=== PATIENT | male | born 1955 | race Caucasian/White ===

== ENCOUNTER 2021-02-05 10:15 | Emergency (ER) | payer OTHER, SELFPAY ==
[2021-02-05] VITALS (10 sets, daily range): BP systolic 140–159; BP diastolic 70–91; PULSE 90–98; RESP 11–26; TEMP 36.2; O2SAT 91–97
--- NOTE | ~2021-02-05 | CT_ITS ---
EXAMINATION: CT abdomen pelvis w con DATE: 02/05/2021 11:39 INDICATION: Right lower quadrant pain. History of diverticulitis. TECHNIQUE: Computed tomography (CT) of the abdomen and pelvis was performed with 100 cc Omnipaque 350 intravenous contrast. The dose-length product was 1307.27 mGy-cm. Automated exposure control and ite rative reconstruction technique were employed. COMPARISON: CT dated 03/17/2015. FINDINGS: There are emphysematous changes in the lung bases. There is a 5 mm. perifissural nodule, im age 16. No significant pleural or pericardial effusion. Heart size is normal. There is atherosclerosi s of the aorta without evidence for aneurysm. Fatty infiltration of the liver. The spleen, pancreas, adrenal glands and kidneys are unremarkable. T here is a debris filled duodenal diverticulum. Colonic diverticulosis without evidence for diverticul itis. Small fat-containing umbilical hernia. Normal appendix. Nonobstructive bowel gas pattern. No fr ee air or free fluid. Mildly enlarged prostate gland. Gallbladder is present. There is evidence for p rior sigmoid epiploic appendagitis. Mild lumbar spondylosis. Status post median sternotomy for CABG. IMPRESSION: 1. No acute abdominal abnormality. 2: No significant change to 5 mm. perifissural right lung nodule, likely benign. Follow-up low dose CT) 12 months recommended. Reviewed, dictated and finalized at location A. IMPRESSION: 1. No acute abdominal abnormality. 2: No significant change to 5 mm. perifissural right lung nodule, likely benig n. Follow-up low dose CT) 12 months recommended.
--- NOTE | 2021-02-05 10:59 | ED.GENADULT ---
HPI - General Adult General Chief complaint: Abdominal Pain Stated complaint: abd pain Time Seen by Provider: 02/05/21 10:25 Source: patient Mode of arrival: ambulatory Limitations: no limitations History of Present Illness HPI narrative: Patient with history of diabetes, hypertension, triple bypass, hypercholesterolemia, diverticulitis presents with chief complaint of right lower quadrant abdominal pain. Patient states the pain has been intermittent over the past 2 months however over the past 3 days it has been persistent and worsening. Patient reports feeling like he has some constipation however the past couple days he has had more bowel movements, but his abdominal pain has increased. He denies right leg, mucus or dark tarry stools. Patient states when he originally started having the intermittent abdominal pains he thought it was due to starting Ozempic as he has started it just before. He states that he has not been seen by his primary care regarding the issues. Patient states he has a history of diverticulitis and polyps. Patient's last colonoscopy has been within the last 5 years but he has not had one in the last year. Patient states that he did have a tooth pulled a week ago and was given Tylenol 3 but he has not taken those since the weekend. Patient also reports that he received his Covid vaccination on Thursday. He reports he did have a a fever of 102 ?F yesterday. Related Data Home Medications Medication Instructions Recorded Confirmed aspirin [Adult Low Dose Aspirin] PO 02/05/21 atorvastatin 80 mg PO HS 02/05/21 empagliflozin 25 mg PO DAILY 02/05/21 ezetimibe 10 mg PO DAILY 02/05/21 lisinopril 10 mg PO DAILY 02/05/21 metformin mg TID 02/05/21 metoprolol tartrate 50 mg PO Q12H 02/05/21 [id number]-vit K tablet PO 02/05/21 [Adults Multivitamin] omeprazole 20 mg PO DAILY 02/05/21 Allergies Allergy/AdvReac Type Severity Reaction Status Date / Time No Known Allergies Allergy Verified 02/05/21 10:46 Review of Systems Review of Systems: Narrative: CONSTITUTIONAL: Reports fever Denies chills or sweats. EYES: Denies visual changes, redness, or discharge. ENT: Denies rhinorrhea, congestion, sore throat, or otalgia. CARDIOVASCULAR: Denies chest pain, palpitations, or edema. RESPIRATORY: Denies cough or dyspnea. GASTROINTESTINAL:Reports abdominal pain and constipation, then increased stools Denies nausea, vomiting GENITOURINARY: Denies dysuria or hematuria. SKIN: Denies rash or itching. MUSCULOSKELETAL: Denies back pain, joint pain, or myalgia. NEUROLOGIC: Denies headache, numbness, dizziness, or weakness. PSYCHIATRIC: Denies anxiety or depression. [facility] Family History Family History (Updated 07/13/14 @ 07:13 by DOCTOR UNKNOWN) Father Family history of congestive heart failure Social History Social History Smoking end date: 11/16/01 Exam Narrative: Exam Narrative: GENERAL: Well-appearing, well-nourished. HEAD: Normocephalic, atraumatic. EYES: PERRLA and EOMI. ENT: Nares clear, no rhinorrhea or epistaxis. Mucous membranes moist. Bilateral TMs pearly garcía nonbulging NECK: Supple. No adenopathy or masses. No vertebral tenderness or loss of ROM. CHEST: Clear to auscultation. No respiratory distress. No wheezes rales or rhonchi HEART: Regular rate and rhythm. Normal peripheral pulses. ABDOMEN: Soft, nontender to palpation, nondistended, rotund abdomen, normal active bowel sounds. No bruises noted. EXTREMITIES: No acute changes in ROM. No edema. SKIN: Warm, dry, no rash. NEURO: No focal deficits. Alert and oriented x3. PSYCH: Normal mood and affect. Course Vital Signs Vital signs: Vital Signs Temperature 97.2 F L 02/05/21 10:19 Pulse Rate 98 02/05/21 10:19 Respiratory Rate 20 02/05/21 10:19 Blood Pressure 140/81 02/05/21 10:19 Pulse Oximetry 97 02/05/21 10:19 Temperature 97.2 F L 02/05/21 10:19 Pulse Rate 90 02/05/21 12:52 Respiratory
[2021-02-05] MEDS: METOCLOPRAMIDE HCL INJ 10 MG/2 ML VIAL IV PUSH (11:02)
[2021-02-05 11:05] LABS: Basophils Absolute Auto 0.1 K/mm3 (0.0-0.1); Basophils Percent Auto 0.5 % (0.2-1.2); Eosinophils Absolute Auto 0.1 K/mm3 (0-0.3); Eosinophils Percent Auto 0.8 % (0-4.4); Hematocrit 43.3 % (42.0-52.0); Hemoglobin 14.7 g/dL (14.0-18.0); Immature Granulocyte Absolute 0.05 K/mm3 (0.00-0.031); Immature Granulocyte Percent A 0.4 % (0-0.5); Lymphocytes Absolute Auto 2.37 K/mm3 (0.9-3.2); Lymphocytes Percent Auto 20.7 % (18.3-44.2); Mean Corpuscular HGB Conc 33.9 g/dl (32-36); Mean Corpuscular Hemoglobin 31.1 pg (26-34); Mean Corpuscular Volume 91.5 fl (80-100); Mean Platelet Volume 9.1 fl (7.4-10.4); Monocytes Absolute Auto 1.3 K/mm3 (0.1-0.6); Monocytes Percent Auto 11.3 % (2.6-8.5); Neutrophils Absolute Auto 7.6 K/mm3 (1.3-6.7); Neutrophils Percent Auto 66.3 % (45.5-73.1); Platelet Count Result 179 k/mm3 (150-375); Red Blood Count 4.73 M/mm3 (4.6-6.20); Red Cell Distribution Width 12.4 % (11.5-14.5); White Blood Count 11.5 K/mm3 (4.5-10.0)
[2021-02-05 11:15] LABS: Add Urine Microscopic? YES; Appearance Urine Clear (Clear); Bilirubin Urine Negative (Negative); Blood Urine Negative (Negative); Color Urine Yellow (Yellow); Glucose Urine UA 3+ mg/dL (Negative); Ketones Urine 1+ mg/dL (Negative); Leukocyte Esterase Ur Negative LEU/UL (Negative); Mucus Urine Rare /lpf; Nitrate Urine Negative (Negative); Protein Urine Negative (Negative); RBC Urine 0-2 /hpf (0-2); Urobilinogen Urine Negative mg/dL (<2.0); WBC Urine 0-3 /hpf
[2021-02-05 11:16] LABS: Specific Grav Ur 1.038 (1.001-1.035)
[2021-02-05 11:19] LABS: Alanine Aminotransferase 23 U/L (4-50); Albumin Level 3.8 g/dL (3.5-5.1); Alkaline Phosphatase 64 U/L (38-126); Anion Gap 8 mmol/L (8-16); Aspartate Amino Transferase 28 U/L (17-59); Bilirubin,Total 0.9 mg/dL (0.2-1.3); Blood Urea Nitrogen 17 mg/dL (9-20); Carbon Dioxide 23 mmol/L (22-30); Chloride 103 mmol/L (98-107); Estimated CRCL calculation 96 ml/min; Estimated Glomerular Filt Rate > 60; Glucose 212 mg/dL (75-110); Lipase 56 U/L (23-300); Potassium 3.7 mmol/L (3.4-5.0); Sodium 134 mmol/L (137-145)
== END 2021-02-05 12:53 | disposition home or self-care (01) ==
PROVIDERS: Physician Assistant; Emergency Provider Emergency Medicine
DX: R10.31 Right lower quadrant pain (principal); E11.9 Type 2 diabetes mellitus without complications; I10 Essential (primary) hypertension; E78.00 Pure hypercholesterolemia, unspecified; Z79.84 Long term (current) use of oral hypoglycemic drugs; Z79.82 Long term (current) use of aspirin; Z95.1 Presence of aortocoronary bypass graft; I25.10 Atherosclerotic heart disease of native coronary artery without angina pectoris
CPT/HCPCS: 36415; 74177; 80053; 81001; 83690; 85025; 96374; 99284; J2765; Q9967

== ENCOUNTER 2022-06-15 00:29 | Emergency (ER) | payer MEDICARE, OTHER, SELFPAY ==
[2022-06-15] VITALS (18 sets, daily range): BP systolic 146–178; BP diastolic 51–83; PULSE 60–77; RESP 15–24; TEMP 36.2; O2SAT 93–100
--- NOTE | ~2022-06-15 | CT_ITS ---
EXAMINATION: CT abdomen pelvis w con DATE: 06/15/2022 02:09 INDICATION: RUQ PAIN. TECHNIQUE: Computed tomography (CT) of the abdomen and pelvis was performed with 100 mL Omnipaque-300 intravenous contrast. Automated exposure control and iterative reconstruction technique were employe d. The dose-length product was 1193.29 mGy-cm. COMPARISON: 02/05/2021. FINDINGS: Lower thorax: Left lower lobe air cysts, stable. Unchanged right middle lobe intrapulmonary lymph nod e. Intact lower sternotomy wires. Coronary artery calcification. Liver: Normal. Biliary/Gallbladder: Gallbladder is normal. No bile duct dilation. Pancreas: No mass or duct dilation. Spleen: Normal. Adrenals:No mass. Kidneys: No mass, stone, or hydronephrosis. GI tract: Duodenal diverticulum. No small or large bowel dilation. Appendix not visualized. Diverticu losis without diverticulitis. Mesentery/Peritoneum: No ascites, mass, or free air. Retroperitoneum: No mass. Atherosclerotic abdominal aortic and/or arterial calcifications. Pelvis: Bladder wall thickening likely due to outlet compromise from prostatomegaly. Soft Tissues: Soft tissues and body wall unremarkable. Bones: No acute osseous finding. IMPRESSION: No acute abdominopelvic process. Reviewed, dictated and finalized at location K.
[2022-06-15] MEDS: SODIUM CHLORIDE 0.9% IV 1,000 ML 999 ML IV CONT (01:09)
[2022-06-15] MEDS: ONDANSETRON INJ 4 MG/2 ML VIAL IV PUSH (01:09)
[2022-06-15] MEDS: HYDROmorphone HCL INJ (*CRX) 1 MG/ML SYR 0.5 MG IV PUSH (01:09)
[2022-06-15] MEDS: SODIUM CHLORIDE 0.9% IV 100 ML 500 ML (01:10)
[2022-06-15 01:27] LABS: Basophils Absolute Auto 0.1 K/mm3 (0.0-0.1); Basophils Percent Auto 0.6 % (0.2-1.2); Eosinophils Absolute Auto 0.6 K/mm3 (0-0.3); Eosinophils Percent Auto 5.2 % (0-4.4); Hematocrit 41.9 % (42.0-52.0); Hemoglobin 13.3 g/dL (14.0-18.0); Immature Granulocyte Absolute 0.03 K/mm3 (0.00-0.031); Immature Granulocyte Percent A 0.2 % (0-0.5); Lymphocytes Percent Auto 31.7 % (18.3-44.2); Mean Corpuscular HGB Conc 31.7 g/dl (32-36); Mean Corpuscular Hemoglobin 30.3 pg (26-34); Mean Corpuscular Volume 95.4 fl (80-100); Mean Platelet Volume 10.1 fl (7.4-10.4); Monocytes Absolute Auto 1.2 K/mm3 (0.1-0.6); Monocytes Percent Auto 9.9 % (2.6-8.5); Neutrophils Absolute Auto 6.4 K/mm3 (1.3-6.7); Neutrophils Percent Auto 52.4 % (45.5-73.1); Platelet Count Result 271 k/mm3 (150-375); Red Blood Count 4.39 M/mm3 (4.6-6.20); Red Cell Distribution Width 13.3 % (11.5-14.5); White Blood Count 12.3 K/mm3 (4.5-10.0)
--- NOTE | 2022-06-15 01:32 | ED.ABDPAIN ---
HPI - Abdominal Pain General Chief Complaint: Abdominal Pain Stated Complaint: abd/flank pain Time Seen by Provider: 06/15/22 00:45 History of Present Illness HPI narrative: Patient is a 66-year-old male complaining of right mid abdominal pain, dull, 8 out of 10, nonradiating, worse after eating started tonight and has been constant. Patient states that he has had the same pain for the past few months now and usually worse after eating but tonight it has persisted and that is why he is here. Patient denies any chest pain, shortness of breath, nausea, vomiting, diarrhea, fever or chills. Related Data Home Medications Medication Instructions Recorded Confirmed aspirin 81 mg tablet PO 02/05/21 atorvastatin 80 mg tablet 80 mg PO HS 02/05/21 empagliflozin 25 mg tablet 25 mg PO DAILY 02/05/21 ezetimibe 10 mg tablet 10 mg PO DAILY 02/05/21 lisinopril 20 mg tablet 10 mg PO DAILY 02/05/21 metformin 1,000 mg tablet mg TID 02/05/21 metoprolol tartrate 100 mg tablet 50 mg PO Q12H 02/05/21 multivit with minerals-iron 18 tablet PO 02/05/21 mg-folic ac 400 mcg-vit K 25 mcg tablet (Adults Multivitamin) omeprazole 20 mg capsule,delayed 20 mg PO DAILY 02/05/21 release Allergies Allergy/AdvReac Type Severity Reaction Status Date / Time No Known Allergies Allergy Verified 06/15/22 00:50 Review of Systems Review of Systems: All systems reviewed & are unremarkable except as noted in HPI and below Constitutional: Constitutional: Denies body ache(s), Denies chills, Denies excessive sweating, Denies fatigue, Denies fever(s), Denies headache(s), Denies lethargy, Denies malaise, Denies weakness and Denies weight loss Eyes: Eyes: Denies blurry vision, Denies change in vision and Denies loss of vision ENT: Denies dizziness, Denies ear discharge, Denies headache(s), Denies lip swelling, Denies epistaxis, Denies nasal congestion, Denies neck pain, Denies throat swelling and Denies tongue swelling Cardiovascular: Cardiovascular: Denies chest pain, Denies chest pain at rest, Denies chest pain with activity, Denies diaphoresis, Denies rapid heart rate, Denies edema, Denies irregular heart rhythm, Denies lightheadedness, Denies palpitations, Denies dyspnea and Denies dyspnea on exertion Respiratory: Respiratory: Denies chest congestion, Denies cough, Denies hemoptysis, Denies dyspnea and Denies dyspnea on exertion Gastrointestinal: Gastrointestinal: Denies melena, Denies hematochezia, Denies diarrhea, Denies nausea, Denies vomiting and Denies hematemesis Musculoskeletal: Musculoskeletal: Denies abnormal gait, Denies deformity, Denies joint swelling, Denies limited range of motion, Denies neck pain and Denies numbness Neurologic: Denies Abnormal speech present, Denies abnormal gait, Denies confusion, Denies dizziness, Denies headache(s), Denies focal weakness, Denies loss of vision, Denies numbness, Denies Other visual disturbances, Denies Sensory deficit (Neuro) and Denies weakness Psychiatric: Psychiatric: Denies confusion, Denies depression, Denies auditory hallucinations, Denies homicidal ideation and Denies suicidal ideation Endocrine: Endocrine: Denies cold intolerance, Denies excessive sweating, Denies fatigue, Denies heat intolerance and Denies palpitations Hematologic/Lymphatic: Hematologic/Lymphatic: Denies easy bleeding and Denies easy bruising Allergic/Immunologic: Allergic/Immunologic: Denies lip swelling, Denies throat swelling and Denies tongue swelling [facility] Family History Family History (Updated 07/13/14 @ 07:13 by DOCTOR UNKNOWN) Father Family history of congestive heart failure Social History Social History Smoking end date: 11/16/01 Comments Past medical history: Hypertension, hyperlipidemia, diabetes Family history: Hypertension diabetes Social history: Non-smoker no EtOH no drug use, lives at home Exam Const: General: cooperative, healthy appearing, comfortable, no acute distress, well developed,
[2022-06-15 01:55] LABS: Alanine Aminotransferase 20 U/L (6-50); Albumin Level 3.3 g/dL (3.5-5.1); Alkaline Phosphatase 54 U/L (38-126); Anion Gap 7 mmol/L (8-16); Aspartate Amino Transferase 23 U/L (17-59); Bilirubin,Total 0.5 mg/dL (0.2-1.3); Blood Urea Nitrogen 19 mg/dL (9-20); Calcium 8.5 mg/dL (8.4-10.2); Carbon Dioxide 26 mmol/L (22-30); Chloride 104 mmol/L (98-107); Estimated CRCL calculation 97 ml/min; Estimated Glomerular Filt Rate > 60; Glucose 137 mg/dL (65-110); Lipase 74 U/L (23-300); Potassium 4.7 mmol/L (3.4-5.0); Sodium 137 mmol/L (137-145)
[2022-06-15 03:10] LABS: Appearance Urine Clear (Clear); Bilirubin Urine Negative (Negative); Blood Urine Negative (Negative); Color Urine Yellow (Yellow); Glucose Urine UA 3+ mg/dL (Negative); Ketones Urine Negative (Negative); Leukocyte Esterase Ur Negative LEU/UL (Negative); Nitrate Urine Negative (Negative); Protein Urine Negative (Negative); Specific Grav Ur 1.015 (1.001-1.035); Urobilinogen Urine 0.2 mg/dL (<2.0)
[2022-06-15 03:13] LABS: Mucus Urine Rare /lpf
[2022-06-15 03:14] LABS: Add Urine Microscopic? YES
[2022-06-15] MEDS: HYDROcodone/acetaminophen (*CRX) 5-325 MG TABLET 1 TAB PO (03:46)
== END 2022-06-15 03:58 | disposition home or self-care (01) ==
PROVIDERS: Emergency Provider Emergency Medicine
DX: R10.9 Unspecified abdominal pain (principal); E78.5 Hyperlipidemia, unspecified; E11.9 Type 2 diabetes mellitus without complications; Z79.84 Long term (current) use of oral hypoglycemic drugs; Z79.01 Long term (current) use of anticoagulants; Z87.891 Personal history of nicotine dependence
CPT/HCPCS: 36415; 74177; 80053; 81001; 83690; 85025; 96361; 96374; 96375; 99284; A9270; J1170; J2405; J7030; Q9967

== ENCOUNTER 2022-08-22 11:39 | Inpatient (IN) | payer MEDICARE, OTHER, SELFPAY ==
[2022-08-22] VITALS (16 sets, daily range): BP systolic 116–145; BP diastolic 48–77; PULSE 70–90; RESP 12–21; TEMP 36.3–36.8; O2SAT 98–100; BMI 33.7
--- NOTE | ~2022-08-22 | XR_ITS ---
EXAMINATION: XR chest 2V DATE: 08/22/2022 12:10 INDICATION: Chest pain TECHNIQUE: PA and lateral views of the chest are obtained. COMPARISON: 04/18/2019, 10/29/2011 FINDINGS: The lungs are free of acute opacities. No pleural effusion or pneumothorax. The cardiomedia stinal silhouette is normal. There is mild thoracic spondylosis. Median sternotomy wires and mediasti nal surgical clips are seen, likely from prior coronary artery bypass grafting. IMPRESSION: 1. No acute cardiopulmonary abnormality. Reviewed, dictated and finalized at location A.
--- NOTE | 2022-08-22 11:43 | ECG_ITS ---
Measurements Intervals [place] Rate: 73 P: 44 FL: 158 QRS: -13 QRSD: 99 T: -41 QT: 386 QTc: 427 Interpretive Statements SINUS RHYTHM INCOMPLETE RIGHT BUNDLE BRANCH BLOCK [90+ ms QRS DURATION, TERMINAL R IN V1/V2, 40+ ms S IN I/aVL/V4/V5/V6] T-WAVE ABNORMALITY CONSIDER INFERIOR ISCHEMIA ABNORMAL ECG COMPARED WITH 04/18/2019/INFERIOR T-WAVE INVERSIONS ARE SEEN Electronically Signed On 08-22-2022 13:52:56 CDT by Jose D Harris M.D.
[2022-08-22 12:14] LABS: Basophils Absolute Auto 0.1 K/mm3 (0.0-0.1); Basophils Percent Auto 0.7 % (0.2-1.2); Eosinophils Absolute Auto 0.4 K/mm3 (0-0.3); Eosinophils Percent Auto 4.5 % (0-4.4); Hemoglobin 13.2 g/dL (14.0-18.0); Immature Granulocyte Absolute 0.01 K/mm3 (0.00-0.031); Immature Granulocyte Percent A 0.1 % (0-0.5); Lymphocytes Absolute Auto 2.67 K/mm3 (0.9-3.2); Lymphocytes Percent Auto 32.5 % (18.3-44.2); Mean Corpuscular Hemoglobin 30.1 pg (26-34); Mean Corpuscular Volume 91.3 fl (80-100); Mean Platelet Volume 9.1 fl (7.4-10.4); Monocytes Absolute Auto 0.7 K/mm3 (0.1-0.6); Neutrophils Absolute Auto 4.5 K/mm3 (1.3-6.7); Neutrophils Percent Auto 54.2 % (45.5-73.1); Platelet Count Result 277 k/mm3 (150-375); Red Blood Count 4.38 M/mm3 (4.6-6.20); Red Cell Distribution Width 13.2 % (11.5-14.5); White Blood Count 8.2 K/mm3 (4.5-10.0)
[2022-08-22 12:28] LABS: Prothrombin Time 12.9 Seconds (11.1-14.7)
[2022-08-22 12:43] LABS: Alanine Aminotransferase 25 U/L (6-50); Albumin Level 3.8 g/dL (3.5-5.1); Alkaline Phosphatase 50 U/L (38-126); Anion Gap 9 mmol/L (8-16); Aspartate Amino Transferase 34 U/L (17-59); Bilirubin,Total 0.8 mg/dL (0.2-1.3); Blood Urea Nitrogen 15 mg/dL (9-20); Calcium 8.7 mg/dL (8.4-10.2); Carbon Dioxide 21 mmol/L (22-30); Chloride 108 mmol/L (98-107); Estimated CRCL calculation 112 ml/min; Estimated Glomerular Filt Rate > 60; Glucose 122 mg/dL (65-110); Lipase 121 U/L (23-300); Potassium 4.3 mmol/L (3.4-5.0); Sodium 138 mmol/L (137-145)
--- NOTE | 2022-08-22 13:13 | ED.CHESTPAIN ---
HPI - Chest Pain General Chief Complaint: Chest Pain Stated Complaint: chest pain Time Seen by Provider: 08/22/22 12:02 Source: patient and RN notes reviewed Mode of arrival: ambulatory Limitations: no limitations History of Present Illness HPI narrative: This is a 66 year old male with history of hypertension, DM, CAD s/p CABG , and hyperlipidemia who presents for evaluation of chest pain. Patient reports intermittent midsternal chest pain for months. He states this pain is located midsternal and it radiates to his left shoulder and left arm. He has associated nausea and dizziness. Today he had episode of nausea and emesis before he developed chest pain. He describes this pain as burning. He denies associated diaphoresis or sob. He states his pain seem worse with exertion intermittently and supine position at night. He states he has not had stress test in over 4 years . His pain was 8/10 at max intensity and his pain currently is 1 /10. Risk Factors Coronary artery disease risk factors: hyperlipidemia and hypertension Related Data Home Medications Medication Instructions Recorded Confirmed aspirin 81 mg tablet 81 mg PO DAILY 02/05/21 08/22/22 atorvastatin 80 mg tablet 80 mg PO HS 02/05/21 08/22/22 empagliflozin 25 mg tablet 25 mg PO DAILY 02/05/21 08/22/22 lisinopril 20 mg tablet 10 mg PO DAILY 02/05/21 08/22/22 metformin 1,000 mg tablet 1,000 mg TID 02/05/21 08/22/22 metoprolol tartrate 100 mg tablet 50 mg PO Q12H 02/05/21 08/22/22 multivit with minerals-iron 18 1 tablet PO DAILY 02/05/21 08/22/22 mg-folic ac 400 mcg-vit K 25 mcg tablet (Adults Multivitamin) omeprazole 20 mg capsule,delayed 20 mg PO DAILY 02/05/21 08/22/22 release acetaminophen 500 mg tablet 1,000 mg PO QID PRN Pain 08/22/22 08/22/22 polyethylene glycol 3350 17 17 g PO DAILY 08/22/22 08/22/22 gram/dose oral powder semaglutide 1 mg/dose (4 mg/3 mL) 1 mg subcut WEEKLY 08/22/22 08/22/22 subcutaneous pen injector sucralfate 100 mg/mL oral 5 ml PO TID 08/22/22 08/22/22 suspension Allergies Allergy/AdvReac Type Severity Reaction Status Date / Time No Known Allergies Allergy Verified 06/15/22 00:50 Review of Systems Review of Systems: All systems reviewed & are unremarkable except as noted in HPI and below Constitutional: Constitutional: Denies chills, Denies fatigue and Denies fever(s) Cardiovascular: Cardiovascular: Reports chest pain and Reports radiating jaw, neck or arm pain Respiratory: Respiratory: Denies chest congestion, Denies cough and Denies dyspnea Gastrointestinal: Gastrointestinal: Denies abdominal pain, Denies bloating, Reports nausea and Reports vomiting PMFSH Past Medical History Medical History (Updated 08/22/22 @ 20:34 by Lilian Dang MD) Coronary artery disease Diverticulitis Hyperlipidemia Hypertension Obstructive sleep apnea Skin cancer Type 2 diabetes mellitus Surgical History Surgical History (Updated 08/22/22 @ 18:47 by Yuridia Taylor PA-C) History of cardiac catheterization History of colonoscopy with polypectomy History of coronary artery bypass graft (12/2010) Family History Family History Father Family history of congestive heart failure Diabetes mellitus Mother Diabetes mellitus Sibling Hypothyroidism Social History Social History (Updated 08/22/22 @ 18:48 by Yuridia Taylor PA-C) Social History: Surrogate medical decision maker: Cristy Mace, spouse. Code status: Full code. Smoking packs per day: 1 Smoking cigarettes per day: 20.0 Smoking status: Former smoker Smoking end date: 11/16/01 Alcohol intake: never Substance use: never Spiritual care concerns: No Exam Const: General: no acute distress and alert Nutritional Appearance: well nourished Orientation/consciousness: patient oriented x3 Limitations: no limitations HENMT: Head: normal to inspection Eyes: EOM: E
--- NOTE | 2022-08-22 13:15 | ECG_ITS ---
Measurements Intervals [place] Rate: 88 P: 34 UT: 153 QRS: -25 QRSD: 85 T: -35 QT: 362 QTc: 439 Interpretive Statements SINUS RHYTHM LOW QRS VOLTAGE IN PRECORDIAL LEADS [QRS DEFLECTION < 1.0 mV IN CHEST LEADS] INFERIOR T-WAVE ABNORMALITY CONSIDER ISCHEMIA POOR R-WAVE PROGRESSION ABNORMAL ECG COMPARED TO ECG 08/22/2022 11:46:58 NO SIGNIFICANT CHANGES Electronically Signed On 08-22-2022 13:58:10 CDT by Jose D Harris M.D.
[2022-08-22] MEDS: NITROGLYCERIN SL 0.4 MG TABLET SUBLINGUAL (13:26)
[2022-08-22] MEDS: ASPIRIN 81 MG CHEWABLE TABLET 324 MG PO (13:27)
[2022-08-22] MEDS: ENOXAPARIN 100 MG/ML SYRINGE SUB-Q (14:07)
[2022-08-22 14:16] LABS: SARS-CoV-2 RNA PCR Negative
[2022-08-22 15:47] LABS: Troponin I 0.265 ng/mL (0.000-0.034)
--- NOTE | 2022-08-22 16:54 | PM.CNCAR ---
Assessment and Plan Assessment and plan (1) Acute coronary syndrome with high troponin: Code(s): I24.9 - Acute ischemic heart disease, unspecified Status: Acute Plan This is a 66-year-old man with coronary artery disease noted to have left main and proximal right coronary stenosis 11 years ago was referred for surgical revascularization at that time and has done well. His interval follow-up has been at the [facility]. He now has been having ischemic type chest pain off and on both with and without exertion for about a month. He has some new inferior T-wave inversions and modestly elevated troponin level. He should undergo a follow-up angiogram in this situation he understands this and is agreeable. Obviously sedated since Thursday evening this will probably happen on Thursday unless he destabilized is significantly prior to then. I will keep him on aspirin, I will load him with clopidogrel this evening continue his beta-nusrat KABAR-inhibitor and statin. Jose D Harris MD [facility] History of Present Illness History of Present Illness Consult date/time: 08/22/22 16:54 Consult reason: chest pain Reason For Visit: NSTEMI Narrative: This is a pleasant 66-year-old man I am seeing at the request of the hospitalist because of chest pain and elevation of troponin with evidence of ACS. He came to the hospital emergency room earlier today for symptoms of intermittent chest pain off and on for about a month. He states that he has been having episodes of chest pain that occur sometimes with exertion and sometimes when he lies in the recumbent position in his bed to try to go to sleep. The symptoms were at times amenable to for changing to this seated position and would become alleviated. At other times they would become alleviated if he return into the left lateral supine position. In any event the symptoms today were somewhat more severe and so he came to the emergency room where he was evaluated. His emergency room ECG shows sinus rhythm with some inferior wall T-wave inversions in leads 3 and AVF which were not seen in previous ECGs. His troponin level was mildly elevated at 0.2 he was given a nitroglycerin and aspirin in the emergency room and admitted to the IMU. When I came in to see him he was lying in bed in no distress of any kind watching television and offers no other complaints. The patient is known to have coronary artery disease and according to the records presented to this hospital back in 2010. He was having intermittent ischemic chest pain at that time was brought to the cardiac catheterization lab where he was found to have significant left main and proximal right coronary artery disease. He had a balloon pump placed and was transferred to [facility] where he underwent bypass grafting. He received an BEN graft to the LAD, saphenous vein graft to the obtuse marginal and saphenous vein graft to the RPDA. He did well following that and following that did not see any of the doctors in our practice. He transferred his care to the [facility] for insurance reasons and has been following at the [facility] since then. He says he has been doing well cardiac-shay and has not had any admissions for a cardiac problems at the [facility] has not undergone a catheterization since his operation. He also has non insulin-dependent diabetes and hypertension. Review of Systems Constitutional: Constitutional: Reports no additional constitutional complaints Eyes: Eyes: Reports no additional eye complaints ENT: Reports system reviewed and no additional complaints, except as documented Cardiovascular: Cardiovascular: Reports as per HPI Respiratory: Respiratory: Reports no additional respiratory complaints Gastrointestinal: Gastrointestinal: Reports abdominal pain Musculoskeletal: Musculoskeletal: Reports no additional musculoskeletal complaints Integumentary/Breasts: Skin/Breast: Reports system reviewed and no additional complaints, except as docu
[2022-08-22] MEDS: CLOPIDOGREL BISULFATE 300 MG TABLET 600 MG PO (17:32)
[2022-08-22 18:55] LABS: Troponin I 0.291 ng/mL (0.000-0.034)
--- NOTE | 2022-08-22 19:45 | PM.IMHP ---
H&P: HPI History of Present Illness Date/Time: 08/22/22 19:15 Chief Complaint: Chest pain. Narrative: This is a 66-year-old male with coronary artery disease status post coronary artery bypass grafting, hypertension, hyperlipidemia, and type 2 diabetes mellitus who presented to the emergency department for evaluation of chest pain that has been intermittent over the last few weeks. He describes a burning like discomfort in the mid sternum which at times radiates up into the left jaw, arm, and shoulder. It seems to occur more so when he is lying down in bed however he has noticed it with exertion as well. At times he feels a bit lightheaded when it occurs but not every time. Nitroglycerin given in the emergency department seemed to help the discomfort and it has not returned. He denies associated shortness of breath, nausea, and vomiting. Initial troponin was elevated 0.230 and his 3 and 6 hour troponins have remained pretty flat. EKG today shows some inferior wall T-wave inversions not noticed on previous tracings and he is being admitted in this setting for Cardiology consultation and further monitoring. With further questioning he reports that he has been having ?stomach problems? for quite sometimes and in fact he had an upper endoscopy done just last Thursday at the [facility] at which time they found ?evidence of ischemia? and he was started on sucralfate in addition to omeprazole which has beneficial. At the time my evaluation he has no active discomfort. Review of Systems Review of Systems: Twelve systems were reviewed. He has lost about 50 pounds over the last couple of years which he attributes to the ongoing ?stomach issues? that he has been having. To his knowledge she had no evidence of peptic ulcers, esophagitis, or gastritis on the EGD last week. He has occasional vomiting of undigested food but that has improved since starting the sucralfate. No melena or hematochezia. He denies palpitations, racing heart, and pleuritic pain. No shortness of breath. He denies lower extremity edema and calf pain. No history of venous thromboembolism. His diabetes is much better controlled after is a 50 pound weight loss with the last A1c of 6.7% per patient report. Except as documented, all other systems were reviewed and are negative. [facility] Past Medical History Medical History Coronary artery disease Diverticulitis Hyperlipidemia Hypertension Obstructive sleep apnea Skin cancer Type 2 diabetes mellitus Surgical History Surgical History History of cardiac catheterization History of colonoscopy with polypectomy History of coronary artery bypass graft (12/2010) Family History Family History Father Family history of congestive heart failure Diabetes mellitus Mother Diabetes mellitus Sibling Hypothyroidism Social History Social History Social History: Surrogate medical decision maker: Cristy Mace, spouse. Code status: Full code. Smoking packs per day: 1 Smoking cigarettes per day: 20.0 Smoking status: Former smoker Smoking end date: 11/16/01 Alcohol intake: never Substance use: never Spiritual care concerns: No Meds Home Medications and Allergies Home Medications Medication Instructions Recorded Confirmed Type aspirin 81 mg tablet 81 mg PO DAILY 02/05/21 08/22/22 History atorvastatin 80 mg tablet 80 mg PO HS 02/05/21 08/22/22 History empagliflozin 25 mg tablet 25 mg PO DAILY 02/05/21 08/22/22 History lisinopril 20 mg tablet 10 mg PO DAILY 02/05/21 08/22/22 History metformin 1,000 mg tablet 1,000 mg TID 02/05/21 08/22/22 History metoprolol tartrate 100 mg tablet 50 mg PO Q12H 02/05/21 08/22/22 History multivit with minerals-iron 18 1 tablet PO DAILY 02/05/21 08/22/22 Hist
[2022-08-22 20:21] LABS: Glucose Point of Care 111 mg/dl (65-105)
[2022-08-22] MEDS: SUCRALFATE SUSP 100 MG/ML 10 ML UDC 500 MG PO (20:36)
[2022-08-22] MEDS: METOPROLOL TARTRATE 50 MG TAB PO (20:37)
[2022-08-23] VITALS (17 sets, daily range): BP systolic 102–139; BP diastolic 56–76; PULSE 67–89; RESP 14–22; TEMP 36.1–36.6; O2SAT 99–100
[2022-08-23] MEDS: NITROGLYCERIN SL 0.4 MG TABLET SUBLINGUAL (01:01)
[2022-08-23 08:43] LABS: Glucose Point of Care 88 mg/dl (65-105)
[2022-08-23] MEDS: ACETAMINOPHEN 325 MG TABLET 650 MG PO (08:47)
[2022-08-23] MEDS: lisinopriL 10 MG TABLET PO (08:48)
[2022-08-23] MEDS: ATORVASTATIN 40 MG TABLET 80 MG PO (08:48)
[2022-08-23] MEDS: EMPAGLIFLOZIN 25 MG TABLET PO (08:48)
[2022-08-23] MEDS: ASPIRIN 81 MG CHEWABLE TABLET PO (08:48)
[2022-08-23] MEDS: MULTIVITAMINS /C LUTEIN (CENTRUM SILVER) TABLET *BKC 1 TAB PO (08:49)
[2022-08-23] MEDS: METOPROLOL TARTRATE 50 MG TAB PO ×2 (08:49→20:23)
[2022-08-23] MEDS: PANTOPRAZOLE 40 MG TABLET PO (08:49)
[2022-08-23] MEDS: SUCRALFATE SUSP 100 MG/ML 10 ML UDC 500 MG PO ×3 (08:49→16:55)
[2022-08-23] MEDS: polyethylene glycoL 3350 17 GM POWD.PACK PO (08:50)
--- NOTE | 2022-08-23 09:27 | PM.PNCARD ---
Progress Note: A&P Assessment and Plan (1) Acute coronary syndrome with high troponin: Code(s): I24.9 - Acute ischemic heart disease, unspecified Status: Acute Plan This is a 66-year-old man with multivessel coronary disease who has done well following surgical revascularization a long time ago. He is stable clinically this morning will plan for follow-up angiography of his picayune coronaries and bypass graft on Thursday with further recommendations to be forthcoming with those findings Jose D Harris MD [facility] Subjective Date/time seen: Date of service: 08/23/22 09:27 Interval history: Follow-up visit in this 66-year-old man with coronary artery disease surgical revascularization 12 years ago as detailed in my note. He presents now with acute coronary syndrome. Plans are for follow-up angiography on Thursday. Today the patient feels well he does not have any ischemic symptoms. Troponin levels were flat and did not rise from 0.2. Exam Const: General: comfortable and no acute distress HENMT: Mouth: Yes moist mucous membranes Eyes: Sclera: sclerae normal Pupils: Equal, round and reactive pupils present Neck: Neck: supple and no JVD Other: Carotid pulses are unremarkable and without bruits Resp: Effort & Inspection: normal respiratory effort Auscultation: clear to auscultation bilaterally Cardio: Rate: regular rate Rhythm: regular rhythm Other: PMI difficult to palpate no murmur no gallop GI: GI Palp: Yes Soft to palpation Auscultation: normal bowel sounds Skin: General skin exam: normal color Neuro: Other: Alert and oriented x3 Extrem: Other: No edema, very good distal perfusion Objective Data Vital Signs Vital Signs: Vital Signs - 24 hr 08/22/22 11:48 08/22/22 13:28 08/22/22 13:28 Temperature 36.6 C Pulse Rate 79 80 81 Respiratory Rate 21 H 16 Blood Pressure 145/62 H 132/77 Pulse Oximetry 99 99 Oxygen Delivery 08/22/22 13:32 08/22/22 11:46 08/22/22 11:49 Temperature Pulse Rate 90 81 85 Respiratory Rate 17 17 Blood Pressure 118/68 145/62 H Pulse Oximetry 99 Oxygen Delivery 08/22/22 12:00 08/22/22 12:02 08/22/22 12:11 Temperature Pulse Rate 77 83 81 Respiratory Rate 16 20 Blood Pressure 138/48 L 134/62 Pulse Oximetry 99 99 99 Oxygen Delivery 08/22/22 12:15 08/22/22 12:17 08/22/22 15:30 Temperature 36.3 C L Pulse Rate 79 79 73 Respiratory Rate 12 18 18 Blood Pressure 137/58 L 116/69 Pulse Oximetry 98 99 100 Oxygen Delivery 08/22/22 16:00 08/22/22 16:00 08/22/22 18:00 Temperature Pulse Rate 70 75 Respiratory Rate Blood Pressure Pulse Oximetry Oxygen Delivery Room Air 08/22/22 17:15 08/22/22 20:00 08/22/22 20:00 Temperature 36.6 C 36.8 C Pulse Rate 74 70 Respiratory Rate 16 20 Blood Pressure 124/70 122/76 Pulse Oximetry 99 100 Oxygen Delivery Room Air 08/22/22 20:00 08/23/22 00:00 08/22/22 22:00 Temperature 36.3 C L Pulse Rate 71 76 80 Respiratory Rate 20 Blood Pressure 127/76 Pulse Oximetry 99 Oxygen Delivery 08/23/22 00:00 08/23/22 02:00 08/23/22 00:00 Temperature Pulse Rate 75 67 Respiratory Rate Blood Pressure Pulse Oximetry Oxygen Delivery Room Air 08/23/22 04:00 08/23/22 04:00 08/23/22 04:00 Temperature 36.4 C Pulse Rate 78 70 Respiratory Rate 20 Blood Pressure 130/57 L Pulse Oximetry 100 Oxygen Delivery Room Air 08/23/22 06:00 08/23/22 07:45 08/23/22 08:49 Temperature 36.6 C Pulse Rate 75 76 89 Respiratory Rate 16 Blood Pressure 139/71 Pulse Oximetry 100 Oxygen Delivery 08/23/22 09:03 Temperature Pulse Rate Respiratory Rate Blood Pressure Pulse Oximetry 99 Oxygen Delivery Room Air Intake/Output Intake/Output: Intake & Output 08/20/22 08/21/22 08/22/22 08/23/22 23:59 23:59 23:59 23:59 Intake Total 1190 Balance 1190 Meds/Results Medications:
[2022-08-23] MEDS: CLOPIDOGREL BISULFATE 75 MG TABLET PO (09:47)
--- NOTE | 2022-08-23 10:16 | PHAR ---
HOME MED: OZEMPIC (SEMAGLUTIDE) 1MG/0.75 ML PEN, TOTAL OF 3 ML IN EACH PEN; INJECT 1 MG (0.75 ML) UNDER THE SKIN EVERY WEEK FOR BLOOD SUGAR CONTROL. 2 PENS SENT TO PHARMACY. BOX WITH A 2 ON IT IS OPEN. BOX WITH 3 IS SEALED. VERIFIED BY PHARMACY.
--- NOTE | 2022-08-23 12:17 | PM.IMPN ---
Progress Note: A&P Assessment and Plan (1) Acute coronary syndrome with high troponin: Code(s): I24.9 - Acute ischemic heart disease, unspecified Status: Acute Assessment and Plan: His story is a bit atypical for cardiac pain and initially it seemed as though his discomfort was probably secondary to a GI etiology given reports of an abnormal upper endoscopy done just last week at the [place]. his EKG however shows new inferior T-wave inversions and in the setting of a modestly elevated but flat troponin, Dr. Harris recommends cardiac catheterization. He has been loaded with clopidogrel and we will continue aspirin, statin, beta-nusrat, and AKBAR-inhibitor. Continue omeprazole and sucralfate. (2) Coronary artery disease: Code(s): I25.10 - Atherosclerotic heart disease of [place] coronary artery without angina pectoris Status: Acute Assessment and Plan: Plan is as detailed above. (3) Type 2 diabetes mellitus: Code(s): E11.9 - Type 2 diabetes mellitus without complications Status: Acute Assessment and Plan: Continue semaglutide. On . Hold metformin in anticipation of cardiac catheterization on Thursday. Initiate sliding scale insulin, Accu-Cheks, and hypoglycemic protocol. (4) Obstructive sleep apnea: Code(s): G47.33 - Obstructive sleep apnea (adult) (pediatric) Status: Acute Assessment and Plan: He has not used a CPAP for a couple of years since his weight loss. (5) Hyperlipidemia: Code(s): E78.5 - Hyperlipidemia, unspecified Status: Acute Assessment and Plan: Continue statin; LFTs within normal limits (6) Hypertension: Code(s): I10 - Essential (primary) hypertension Status: Acute Assessment and Plan: Blood pressures are stable and well controlled. Continue antihypertensives and monitor. Plan Coronary artery disease status post CABG 2010 Abdominal pain food related suspected mesenteric ischemia plan for CTA later this month from [place] Subjective Date/time seen: 08/23/22 12:17 Interval history: HPI:This is a 66-year-old male with coronary artery disease status post coronary artery bypass grafting, hypertension, hyperlipidemia, and type 2 diabetes mellitus who presented to the emergency department for evaluation of chest pain that has been intermittent over the last few weeks. He describes a burning like discomfort in the mid sternum which at times radiates up into the left jaw, arm, and shoulder. It seems to occur more so when he is lying down in bed however he has noticed it with exertion as well. At times he feels a bit lightheaded when it occurs but not every time. Nitroglycerin given in the emergency department seemed to help the discomfort and it has not returned. He denies associated shortness of breath, nausea, and vomiting. Initial troponin was elevated 0.230 and his 3 and 6 hour troponins have remained pretty flat. EKG today shows some inferior wall T-wave inversions not noticed on previous tracings and he is being admitted in this setting for Cardiology consultation and further monitoring. With further questioning he reports that he has been having ?stomach problems? for quite sometimes and in fact he had an upper endoscopy done just last Thursday at the [facility] at which time they found ?evidence of ischemia? and he was started on sucralfate in addition to omeprazole which has beneficial. At the time my evaluation he has no active discomfort. 08/23/2022 no overnight events. No fever chills. No shortness of breath. No further chest pain Review of Systems Review of Systems: All systems reviewed & are unremarkable except as noted in HPI and below Exam Narrative: General: Well-developed male sitting up in bed no distress. HEENT: PERRL, EOMI. Sclera anicteric. Oral mucosa moist. Oropharynx clear. Neck: Supple. No carotid bruits. Respiratory: Lungs are clear to auscultation bilateral
[2022-08-23 12:20] LABS: Glucose Point of Care 115 mg/dl (65-105)
[2022-08-23 17:23] LABS: Glucose Point of Care 150 mg/dl (65-105)
[2022-08-23 20:44] LABS: Glucose Point of Care 133 mg/dl (65-105)
[2022-08-24] VITALS (19 sets, daily range): BP systolic 105–143; BP diastolic 57–70; PULSE 64–87; RESP 12–24; TEMP 36.3–37; O2SAT 98–100
[2022-08-24] MEDS: NITROGLYCERIN SL 0.4 MG TABLET SUBLINGUAL (04:16)
[2022-08-24] MEDS: ACETAMINOPHEN 325 MG TABLET 650 MG PO (04:31)
[2022-08-24 08:24] LABS: Glucose Point of Care 128 mg/dl (65-105)
[2022-08-24] MEDS: polyethylene glycoL 3350 17 GM POWD.PACK PO (08:44)
[2022-08-24] MEDS: SUCRALFATE SUSP 100 MG/ML 10 ML UDC 500 MG PO ×2 (08:44→17:19)
[2022-08-24] MEDS: lisinopriL 10 MG TABLET PO (08:46)
[2022-08-24] MEDS: ASPIRIN 81 MG CHEWABLE TABLET PO (08:46)
[2022-08-24] MEDS: MULTIVITAMINS /C LUTEIN (CENTRUM SILVER) TABLET *BKC 1 TAB PO (08:46)
[2022-08-24] MEDS: PANTOPRAZOLE 40 MG TABLET PO (08:47)
[2022-08-24] MEDS: METOPROLOL TARTRATE 50 MG TAB PO ×2 (08:47→20:35)
[2022-08-24] MEDS: ATORVASTATIN 40 MG TABLET 80 MG PO (08:47)
[2022-08-24] MEDS: CLOPIDOGREL BISULFATE 75 MG TABLET PO (08:47)
[2022-08-24] MEDS: EMPAGLIFLOZIN 25 MG TABLET PO (08:47)
--- NOTE | 2022-08-24 08:53 | PM.PNCARD ---
Progress Note: A&P Assessment and Plan (1) Acute coronary syndrome with high troponin: Code(s): I24.9 - Acute ischemic heart disease, unspecified Status: Acute Plan 66-year-old man with known multivessel coronary disease status post surgical revascularization as detailed in my note. He now presents with acute coronary syndrome and plans are for follow-up angiography tomorrow morning and further recommendations of course will be determined based on those findings Jose D Harris MD [facility] Subjective Date/time seen: Date of service: 08/24/22 08:53 Interval history: Follow-up visit in this 66-year-old man with coronary artery disease surgical revascularization 12 years ago as detailed in my note. He presents now with acute coronary syndrome. Plans are for follow-up angiography on Thursday morning. 08/24/2022: Patient feels well this morning. He was given a nitroglycerin overnight for some chest pain with relief. No questions regarding plans for coronary angiography and graft angiography tomorrow morning. Exam Const: General: comfortable and no acute distress Other: Pleasant overweight white male no apparent distress HENMT: Mouth: Yes moist mucous membranes Eyes: Sclera: sclerae normal Pupils: Equal, round and reactive pupils present Neck: Neck: supple and no JVD Other: Carotid pulses are unremarkable and without bruits Resp: Effort & Inspection: normal respiratory effort Auscultation: clear to auscultation bilaterally Cardio: Rate: regular rate Rhythm: regular rhythm Other: PMI difficult to palpate no murmur no gallop GI: Auscultation: normal bowel sounds Skin: General skin exam: normal color Neuro: Cranial nerves: Yes Equal, round and reactive pupils present Other: Alert and oriented x3 Extrem: Other: No edema, very good distal perfusion Objective Data Vital Signs Vital Signs: Vital Signs - 24 hr 08/23/22 09:03 08/23/22 10:00 08/23/22 12:00 Temperature 36.6 C Pulse Rate 76 69 Respiratory Rate 14 Blood Pressure 126/66 Pulse Oximetry 99 99 Oxygen Delivery Room Air 08/23/22 12:00 08/23/22 12:00 08/23/22 14:00 Temperature Pulse Rate 71 71 Respiratory Rate Blood Pressure Pulse Oximetry Oxygen Delivery Room Air 08/23/22 16:00 08/23/22 16:00 08/23/22 16:00 Temperature 36.6 C Pulse Rate 72 70 Respiratory Rate 22 H Blood Pressure 108/58 L Pulse Oximetry 100 Oxygen Delivery Room Air 08/23/22 18:00 08/23/22 20:23 08/23/22 20:00 Temperature 36.1 C L Pulse Rate 78 73 73 Respiratory Rate 20 Blood Pressure 102/56 L Pulse Oximetry 100 Oxygen Delivery 08/23/22 23:16 08/23/22 20:00 08/23/22 22:00 Temperature 36.5 C Pulse Rate 71 70 74 Respiratory Rate 20 Blood Pressure 117/59 L Pulse Oximetry 99 Oxygen Delivery 08/23/22 20:00 08/24/22 00:00 08/24/22 02:00 Temperature Pulse Rate 64 73 Respiratory Rate Blood Pressure Pulse Oximetry Oxygen Delivery Room Air 08/24/22 03:56 08/24/22 04:36 08/24/22 00:00 Temperature 36.3 C L Pulse Rate 86 85 Respiratory Rate 16 18 Blood Pressure 141/70 H 105/59 L Pulse Oximetry 100 99 Oxygen Delivery Room Air 08/24/22 04:00 08/24/22 04:00 08/24/22 06:00 Temperature Pulse Rate 80 77 Respiratory Rate Blood Pressure Pulse Oximetry Oxygen Delivery Room Air 08/24/22 08:00 08/24/22 08:47 Temperature 36.7 C Pulse Rate 76 74 Respiratory Rate 12 Blood Pressure 136/60 Pulse Oximetry 99 Oxygen Delivery Intake/Output Intake/Output: Intake & Output 08/21/22 08/22/22 08/23/22 08/24/22 23:59 23:59 23:59 23:59 Intake Total 1190 1970 350 Output Total 1200 Balance 1190 770 350 Meds/Results Medications: Active Medications Generic Name Dose Route Start Last Admin Trade Name Freq PRN Reason Stop Dose Admin Acetaminophen 650 mg 08/23/22 08:15 08/24/22 04:31 Acetaminophen 325 M
[2022-08-24 12:25] LABS: Glucose Point of Care 133 mg/dl (65-105)
--- NOTE | 2022-08-24 13:51 | PM.IMPN ---
Progress Note: A&P Assessment and Plan (1) Acute coronary syndrome with high troponin: Code(s): I24.9 - Acute ischemic heart disease, unspecified Status: Acute Assessment and Plan: His story is a bit atypical for cardiac pain and initially it seemed as though his discomfort was probably secondary to a GI etiology given reports of an abnormal upper endoscopy done just last week at the [place]. his EKG however shows new inferior T-wave inversions and in the setting of a modestly elevated but flat troponin, Dr. Harris recommends cardiac catheterization. He has been loaded with clopidogrel and we will continue aspirin, statin, beta-nusrat, and AKBAR-inhibitor. Continue omeprazole and sucralfate. Catheterization in a.m. (2) Coronary artery disease: Code(s): I25.10 - Atherosclerotic heart disease of [place] coronary artery without angina pectoris Status: Acute Assessment and Plan: Plan is as detailed above. (3) Type 2 diabetes mellitus: Code(s): E11.9 - Type 2 diabetes mellitus without complications Status: Acute Assessment and Plan: Continue semaglutide. On . Hold metformin in anticipation of cardiac catheterization on Thursday. Initiate sliding scale insulin, Accu-Cheks, and hypoglycemic protocol. (4) Obstructive sleep apnea: Code(s): G47.33 - Obstructive sleep apnea (adult) (pediatric) Status: Acute Assessment and Plan: He has not used a CPAP for a couple of years since his weight loss. (5) Hyperlipidemia: Code(s): E78.5 - Hyperlipidemia, unspecified Status: Acute Assessment and Plan: Continue statin; LFTs within normal limits (6) Hypertension: Code(s): I10 - Essential (primary) hypertension Status: Acute Assessment and Plan: Blood pressures are stable and well controlled. Continue antihypertensives and monitor. Plan Coronary artery disease status post CABG 2010 Abdominal pain food related suspected mesenteric ischemia plan for CTA later this month from [place] Subjective Date/time seen: 08/24/22 13:51 Interval history: HPI:This is a 66-year-old male with coronary artery disease status post coronary artery bypass grafting, hypertension, hyperlipidemia, and type 2 diabetes mellitus who presented to the emergency department for evaluation of chest pain that has been intermittent over the last few weeks. He describes a burning like discomfort in the mid sternum which at times radiates up into the left jaw, arm, and shoulder. It seems to occur more so when he is lying down in bed however he has noticed it with exertion as well. At times he feels a bit lightheaded when it occurs but not every time. Nitroglycerin given in the emergency department seemed to help the discomfort and it has not returned. He denies associated shortness of breath, nausea, and vomiting. Initial troponin was elevated 0.230 and his 3 and 6 hour troponins have remained pretty flat. EKG today shows some inferior wall T-wave inversions not noticed on previous tracings and he is being admitted in this setting for Cardiology consultation and further monitoring. With further questioning he reports that he has been having ?stomach problems? for quite sometimes and in fact he had an upper endoscopy done just last Thursday at the [facility] at which time they found ?evidence of ischemia? and he was started on sucralfate in addition to omeprazole which has beneficial. At the time my evaluation he has no active discomfort. 08/23/2022 no overnight events.? No fever chills.? No shortness of breath.? No further chest pain 08/24/2022 overnight he had mild chest pain when he walked to the bathroom received a nitro which relieved the pain. Feeling okay today Review of Systems Review of Systems: All systems reviewed & are unremarkable except as noted in HPI and below Exam Narrative: General: Well-developed male sitting up in bed no distress. SULY
[2022-08-24 17:15] LABS: Glucose Point of Care 108 mg/dl (65-105)
[2022-08-24 19:47] LABS: Glucose Point of Care 133 mg/dl (65-105)
[2022-08-24 22:53] LABS: Glucose Point of Care 112 mg/dl (65-105)
[2022-08-25] VITALS (33 sets, daily range): BP systolic 98–130; BP diastolic 60–102; PULSE 66–88; RESP 12–19; TEMP 36.1–36.9; O2SAT 94–100; BMI 34.3
[2022-08-25 04:20] LABS: Glucose Point of Care 135 mg/dl (65-105)
[2022-08-25 04:36] LABS: Hematocrit 40.7 % (42.0-52.0); Hemoglobin 13.4 g/dL (14.0-18.0); Mean Corpuscular HGB Conc 32.9 g/dl (32-36); Mean Corpuscular Hemoglobin 30.2 pg (26-34); Mean Corpuscular Volume 91.7 fl (80-100); Mean Platelet Volume 8.9 fl (7.4-10.4); Platelet Count Result 248 k/mm3 (150-375); Red Blood Count 4.44 M/mm3 (4.6-6.20); Red Cell Distribution Width 13.2 % (11.5-14.5); White Blood Count 7.4 K/mm3 (4.5-10.0)
[2022-08-25 04:54] LABS: Anion Gap 11 mmol/L (8-16); Blood Urea Nitrogen 13 mg/dL (9-20); Calcium 8.6 mg/dL (8.4-10.2); Carbon Dioxide 26 mmol/L (22-30); Chloride 104 mmol/L (98-107); Estimated CRCL calculation 112 ml/min; Estimated Glomerular Filt Rate > 60; Glucose 125 mg/dL (65-110); Magnesium 2.1 mg/dL (1.6-2.3); Potassium 3.7 mmol/L (3.4-5.0); Sodium 141 mmol/L (137-145)
[2022-08-25] MEDS: PANTOPRAZOLE 40 MG TABLET PO (08:08)
[2022-08-25] MEDS: lisinopriL 10 MG TABLET PO (08:08)
[2022-08-25] MEDS: METOPROLOL TARTRATE 50 MG TAB PO ×2 (08:08→21:12)
[2022-08-25] MEDS: ASPIRIN 81 MG CHEWABLE TABLET PO (08:08)
[2022-08-25] MEDS: CLOPIDOGREL BISULFATE 75 MG TABLET PO (08:08)
--- NOTE | 2022-08-25 08:27 | PC.NURSE ---
Pt to labor and delivery nurse for cardiac catheterization via bed. at bedside
--- NOTE | 2022-08-25 08:46 | WPDMODSED ---
Moderate Sedation Note-Pt Data Patient Data Diagnosis: Acute coronary syndrome Present Complaint: intermittent chest pain Procedure to be performed/Plan: left heart catheterization with anvik coronary and bypass graft angiography Allergies Allergy/AdvReac Type Severity Reaction Status Date / Time No Known Allergies Allergy Verified 06/15/22 00:50 Home Medications Medication Instructions Recorded Confirmed Type aspirin 81 mg tablet 81 mg PO DAILY 02/05/21 08/22/22 History atorvastatin 80 mg tablet 80 mg PO HS 02/05/21 08/22/22 History empagliflozin 25 mg tablet 25 mg PO DAILY 02/05/21 08/22/22 History lisinopril 20 mg tablet 10 mg PO DAILY 02/05/21 08/22/22 History metformin 1,000 mg tablet 1,000 mg TID 02/05/21 08/22/22 History metoprolol tartrate 100 mg tablet 50 mg PO Q12H 02/05/21 08/22/22 History multivit with minerals-iron 18 1 tablet PO DAILY 02/05/21 08/22/22 History mg-folic ac 400 mcg-vit K 25 mcg tablet (Adults Multivitamin) omeprazole 20 mg capsule,delayed 20 mg PO DAILY 02/05/21 08/22/22 History release acetaminophen 500 mg tablet 1,000 mg PO QID PRN Pain 08/22/22 08/22/22 History polyethylene glycol 3350 17 17 g PO DAILY 08/22/22 08/22/22 History gram/dose oral powder semaglutide 1 mg/dose (4 mg/3 mL) 1 mg subcut WEEKLY 08/22/22 08/22/22 History subcutaneous pen injector sucralfate 100 mg/mL oral 5 ml PO TID 08/22/22 08/22/22 History suspension Current Medications: Active Medications Acetaminophen (Acetaminophen 325 Mg Tablet) 650 mg PO Q6H PRN PRN Reason: Mild Pain (1-3) or Fever Last Admin: 08/24/22 04:31 Dose: 650 mg Aspirin (Aspirin 81 Mg Chewable Tablet) 81 mg PO DAILY [facility] Last Admin: 08/25/22 08:08 Dose: 81 mg Atorvastatin Calcium (Atorvastatin 40 Mg Tablet) 80 mg PO DAILY [facility] Last Admin: 08/24/22 08:47 Dose: 80 mg Clopidogrel Bisulfate (Clopidogrel Bisulfate 75 Mg Tablet) [facility] [place] Admin: 08/25/22 08:08 Dose: 75 mg Empagliflozin (Empagliflozin 25 Mg Tablet) 25 mg PO DAILY [facility] Last Admin: 08/24/22 08:47 Dose: 25 mg Home Med (Home Medication (Semaglutide 1 Mg/Dose (4 Mg/3 Ml) Pen Injector)) 1 each SUB-Q WEEKLY [facility] Stop: 09/22/22 10:59 Last Admin: 08/23/22 12:35 Dose: 1 each Sodium Chloride (Normal Saline Iv) 500 mls @ 100 mls/hr IV CONT .Q5H [facility] Lisinopril (Lisinopril 10 Mg Tablet) 10 mg PO DAILY [facility] Last Admin: 08/25/22 08:08 Dose: 10 mg Metoprolol Tartrate (Metoprolol Tartrate 50 Mg Tab) 50 mg PO Q12HR [facility] Last Admin: 08/25/22 08:08 Dose: 50 mg Multivitamins/Minerals (Multivitamins /C Lutein (Centrum Silver) Tablet *Bkc) 1 tab PO DAILY [facility] Last Admin: 08/24/22 08:46 Dose: 1 tab Nitroglycerin (Nitroglycerin Sl 0.4 Mg Tablet) 0.4 mg SUBLINGUAL Q5MIN PRN PRN Reason: Chest Pain Last Admin: 08/24/22 04:16 Dose: 0.4 mg Ondansetron HCl (Ondansetron Inj 4 Mg/2 Ml Vial) 4 mg IV PUSH Q4H PRN PRN Reason: Nausea Pantoprazole Sodium (Pantoprazole 40 Mg Tablet) 40 mg PO QAM [facility] Last Admin: 08/25/22 08:08 Dose: 40 mg Polyethylene Glycol (Polyethylene Glycol 3350 17 Gm Powd.Pack) 17 gm PO DAILY [facility] Last Admin: 08/24/22 08:44 Dose: 17 gm Sucralfate (Sucralfate Susp 100 Mg/Ml 10 Ml Udc) 500 mg PO TID [facility] Last Admin: 08/24/22 17:19 Dose: 500 mg Sedation/Anesthesia: No previous sedation/anesthesia problems (including family history). [facility] Past Medical History Medical History Coronary artery disease Diverticulitis Hyperlipidemia Hypertension Obstructive sleep apnea Skin cancer Type 2 diabetes mellitus Surgical History Surgical History History of cardiac catheterization History of colonoscopy with polypectomy History of coronary artery bypass graft (12/2010) Family History Family History Father Family history of
--- NOTE | 2022-08-25 09:31 | WPDCARDPROC ---
Cardiac Cath Procedure Note Date of procedure:: 08/25/22 Performing physician:: Jose D Harris MD Indication:: Acute coronary syndrome Brief clinical history:: this is a 66-year-old man known to have multivessel coronary disease having undergone bypass grafting 11 years ago for treatment of left main and severe right coronary disease. He has done well and has been followed elsewhere. He presented to this hospital with the recent onset of ischemic chest pain and mild elevation of troponin. ECG shows new inferior T-wave inversions. Procedure Procedure performed:: Left ventriculogram coronary angiogram vein graft angiogram internal mammary graft angiogram Sedation/Medication given:: fentanyl 50 mg Versed 2 mg case start time 8:56 a.m. case end time 9:26 a.m. sedation provided by Lori Raygoza RN, trained observer Access site:: right femoral artery Estimated blood loss:: 25 cc Procedure note:: patient was brought to the cardiac catheterization lab in the postabsorptive state where the right femoral triangle was prepared and draped in the normal fashion. Anesthesia was provided with 1% lidocaine infiltrated locally. Using the modified Seldinger technique the right femoral artery was punctured and a 5 Mexican vascular sheath was placed. After this left ventriculography was performed using a 5 Mexican angled pigtail catheter. The central hemodynamics and pullback pressures across the aortic valve were also recorded. Following this a 5 Mexican FL 3.5 catheter was used to engage and inject the left coronary artery. After this a 5 [place] JR4 catheter was used with a engage and inject the [place] right coronary artery, the vein graft to the RCA, the vein graft to the circumflex as well as the left internal mammary graft. The cineangiograms were then reviewed in detail and the case was terminated. Patient was brought to the holding area for sheath removal and post cath recovery. There were no procedural complications he left the lab nurse with no evidence of a groin hematoma. Findings:: Hemodynamics: Central aortic pressure 122 over 56 left ventricle 122/0 end-diastolic pressure 12 there is gradient pullback across the aortic valve. Left ventricle: In the DEL REAL projection the LV is normal in size all segments contract appropriately the global ejection fraction is 50-55% by visual estimation. There is catheter-induced mitral valve regurgitation as the pigtail catheter was involved in the mitral valve chordae. The left main coronary artery is small in caliber there is 95-99% ostial stenosis and then diffuse 70% stenosis after that. The left anterior descending is a small caliber diffusely diseased artery. There is a small septal perforating branch and Oliver small to medium size diagonal branch proximally that are free of significant stenosis. After the diagonal branch the LAD is 100% occluded the circumflex is a very small diffusely diseased vessel. There are couple of tiny proximal marginal branches which receive antegrade filling the remainder of the circumflex is 100% closed right coronary artery is medium in caliber and diffusely diseased as well as being dominant to the posterior circulation. There is proximal right coronary disease of 80-90% which did dampen with the right coronary catheter. Upon withdrawal of the catheter to the ostium the dampening was no longer seen. The 2nd portion of the right coronary has a long 95-99% stenosis. The RPDA has a proximal 80% lesion. The RPL branches are medium in size and free of significant lesions. Saphenous vein graft to the right coronary artery is 100% occluded in its shaft. saphenous vein graft to the circumflex is a large caliber segment of saphenous vein which is anastomosed to a more distal OM branch. It fills that branch the remainder of the distal circumflex nicely. Left internal mammary graft to the LAD is a small to medium caliber internal mamma
[2022-08-25] MEDS: SODIUM CHLORIDE 0.9% IV 1,000 ML 125 ML IV CONT (11:30)
--- NOTE | 2022-08-25 11:39 | PC.NURSE ---
Pt returned from dental laboratory technician via bed. No issues noted, at bedside
[2022-08-25] MEDS: ATORVASTATIN 40 MG TABLET 80 MG PO (12:09)
[2022-08-25] MEDS: polyethylene glycoL 3350 17 GM POWD.PACK PO (12:09)
[2022-08-25] MEDS: MULTIVITAMINS /C LUTEIN (CENTRUM SILVER) TABLET *BKC 1 TAB PO (12:09)
[2022-08-25] MEDS: EMPAGLIFLOZIN 25 MG TABLET PO (12:10)
[2022-08-25] MEDS: SUCRALFATE SUSP 100 MG/ML 10 ML UDC 500 MG PO ×2 (12:10→17:24)
--- NOTE | 2022-08-25 14:05 | PCNSR ---
On 08/25/22, the student,Patricio Mayes, provided care and [facility]. I have reviewed the student's documentation and agree with the findings.
--- NOTE | 2022-08-25 17:05 | PM.IMPN ---
Progress Note: A&P Assessment and Plan (1) Acute coronary syndrome with high troponin: Code(s): I24.9 - Acute ischemic heart disease, unspecified Status: Acute Assessment and Plan: His story is a bit atypical for cardiac pain and initially it seemed as though his discomfort was probably secondary to a GI etiology given reports of an abnormal upper endoscopy done just last week at the [facility]. his EKG however shows new inferior T-wave inversions and in the setting of a modestly elevated but flat troponin, Dr. Harris recommends cardiac catheterization. He has been loaded with clopidogrel and we will continue aspirin, statin, beta-nusrat, and AKBAR-inhibitor. Continue omeprazole and sucralfate. Cardiac catheterization 08/25/2022: 1.? ? Three-vessel coronary artery disease with right coronary dominant circulation. 2.? ? High-grade ostial left main disease followed by moderate disease in the shaft of the left main 3. ? occlusion of the LAD after small septal and diagonal branch take the origin.? Lad is a small diffusely diseased vessel as well 4. ? occlusion of the circumflex after 2 very tiny OM branches arise 5. ? severe disease in the right coronary including proximal stenosis 80-90%, subtotal long area of stenosis in the 2nd portion of the artery and 80% stenosis in the 1st portion of the PDA. 6.? ? Occlusion of the saphenous vein graft to the RPDA 7. ? patent saphenous vein graft to the circumflex distal to the occlusion 8. ? NUÑEZ graft to the LAD which is patent there is a high-grade 90% distal anastomotic lesion. Await further recommendations Cardiology (2) Coronary artery disease: Code(s): I25.10 - Atherosclerotic heart disease of [place] coronary artery without angina pectoris Status: Acute Assessment and Plan: Plan is as detailed above. (3) Type 2 diabetes mellitus: Code(s): E11.9 - Type 2 diabetes mellitus without complications Status: Acute Assessment and Plan: Continue semaglutide. On . Hold metformin in anticipation of cardiac catheterization on Thursday. Initiate sliding scale insulin, Accu-Cheks, and hypoglycemic protocol. (4) Obstructive sleep apnea: Code(s): G47.33 - Obstructive sleep apnea (adult) (pediatric) Status: Acute Assessment and Plan: He has not used a CPAP for a couple of years since his weight loss. (5) Hyperlipidemia: Code(s): E78.5 - Hyperlipidemia, unspecified Status: Acute Assessment and Plan: Continue statin; LFTs within normal limits (6) Hypertension: Code(s): I10 - Essential (primary) hypertension Status: Acute Assessment and Plan: Blood pressures are stable and well controlled. Continue antihypertensives and monitor. Plan Coronary artery disease status post CABG 2010 Abdominal pain food related suspected mesenteric ischemia [facility] Subjective Date/time seen: 08/25/22 17:05 Interval history: HPI:This is a 66-year-old male with coronary artery disease status post coronary artery bypass grafting, hypertension, hyperlipidemia, and type 2 diabetes mellitus who presented to the emergency department for evaluation of chest pain that has been intermittent over the last few weeks. He describes a burning like discomfort in the mid sternum which at times radiates up into the left jaw, arm, and shoulder. It seems to occur more so when he is lying down in bed however he has noticed it with exertion as well. At times he feels a bit lightheaded when it occurs but not every time. Nitroglycerin given in the emergency department seemed to help the discomfort and it has not returned. He denies associated shortness of breath, nausea, and vomiting. Initial troponin was elevated 0.230 and his 3 and 6 hour troponins have remained pretty flat. EKG today shows some inferior wall T-wave inversions not noticed on previous tracings and he is being admitted
[2022-08-25 19:50] LABS: Glucose Point of Care 134 mg/dl (65-105)
[2022-08-25] MEDS: ACETAMINOPHEN 325 MG TABLET 650 MG PO (21:11)
[2022-08-26] VITALS (10 sets, daily range): BP systolic 100–111; BP diastolic 47–68; PULSE 69–86; RESP 12–17; TEMP 36.4–36.8; O2SAT 98–100
[2022-08-26 05:00] LABS: Basophils Percent Auto 0.6 % (0.2-1.2); Eosinophils Absolute Auto 0.3 K/mm3 (0-0.3); Eosinophils Percent Auto 3.9 % (0-4.4); Hematocrit 38.2 % (42.0-52.0); Hemoglobin 12.8 g/dL (14.0-18.0); Immature Granulocyte Absolute 0.01 K/mm3 (0.00-0.031); Immature Granulocyte Percent A 0.1 % (0-0.5); Lymphocytes Absolute Auto 2.84 K/mm3 (0.9-3.2); Lymphocytes Percent Auto 42.5 % (18.3-44.2); Mean Corpuscular HGB Conc 33.5 g/dl (32-36); Mean Corpuscular Hemoglobin 29.9 pg (26-34); Mean Corpuscular Volume 89.3 fl (80-100); Mean Platelet Volume 8.7 fl (7.4-10.4); Monocytes Absolute Auto 0.6 K/mm3 (0.1-0.6); Monocytes Percent Auto 9.6 % (2.6-8.5); Neutrophils Absolute Auto 2.9 K/mm3 (1.3-6.7); Neutrophils Percent Auto 43.3 % (45.5-73.1); Platelet Count Result 235 k/mm3 (150-375); Red Blood Count 4.28 M/mm3 (4.6-6.20); Red Cell Distribution Width 13.2 % (11.5-14.5); White Blood Count 6.7 K/mm3 (4.5-10.0)
[2022-08-26 05:20] LABS: Alanine Aminotransferase 24 U/L (6-50); Albumin Level 3.4 g/dL (3.5-5.1); Alkaline Phosphatase 52 U/L (38-126); Anion Gap 5 mmol/L (8-16); Aspartate Amino Transferase 26 U/L (17-59); Bilirubin,Total 0.7 mg/dL (0.2-1.3); Blood Urea Nitrogen 15 mg/dL (9-20); Calcium 8.6 mg/dL (8.4-10.2); Carbon Dioxide 25 mmol/L (22-30); Chloride 107 mmol/L (98-107); Estimated CRCL calculation 99 ml/min; Estimated Glomerular Filt Rate > 60; Glucose 109 mg/dL (65-110); Magnesium 2.1 mg/dL (1.6-2.3); Potassium 3.9 mmol/L (3.4-5.0); Sodium 137 mmol/L (137-145)
[2022-08-26] MEDS: ATORVASTATIN 40 MG TABLET 80 MG PO (08:13)
[2022-08-26] MEDS: ASPIRIN 81 MG CHEWABLE TABLET PO (08:13)
[2022-08-26] MEDS: polyethylene glycoL 3350 17 GM POWD.PACK PO (08:13)
[2022-08-26] MEDS: lisinopriL 10 MG TABLET PO (08:14)
[2022-08-26] MEDS: PANTOPRAZOLE 40 MG TABLET PO (08:14)
[2022-08-26] MEDS: EMPAGLIFLOZIN 25 MG TABLET PO (08:14)
[2022-08-26] MEDS: METOPROLOL TARTRATE 50 MG TAB PO (08:14)
[2022-08-26] MEDS: SUCRALFATE SUSP 100 MG/ML 10 ML UDC 500 MG PO (08:14)
[2022-08-26] MEDS: MULTIVITAMINS /C LUTEIN (CENTRUM SILVER) TABLET *BKC 1 TAB PO (08:14)
[2022-08-26] MEDS: CLOPIDOGREL BISULFATE 75 MG TABLET PO (08:14)
--- NOTE | 2022-08-26 11:05 | PM.PNCARD ---
Progress Note: A&P Assessment and Plan (1) Coronary artery disease: Code(s): I25.10 - Atherosclerotic heart disease of [place] coronary artery without angina pectoris Status: Acute Assessment and Plan: S/p coronary angiogram yesterday with results as below: 1. Three-vessel coronary artery disease with right coronary dominant circulation. 2. High-grade ostial left main disease followed by moderate disease in the shaft of the left main 3. occlusion of the LAD after small septal and diagonal branch take the origin. Lad is a small diffusely diseased vessel as well 4. occlusion of the circumflex after 2 very tiny OM branches arise 5. severe disease in the right coronary including proximal stenosis 80-90%, subtotal long area of stenosis in the 2nd portion of the artery and 80% stenosis in the 1st portion of the PDA. 6. Occlusion of the saphenous vein graft to the RPDA 7. patent saphenous vein graft to the circumflex distal to the occlusion 8. NUÑEZ graft to the LAD which is patent there is a high-grade 90% distal anastomotic lesion. He has been referred to Dr. García at [facility] for high risk PCI. Films have been reviewed by Dr. García and his office will contact patient to arrange this procedure. No chest pain at this time. He is stable from a cardiac standpoint and can be discharged home today. Continue DAPT with ASA, plavix. Subjective Date/time seen: 08/26/22 11:05 Interval history: Follow-up visit in this 66-year-old man with coronary artery disease surgical revascularization 12 years ago as detailed in my note. He presents now with acute coronary syndrome. Plans are for follow-up angiography on Thursday morning. 08/24/2022: Patient feels well this morning. He was given a nitroglycerin overnight for some chest pain with relief. No questions regarding plans for coronary angiography and graft angiography tomorrow morning. 08/26/2022: Feeling well this morning. Has been up walking the halls and did not have any chest pain or shortness of breath with this. No complaints this morning. Review of Systems Constitutional: Constitutional: Reports no additional constitutional complaints Eyes: Eyes: Reports no additional eye complaints ENT: Reports system reviewed and no additional complaints, except as documented Cardiovascular: Cardiovascular: Reports as per HPI Respiratory: Respiratory: Reports no additional respiratory complaints Gastrointestinal: Gastrointestinal: Reports abdominal pain Musculoskeletal: Musculoskeletal: Reports no additional musculoskeletal complaints Integumentary/Breasts: Skin/Breast: Reports system reviewed and no additional complaints, except as docu Neurologic: Reports system reviewed and no additional complaints, except as documented Endocrine: Endocrine: Reports no additional endocrine complaints Hematologic/Lymphatic: Hematologic/Lymphatic: Reports no additional hematologic/lymphatic complaints Allergic/Immunologic: Allergic/Immunologic: Reports no additional allergic/immunologic complaints Exam Const: General: comfortable and no acute distress Other: Pleasant overweight white male no apparent distress HENMT: Mouth: Yes moist mucous membranes Eyes: Sclera: sclerae normal Pupils: Equal, round and reactive pupils present Neck: Neck: supple and no JVD Other: Carotid pulses are unremarkable and without bruits Resp: Effort & Inspection: normal respiratory effort Auscultation: clear to auscultation bilaterally Cardio: Rate: regular rate Rhythm: regular rhythm Heart sounds: S1 normal heart sound present, S2 normal heart sound present, no gallops and no murmurs GI: Auscultation: normal bowel sounds Skin: General skin exam: normal color Other: R groin arterial insertion site free from bleeding, hematoma, pain, bruit. Neuro: Cranial nerves: Yes Equal, round and reactive pupils present Other: Alert and oriented x3 Extrem: Other: No edema, very good dis
--- NOTE | 2022-08-26 11:54 | PM.DS ---
DS: Admitting Diagnosis Discharge Date 08/26/2022 Admitting Diagnosis chest pain DS: Discharge Diagnosis Discharge Diagnosis (1) Acute coronary syndrome with high troponin: Code(s): I24.9 - Acute ischemic heart disease, unspecified Status: Acute (2) Coronary artery disease: Code(s): I25.10 - Atherosclerotic heart disease of [place] coronary artery without angina pectoris Status: Acute (3) Type 2 diabetes mellitus: Code(s): E11.9 - Type 2 diabetes mellitus without complications Status: Acute (4) Obstructive sleep apnea: Code(s): G47.33 - Obstructive sleep apnea (adult) (pediatric) Status: Acute (5) Hyperlipidemia: Code(s): E78.5 - Hyperlipidemia, unspecified Status: Acute (6) Hypertension: Code(s): I10 - Essential (primary) hypertension Status: Acute DS: Summary Hospital Course Hospital Course: # Acute coronary syndrome with high troponin: ? ? His story is a bit atypical for cardiac pain and initially it seemed as though his discomfort was probably secondary to a GI etiology given reports of an abnormal upper endoscopy done just last week at the [facility]. his EKG however shows new inferior T-wave inversions and in the setting of a modestly elevated but flat troponin, Dr. Harris recommends cardiac catheterization. He has been loaded with clopidogrel and he is continued on aspirin, statin, beta-nusrat, and AKBAR-inhibitor. Continue omeprazole and sucralfate. ? Cardiac catheterization 08/25/2022: 1.? ? Three-vessel coronary artery disease with right coronary dominant circulation. 2.? ? High-grade ostial left main disease followed by moderate disease in the shaft of the left main 3. ? occlusion of the LAD after small septal and diagonal branch take the origin.? Lad is a small diffusely diseased vessel as well 4. ? occlusion of the circumflex after 2 very tiny OM branches arise 5. ? severe disease in the right coronary including proximal stenosis 80-90%, subtotal long area of stenosis in the 2nd portion of the artery and 80% stenosis in the 1st portion of the PDA. 6.? ? Occlusion of the saphenous vein graft to the RPDA 7. ? patent saphenous vein graft to the circumflex distal to the occlusion 8. ? NUÑEZ graft to the LAD which is patent there is a high-grade 90% distal anastomotic lesion. He is recommended for high risk PCI which can only be done at higher facility [facility]. He was discussed with Dr. García at [facility] who has reviewed his films and will contact patient to arrange for this procedure to be done at his facility # coronary artery disease status post CABG 12 years ago # type 2 diabetes mellitus: Continue semaglutide.? On Jardiance.? Also on metformin at home # obstructive sleep apnea: He has not used a CPAP for a couple of years since his weight loss. # hyperlipidemia: Continue statin; LFTs within normal limits # hypertension: Blood pressures are stable and well controlled. Continue antihypertensives and monitor. # abdominal pain: Food related Suspected mesenteric ischemia with the EGD finding of diffuse ulceration [facility] on this Stay on sucralfate as ordered with PPI and small frequent meals Time Spent with Patient Time attestation: Total time spent providing and/or coordinating discharge services: 35 minutes Exam Narrative: General: Well-developed male sitting up in bed no distress. HEENT: PERRL, EOMI. Sclera anicteric. Oral mucosa moist. Oropharynx clear. Neck: Supple. No carotid bruits. Respiratory: Lungs are clear to auscultation bilaterally. Cardiovascular: Regular rate and rhythm with S1-S2. Gastrointestinal: Abdomen is soft, nontender, and nondistended with positive bowel sounds. Skin: Warm and dry. No rash or lesions on limited exam. Extremities: No cyanosis, clubbing, or edema. Radial and pedal pulses intact. Neuro
--- NOTE | 2022-08-26 12:24 | PC.NURSE ---
Card[facility] Re[facility] Services flyer was given to patient.
== END 2022-08-26 12:34 | disposition home or self-care (01) | DRG 287 ==
LOC: ANHED 12:45 → ANHIMU 15:00
PROVIDERS: Emergency Medicine; Internal Medicine; Specialist; Admitting Provider Chiropractor; Emergency Provider General Practice; Visit Provider Internal Medicine
PROC: 4A023N7 Measurement of Cardiac Sampling and Pressure, Left Heart, Percutaneous Approach (ICD-10-PCS; CPT 93459; principal; 2022-08-25 08:30)
DX: I24.9 Acute ischemic heart disease, unspecified (principal); I25.810 Atherosclerosis of coronary artery bypass graft(s) without angina pectoris; I25.10 Atherosclerotic heart disease of native coronary artery without angina pectoris; I10 Essential (primary) hypertension; E78.5 Hyperlipidemia, unspecified; E11.9 Type 2 diabetes mellitus without complications; G47.33 Obstructive sleep apnea (adult) (pediatric); Z20.822 Contact with and (suspected) exposure to COVID-19; Z95.1 Presence of aortocoronary bypass graft; Z86.010 Personal history of colon polyps; Z79.82 Long term (current) use of aspirin; Z87.891 Personal history of nicotine dependence; Z79.84 Long term (current) use of oral hypoglycemic drugs
CPT/HCPCS: 36415; 71046; 80048; 80053; 82948; 83690; 83735; 84484; 85025; 85027; 85610; 85730; 93005; 93459; 99285; A9270; C1887; C1894; C9803; J0461; J1644; J1650; J2250; J3010; J7030; J7040; U0003; U0005

== ENCOUNTER 2022-12-29 10:13 | Outpatient (CLI) | payer MEDICARE, OTHER, SELFPAY ==
[2022-12-29 11:07] LABS: Alanine Aminotransferase 17 U/L (6-50); Albumin Level 3.5 g/dL (3.5-5.1); Alkaline Phosphatase 58 U/L (38-126); Anion Gap 4 mmol/L (8-16); Aspartate Amino Transferase 21 U/L (17-59); Bilirubin,Total 0.5 mg/dL (0.2-1.3); Blood Urea Nitrogen 16 mg/dL (9-20); Calcium 8.3 mg/dL (8.4-10.2); Carbon Dioxide 26 mmol/L (22-30); Chloride 107 mmol/L (98-107); Cholesterol 145 mg/dL (0-200); Estimated Glomerular Filt Rate > 60; Glucose 100 mg/dL (65-110); HDL Direct 44 mg/dL; Potassium 4.5 mmol/L (3.4-5.0); Sodium 137 mmol/L (137-145); Triglycerides 96 mg/dL (<150)
[2022-12-29 11:19] LABS: LDL Cholesterol Direct 76 mg/dL
[2022-12-29 11:37] LABS: Prostate Specific Antigen 1.1 ng/mL (< OR = 4.0)
== END 2022-12-29 10:14 | disposition home or self-care (01) ==
PROVIDERS: PCP Internal Medicine; Visit Provider Nurse Practitioner
DX: Z12.5 Encounter for screening for malignant neoplasm of prostate (principal); E78.5 Hyperlipidemia, unspecified
CPT/HCPCS: 36415; 80053; 80061; 84153; G0103

== ENCOUNTER 2022-12-30 10:50 | Outpatient (CLI) | payer MEDICARE, OTHER, SELFPAY ==
--- NOTE | ~2022-12-30 | US_ITS ---
EXAMINATION: US carotid duplex BI DATE: 12/30/2022 11:38 INDICATION: Vascular signs and symptoms. TECHNIQUE: Grayscale, color Doppler, and pulsed Doppler images of the cervical carotid arteries were obtained. The degree of vessel stenosis is placed in one of the following categories: normal, <50%, 5 0-69%, >=70% but less than near-occlusion, near-occlusion, or total occlusion. Note that percent sten osis relative to normal distal artery lumen diameter is indirectly measured from velocity measurement s as described by Rey, et al. Radiology 2003; 229:340-346. Notes: Normal: Peak systolic velocity <125 centimeters/sec and no plaque <50%. Peak systolic velocity <125 ( EDV <40; ICA/CCA PSV ratio <2.0; used these factors only a tandem lesions or low cardiac output or co ntralateral disease) 50-69 %: PSV 125-230 (EDV 40-100; ratio 2-4) >= 70% but less than near occlusion: PSV greater than 230 (EDV > 100; ratio> 4.0) Near Occlusion: PSV that is variable; markedly narrowed lumen Occlusion: Absent flow on color/spectral Doppler and no lumen on garcía scale. COMPARISON: None. FINDINGS: RIGHT: The right common carotid artery (CCA) peak systolic velocity (PSV) is 129 cm/s. The right internal ca rotid artery (ICA) PSV is 185 cm/s. The right ICA end-diastolic velocity (EDV) is 50 cm/s. The right ICA/CCA PSV ratio is 1.4. The external carotid artery (ECA) PSV is 113 cm/s. There is antegrade flow in the right vertebral artery. LEFT: The left CCA PSV is 137 cm/s. The left ICA PSV is 192 cm/s. The left ICA EDV is 39 cm/s. The left ICA /CCA PSV ratio is 1.4. The ECA PSV is 152 cm/s. There is antegrade flow in the left vertebral artery . IMPRESSION: 1. 50-69% stenosis in the right internal carotid artery by sonographic criteria. 2. 50-69% stenosis in the left internal carotid artery by sonographic criteria. Reviewed, dictated and finalized at location [facility]. 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 50-69% stenosis in the right internal carotid artery by sonographic criteria . 2. 50-69% stenosis in the left internal carotid artery by sonographic criteria.
== END 2022-12-30 10:51 | disposition home or self-care (01) ==
PROVIDERS: PCP Internal Medicine; Visit Provider Nurse Practitioner
DX: R09.89 Other specified symptoms and signs involving the circulatory and respiratory systems (principal); I65.23 Occlusion and stenosis of bilateral carotid arteries
CPT/HCPCS: 93880

== ENCOUNTER 2023-02-19 08:45 | Outpatient (CLI) | payer MEDICARE, OTHER, SELFPAY ==
--- NOTE | ~2023-02-19 | CT_ITS ---
EXAMINATION: CTA neck DATE: 02/19/2023 09:18 INDICATION: Carotid stenosis. TECHNIQUE: Computed tomographic angiography (CTA) of the neck was performed with 100 mL Omnipaque-350 intravenous contrast. Automated exposure control and iterative reconstruction technique were employe d. The dose-length product was 573.72 mGy-cm. Maximum intensity projection 3D-reconstructions were cr eated by the technologist on a separate workstation. COMPARISON: Ultrasound 12/30/2022 FINDINGS: There are no pathologically enlarged lymph nodes. There is extensive dental disease. Left v ertebral artery is dominant. There is no significant stenosis of the vertebral arteries. There is abdiel que in the proximal internal carotid arteries. There is 18% stenosis of the proximal right internal c arotid artery relative to normal distal artery lumen diameter (NASCET criteria). There is 43% stenosi s of the proximal left internal carotid artery relative to normal distal artery lumen diameter. There is severe cervical spondylosis. IMPRESSION: 1. 18% stenosis of the proximal right internal carotid artery relative to normal distal artery lumen diameter (NASCET criteria). 2. 43% stenosis of the proximal left internal carotid artery relative to normal distal artery lumen d [facility]. Reviewed, dictated and finalized at location [facility]. IMPRESSION: 1. 18% stenosis of the proximal right internal carotid artery relative to marissa l distal artery lumen diameter (NASCET criteria). 2. 43% stenosis of the proximal left internal carotid artery relative to normal distal artery lumen diameter.
[2023-02-19 09:14] LABS: Estimated Glomerular Filt Rate > 60
== END 2023-02-19 08:46 | disposition home or self-care (01) ==
PROVIDERS: PCP Internal Medicine; Visit Provider Nurse Practitioner
DX: I65.23 Occlusion and stenosis of bilateral carotid arteries (principal)
CPT/HCPCS: 70498; Q9967

== ENCOUNTER 2023-07-07 20:19 | Emergency (ER) | payer MEDICARE, OTHER, SELFPAY ==
--- NOTE | ~2023-07-07 | XR_ITS ---
EXAMINATION: XR chest 2V DATE: 07/07/2023 20:59 INDICATION: Chest pain radiating to the left arm and jaw TECHNIQUE: PA and lateral views of the chest were obtained. COMPARISON: Chest radiograph dated dense 06/06 FINDINGS: Increased interstitial opacities in the bilateral lower lung zones. No pleural effusion or pneumothor ax. Heart size is normal with prominent left paracardial fat pad. Median sternotomy wires and mediast inal surgical clips are seen, likely from prior coronary artery bypass grafting. Mild to moderate tho racic spondylosis. IMPRESSION: 1. Mild interstitial pattern in the lower lung zones and favor mild pulmonary edema over pneumonia. Reviewed, dictated and finalized at location [facility]. IMPRESSION: 1. Mild interstitial pattern in the lower lung zones and favor mild pulmonary e ginny over pneumonia.
--- NOTE | 2023-07-07 20:20 | ECG_ITS ---
Measurements Intervals [place] Rate: 69 P: 56 [place]: 148 QRS: 18 QRSD: 97 T: 17 QT: 415 QTc: 445 Interpretive Statements SINUS RHYTHM INCOMPLETE RIGHT BUNDLE BRANCH BLOCK [90+ ms QRS DURATION, TERMINAL R IN V1/V2, 40+ ms S IN I/aVL/V4/V5/V6] NONSPECIFIC ST AND T WAVE ABNORMALITY COMPARED TO ECG 08/22/2022 13:34:36 NO SIGNIFICANT CHANGES Electronically Signed On 07-08-2023 11:36:12 CDT by Sandy Hernández M.D.
[2023-07-07 20:27] VITALS: BP 155/69; PULSE 80; RESP 19; TEMP 36.4; O2SAT 94
[2023-07-07 20:44] LABS: Basophils Absolute Auto 0.1 K/mm3 (0.0-0.1); Basophils Percent Auto 0.9 % (0.2-1.2); Eosinophils Absolute Auto 0.4 K/mm3 (0-0.3); Eosinophils Percent Auto 4.1 % (0-4.4); Hematocrit 31.3 % (42.0-52.0); Immature Granulocyte Absolute 0.02 K/mm3 (0.00-0.031); Immature Granulocyte Percent A 0.2 % (0-0.5); Lymphocytes Absolute Auto 3.19 K/mm3 (0.9-3.2); Lymphocytes Percent Auto 36.6 % (18.3-44.2); Mean Corpuscular HGB Conc 28.8 g/dl (32-36); Mean Corpuscular Hemoglobin 21.7 pg (26-34); Mean Corpuscular Volume 75.6 fl (80-100); Mean Platelet Volume 8.5 fl (7.4-10.4); Monocytes Absolute Auto 0.7 K/mm3 (0.1-0.6); Monocytes Percent Auto 8.4 % (2.6-8.5); Neutrophils Absolute Auto 4.3 K/mm3 (1.3-6.7); Neutrophils Percent Auto 49.8 % (45.5-73.1); Platelet Count Result 321 k/mm3 (150-375); Red Blood Count 4.14 M/mm3 (4.6-6.20); Red Cell Distribution Width 18.8 % (11.5-14.5); White Blood Count 8.7 K/mm3 (4.5-10.0)
[2023-07-07 20:54] LABS: Prothrombin Time 13.8 Seconds (11.1-14.7)
[2023-07-07 20:56] LABS: Partial Thromboplastin Time 33.4 SECONDS (22.3-36.8)
[2023-07-07 20:59] LABS: Alanine Aminotransferase 31 U/L (6-50); Albumin Level 3.9 g/dL (3.5-5.1); Alkaline Phosphatase 63 U/L (38-126); Anion Gap 10 mmol/L (8-16); Aspartate Amino Transferase 60 U/L (17-59); Bilirubin,Total 0.4 mg/dL (0.2-1.3); Blood Urea Nitrogen 17 mg/dL (9-20); Calcium 8.1 mg/dL (8.4-10.2); Carbon Dioxide 20 mmol/L (22-30); Chloride 106 mmol/L (98-107); Estimated CRCL calculation 100 ml/min; Estimated Glomerular Filt Rate > 60; Glucose 239 mg/dL (65-110); Lipase 139 U/L (23-300); Sodium 136 mmol/L (137-145)
[2023-07-07 21:10] LABS: Troponin I < 0.012 ng/mL (0.000-0.034)
[2023-07-07 21:21] LABS: Platelet Estimate Adequate (Adequate)
[2023-07-07 21:22] LABS: Hypochromasia 1+ (NORMAL); Microcytosis 2+ (NORMAL); Ovalocytes 1+ (NORMAL); Schistocytes None Seen (NORMAL)
[2023-07-07 23:52] VITALS: PULSE 54; RESP 27; O2SAT 97
[2023-07-08] VITALS (10 sets, daily range): BP systolic 123–158; BP diastolic 80–88; PULSE 55–100; RESP 14–27; O2SAT 90–98
[2023-07-08 00:31] LABS: Troponin I < 0.012 ng/mL (0.000-0.034)
--- NOTE | 2023-07-08 02:40 | ED.CHESTPAIN ---
HPI - Chest Pain General Chief Complaint: Chest Pain Stated Complaint: chest pain Time Seen by Provider: 07/08/23 00:59 History of Present Illness HPI narrative: This is a 67-year-old male, past history of coronary artery disease, status post three-vessel CABG, presents emergency department complaining of substernal chest pain, described as pressure-like and burning beginning approximately 730 yesterday evening. The patient states he was at rest, when he began feeling the pain. This is similar to previous episodes of chest pain. He was unable to find his nitroglycerin, prompting his presentation here. He has no other complaints today and states his pain has resolved. The patient states he had a cath done in April of this year that was reported as normal Related Data Home Medications Medication Instructions Recorded Confirmed aspirin 81 mg tablet 81 mg PO DAILY 02/05/21 12/24/22 lisinopril 20 mg tablet 10 mg PO DAILY 02/05/21 12/24/22 metformin 1,000 mg tablet 1,000 mg TID 02/05/21 12/24/22 multivit with minerals-iron 18 1 tablet PO DAILY 02/05/21 12/24/22 mg-folic ac 400 mcg-vit K 25 mcg tablet (Adults Multivitamin) omeprazole 20 mg capsule,delayed 20 mg PO DAILY 02/05/21 12/24/22 release acetaminophen 500 mg tablet 1,000 mg PO QID PRN Pain 08/22/22 12/24/22 polyethylene glycol 3350 17 17 g PO DAILY 08/22/22 12/24/22 gram/dose oral powder semaglutide 1 mg/dose (4 mg/3 mL) 1 mg subcut WEEKLY 08/22/22 12/24/22 subcutaneous pen injector sucralfate 100 mg/mL oral 5 ml PO TID 08/22/22 12/24/22 suspension cholecalciferol (vitamin D3) 50 50 mcg PO DAILY 12/24/22 12/24/22 mcg (2,000 unit) capsule cinnamon bark 500 mg capsule 500 mg PO DAILY 12/24/22 12/24/22 coenzyme Q10 75 mg capsule (Ultra 75 mg PO DAILY 12/24/22 12/24/22 CoQ10) cranberry 500 mg capsule 500 mg PO DAILY 12/24/22 12/24/22 krill oil 500 mg capsule See Rx Instructions PO DAILY 12/24/22 12/24/22 mecobalamin (vitamin B12) 1,000 1,000 mcg sublingual DAILY 12/24/22 12/24/22 mcg disintegrating tablet,sublingual vitamin B complex 1 tablet PO DAILY 12/24/22 12/24/22 atorvastatin 80 mg tablet 80 mg PO HS 06/15/23 empagliflozin 25 mg tablet 25 mg PO DAILY 06/15/23 metoprolol tartrate 100 mg tablet 50 mg PO Q12H 06/15/23 Allergies Allergy/AdvReac Type Severity Reaction Status Date / Time No Known Allergies Allergy Verified 06/16/23 07:52 Review of Systems Review of Systems: CONSTITUTIONAL: Denies fever, chills, or sweats. CARDIOVASCULAR: Chest pain denies palpitations, or edema. RESPIRATORY: Denies cough or dyspnea. GASTROINTESTINAL: Denies abdominal pain, nausea, vomiting, or diarrhea. GENITOURINARY: Denies dysuria or hematuria. SKIN: Denies rash or itching. MUSCULOSKELETAL: Denies back pain, joint pain, or myalgia. NEUROLOGIC: Denies headache, numbness, dizziness, or weakness. PSYCHIATRIC: Denies anxiety or depression. [facility] Past Medical History Medical History Coronary artery disease Diverticulitis Hyperlipidemia Hypertension Obstructive sleep apnea Skin cancer Type 2 diabetes mellitus Surgical History Surgical History History of cardiac catheterization History of colonoscopy with polypectomy History of coronary artery bypass graft (12/2010) Family History Family History Father Family history of congestive heart failure Diabetes mellitus Mother Diabetes mellitus Sibling Hypothyroidism Social History Social History Social History: Surrogate medical decision maker: Cristy Mace, spouse. Code status: Full code. Smoking packs per day: 1 Smoking cigarettes per day: 20.0 Smoking status: Former smoker Smoking end date: 11/16/01 Alcohol intake: never Substance use: never Lack of T
== END 2023-07-08 03:00 | disposition home or self-care (01) ==
PROVIDERS: Emergency Medicine; Emergency Provider Preventive Medicine Aerospace Medicine; PCP Nurse Practitioner
DX: I25.118 Atherosclerotic heart disease of native coronary artery with other forms of angina pectoris (principal); I10 Essential (primary) hypertension; E78.5 Hyperlipidemia, unspecified; G47.33 Obstructive sleep apnea (adult) (pediatric); Z95.1 Presence of aortocoronary bypass graft; Z85.828 Personal history of other malignant neoplasm of skin; Z87.891 Personal history of nicotine dependence; Z79.85 Long-term (current) use of injectable non-insulin antidiabetic drugs; Z79.82 Long term (current) use of aspirin; Z79.84 Long term (current) use of oral hypoglycemic drugs; I45.10 Unspecified right bundle-branch block; R94.31 Abnormal electrocardiogram [ECG] [EKG]; R91.8 Other nonspecific abnormal finding of lung field
CPT/HCPCS: 36415; 71046; 80053; 83690; 84484; 85025; 85610; 85730; 93005; 99284

== ENCOUNTER 2023-08-06 14:45 | Outpatient (CLI) | payer MEDICARE, OTHER, SELFPAY ==
[2023-08-06 15:32] LABS: Hemoglobin 8.2 g/dL (14.0-18.0); Mean Corpuscular HGB Conc 28.3 g/dl (32-36); Mean Corpuscular Hemoglobin 20.9 pg (26-34); Mean Corpuscular Volume 73.8 fl (80-100); Mean Platelet Volume 9.1 fl (7.4-10.4); Platelet Count Result 328 k/mm3 (150-375); Red Blood Count 3.93 M/mm3 (4.6-6.20); Red Cell Distribution Width 19.9 % (11.5-14.5); White Blood Count 7.4 K/mm3 (4.5-10.0)
[2023-08-06 17:10] LABS: Iron 17 ug/dL (49-181)
[2023-08-06 17:19] LABS: Percent Iron Saturation 4 % (20-50)
[2023-08-06 18:01] LABS: Ferritin 5.84 ng/mL (11.1-264)
== END 2023-08-06 14:46 | disposition home or self-care (01) ==
PROVIDERS: PCP Nurse Practitioner; Visit Provider Nurse Practitioner
DX: D50.9 Iron deficiency anemia, unspecified (principal)
CPT/HCPCS: 36415; 82728; 83540; 83550; 85027

== ENCOUNTER 2023-08-12 22:14 | Inpatient (IN) | payer MEDICARE, SELFPAY ==
[2023-08-12] VITALS (8 sets, daily range): BP systolic 127–157; BP diastolic 54–70; PULSE 66–77; RESP 15–21; TEMP 36.4–37.1; O2SAT 95–99
--- NOTE | ~2023-08-12 | XR_ITS ---
EXAMINATION: XR chest 2V DATE: 08/12/2023 22:57 INDICATION: Chest pain TECHNIQUE: PA and lateral views of the chest are obtained. COMPARISON: 07/07/2023 FINDINGS: There is a mild diffuse interstitial pattern. No pleural effusion or pneumothorax. Median s ternotomy wires and mediastinal surgical clips are seen, likely from prior coronary artery bypass gra fting. There is mild thoracic spondylosis. IMPRESSION: 1. Mild diffuse interstitial pattern which could reflect mild pulmonary edema. Reviewed, dictated and finalized at location F.
--- NOTE | 2023-08-12 22:25 | ECG_ITS ---
Measurements Intervals [place] Rate: 76 P: 35 [place]: 155 QRS: -29 QRSD: 83 T: -5 QT: 361 QTc: 407 Interpretive Statements SINUS RHYTHM INCOMPLETE RIGHT BUNDLE BRANCH BLOCK LOW QRS VOLTAGE IN PRECORDIAL LEADS CONSIDER ANTERIOR INFARCT, AGE INDETERMINATE CONSIDER INFERIOR INFARCT, AGE INDETERMINATE ABNORMAL ECG COMPARED TO ECG 07/07/2023 20:26:37 NO SIGNIFICANT CHANGES Electronically Signed On 08-13-2023 6:20:52 CDT by Michele Pardo D.O.
[2023-08-12 22:42] LABS: Basophils Absolute Auto 0.1 K/mm3 (0.0-0.1); Basophils Percent Auto 0.7 % (0.2-1.2); Eosinophils Absolute Auto 0.3 K/mm3 (0-0.3); Eosinophils Percent Auto 3.3 % (0-4.4); Hematocrit 30.1 % (42.0-52.0); Hemoglobin 8.6 g/dL (14.0-18.0); Immature Granulocyte Absolute 0.02 K/mm3 (0.00-0.031); Immature Granulocyte Percent A 0.2 % (0-0.5); Lymphocytes Percent Auto 25.1 % (18.3-44.2); Mean Corpuscular HGB Conc 28.6 g/dl (32-36); Mean Corpuscular Hemoglobin 20.7 pg (26-34); Mean Corpuscular Volume 72.4 fl (80-100); Mean Platelet Volume 9.1 fl (7.4-10.4); Monocytes Absolute Auto 0.8 K/mm3 (0.1-0.6); Monocytes Percent Auto 8.7 % (2.6-8.5); Neutrophils Absolute Auto 5.7 K/mm3 (1.3-6.7); Platelet Count Result 321 k/mm3 (150-375); Red Blood Count 4.16 M/mm3 (4.6-6.20); White Blood Count 9.2 K/mm3 (4.5-10.0)
[2023-08-12 22:48] LABS: Hypochromasia 1+ (NORMAL); Microcytosis 1+ (NORMAL); Ovalocytes 1+ (NORMAL); Platelet Estimate Adequate (Adequate); Schistocytes None Seen (NORMAL)
[2023-08-12 22:53] LABS: Alanine Aminotransferase 21 U/L (6-50); Albumin Level 3.9 g/dL (3.5-5.1); Alkaline Phosphatase 61 U/L (38-126); Anion Gap 7 mmol/L (8-16); Aspartate Amino Transferase 52 U/L (17-59); Bilirubin,Total 0.6 mg/dL (0.2-1.3); Blood Urea Nitrogen 13 mg/dL (9-20); Calcium 8.5 mg/dL (8.4-10.2); Carbon Dioxide 23 mmol/L (22-30); Chloride 103 mmol/L (98-107); Estimated CRCL calculation 114 ml/min; Estimated Glomerular Filt Rate > 60; Glucose 218 mg/dL (65-110); Lipase 103 U/L (23-300); Potassium 3.6 mmol/L (3.4-5.0); Sodium 133 mmol/L (137-145)
[2023-08-12 22:54] LABS: Partial Thromboplastin Time 33.6 SECONDS (22.3-36.8)
--- NOTE | 2023-08-12 22:55 | ED.GENADULT ---
HPI - General Adult General Chief complaint: Chest Pain Stated complaint: cp Time Seen by Provider: 08/12/23 22:26 History of Present Illness HPI narrative: Patient is a 67-year-old gentleman who presents emergency department with chief complaint of chest pain. Patient reports this evening he was eating and had an episode of discomfort in his chest the patient reports that radiated to his left shoulder patient states that it was improved with sublingual nitro patient reports his pain in the chest is resolved and still has a slight discomfort in the left shoulder area patient does have a history of cardiac disease has had a bypass and has had multiple stents before in the past. Related Data Home Medications Medication Instructions Recorded Confirmed aspirin 81 mg tablet 81 mg PO DAILY 02/05/21 08/06/23 lisinopril 20 mg tablet 10 mg PO DAILY 02/05/21 08/06/23 metformin 1,000 mg tablet 1,000 mg TID 02/05/21 08/06/23 multivit with minerals-iron 18 1 tablet PO DAILY 02/05/21 08/06/23 mg-folic ac 400 mcg-vit K 25 mcg tablet (Adults Multivitamin) omeprazole 20 mg capsule,delayed 20 mg PO DAILY 02/05/21 08/06/23 release acetaminophen 500 mg tablet 1,000 mg PO QID PRN Pain 08/22/22 08/06/23 polyethylene glycol 3350 17 17 g PO DAILY 08/22/22 08/06/23 gram/dose oral powder sucralfate 100 mg/mL oral 5 ml PO TID 08/22/22 08/06/23 suspension cholecalciferol (vitamin D3) 50 50 mcg PO DAILY 12/24/22 08/06/23 mcg (2,000 unit) capsule cinnamon bark 500 mg capsule 500 mg PO DAILY 12/24/22 08/06/23 coenzyme Q10 75 mg capsule (Ultra 75 mg PO DAILY 12/24/22 08/06/23 CoQ10) cranberry 500 mg capsule 500 mg PO DAILY 12/24/22 08/06/23 krill oil 500 mg capsule See Rx Instructions PO DAILY 12/24/22 08/06/23 mecobalamin (vitamin B12) 1,000 1,000 mcg sublingual DAILY 12/24/22 08/06/23 mcg disintegrating tablet,sublingual vitamin B complex 1 tablet PO DAILY 12/24/22 08/06/23 atorvastatin 80 mg tablet 80 mg PO HS 06/15/23 08/06/23 empagliflozin 25 mg tablet 25 mg PO DAILY 06/15/23 08/06/23 metoprolol tartrate 100 mg tablet 50 mg PO Q12H 06/15/23 08/06/23 isosorbide dinitrate 30 mg tablet 30 mg PO ONCE 08/06/23 08/06/23 Allergies Allergy/AdvReac Type Severity Reaction Status Date / Time No Known Allergies Allergy Verified 08/06/23 14:01 Review of Systems Review of Systems: A 10 system review of systems was completed on the patient and is negative except for what is stated in the HPI. Nursing and ancillary documentation was reviewed. FORMERLY [facility] Past Medical History Medical History Coronary artery disease Diverticulitis Diverticulosis GERD (gastroesophageal reflux disease) Hyperlipidemia Hypertension NOE (iron deficiency anemia) Obstructive sleep apnea Skin cancer Type 2 diabetes mellitus Surgical History Surgical History History of cardiac catheterization History of colonoscopy with polypectomy History of coronary artery bypass graft (12/2010) Family History Family History Father Family history of congestive heart failure Diabetes mellitus Mother Diabetes mellitus Sibling Hypothyroidism Social History Social History Social History: Surrogate medical decision maker: Cristy Mace, spouse. Code status: Full code. Smoking packs per day: 1 Smoking cigarettes per day: 20.0 Smoking status: Former smoker Smoking end date: 11/16/01 Alcohol intake: never Substance use: never Lack of Transportation: No Lack of Food: Never True Current Housing: I Have Housing Concerned About Future Housing: No Difficulty Paying Gas/Electric Bills: No Difficulty Paying for Meds: No Currently Unemployed: No Education: High School Diploma/GED Difficulty w/
[2023-08-12 23:23] LABS: NT Pro B Type Natriuretic Pept 2260 pg/mL (19.9-100)
[2023-08-12] MEDS: MORPHINE SULFATE (*CRX) 4 MG/ML INJ IV PUSH (23:37)
[2023-08-12] MEDS: HEPARIN SODIUM 5,000 UNITS/ML VIAL 4000 UNITS IV PUSH (23:40)
[2023-08-12] MEDS: HEPARIN SOD/D5W 100 UNITS/ML 25,000 UNITS/250 ML BAG 9 UNITS IV CONT (23:47)
[2023-08-13] VITALS (23 sets, daily range): BP systolic 121–146; BP diastolic 54–65; PULSE 55–89; RESP 12–22; TEMP 36.4–37; O2SAT 96–99; BMI 39.2
--- NOTE | 2023-08-13 | ECHO_ITS ---
Patient Info Name: Sergey Franks Age: 67 years : 1955 Gender: Male Ht: 66 in Wt: 236 lbs BSA: 2.28 m2 HR: 59 bpm BP: 126 / 54 mmHg Heart Rhythm: Sinus Rhythm Technical Quality: Fair Exam Date: 08/13/2023 8:59 AM Exam Location: [facility] Patient Status: Inpatient Admit Date: 08/13/2023 Staff Ordering Physician: Renate Navarro DO Attractions Associate: Isadora Keen RDCS Attending Provider: Rneate Navarro DO Referring Physician: Ramon GOSS; Exam Type: CA echo dop color flow w con Study Info Indications - Lower extremity swelling, orthopnea Complete two-dimensional, color flow and Doppler transthoracic echocardiogram is performed with contrast to opacify the left ventricle and to improve the deliniation of the left ventricle endocardial borders. Contrast/Agitated Saline Contrast/Ag. Saline: Definity Amount: 3.00 ml Administered By: Isadora Keen RDCS Existing IV Access: Yes IV Access Condition: patent with no signs of infiltration Summary 1. Left ventricular chamber dimension is normal. 2. There is mildly increased left ventricular wall thickness. 3. Left ventricular systolic function is normal, estimated at 65-70%. 4. The apex is akinetic. 5. The left ventricular diastolic function is grade III diastolic dysfunction. 6. Right ventricular systolic function is normal. 7. There is mild mitral valve regurgitation. 8. There is mild tricuspid valve regurgitation. Left Ventricle The apex is akinetic. Left ventricular chamber dimension is normal. Left ventricular systolic function is normal, estimated at 65-70%. There is mildly increased left ventricular wall thickness. Left ventricular septal wall motion is abnormal with septal motion related to a post-operative state. The left ventricular diastolic function is grade III diastolic dysfunction. Right Ventricle Right ventricular chamber dimension is normal. Right ventricular systolic function is normal. Left Atria Left atrial chamber dimension is normal. Right Atria Right atrial chamber dimension is normal. Atrial Septum Intact interatrial septum visualized by color flow imaging. Aortic Valve The aortic valve is trileaflet. There is no aortic valve stenosis. There is no aortic valve regurgitation. There is mild aortic valve calcification. Pulmonic Valve The pulmonic valve is not well visualized. Mitral Valve There is mild mitral valve regurgitation. Tricuspid Valve There is mild tricuspid valve regurgitation. Pericardium/Pleural There is no pericardial effusion. Inferior Vena Cava Normal inferior vena cava with no collapse upon inspiration consistent with elevated right atrial pressure, 8 mmHg. Aorta The aortic root size at the sinus of Valsalva is normal. Left Ventricular Outflow Tract Name Value Normal LVOT 2D LVOT Diameter 2.02 cm LVOT Doppler LVOT Peak Gradient 3 mmHg LVOT Mean Gradient 1 mmHg LVOT VTI 19.54 cm LVOT VTI/AV VTI Ratio 0.55 LVOT Stroke Volume 62.50 ml LVOT CO
[2023-08-13] MEDS: NITROGLYCERIN OINTMENT 1 INCH DOSE TRANSDERM ×4 (00:22→17:54)
--- NOTE | 2023-08-13 02:23 | PM.IMHP ---
H&P: HPI History of Present Illness Date/Time: 08/13/23 02:23 Chief Complaint: Chest pain Narrative: 67-year-old male with a past medical history of multivessel coronary disease, GERD, essential hypertension, hyperlipidemia and obstructive sleep apnea who presented to the ER with chest pain. The patient reports that for the last 2 or 3 months he has been having increasing lower extremity swelling. He has also been having intermittent chest pain. He went to his doctor at the OR and they start him on Imdur last month. He reports that when he saw him last week that the doctor stated they were going to increase his Imdur. He has been having at increasing episodes of chest pain that escalated to the point that since he has picked up is new bottle of nitro 5 days ago he has taken the entire bottle. He took 6 nitro today due to recurrent chest pain. The chest pain is central chest pressure in nature and worse than when he had his heart attack in 2010. The pain radiates to the left shoulder blade and down the left arm. It is accompanied by sensation of lightheadedness shortness of breath and mild nausea the pain has been occurring when he lays down. Is accompanied by paroxysmal nocturnal dyspnea. He usually has to sit up on the into the bed for several minutes after he takes the nitro for the pain to resolve. The pain is occurring at rest at other times during the day as well. 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 He the dyspnea on exertion with activity has increased over the last month or so. Does report a history of obstructive sleep apnea and his CPAP broke just before COVID. It was then re called after that knee had difficulty getting a new machine. He has been without his CPAP machine for almost 3 years. He has not had a sleep study in at least 5 years if not longer. He has not been having any palpitations. His reports that the lower extremity swelling that she noticed several months ago has been getting worse. Patient's notes that the patient also gets up about 3-4 times a night to urinate. He denies weak urine stream but does report sensation of incomplete bladder emptying at times. He denies a known history of BPH. He does admit to having anemia over the last year so. He a had an EGD at the OR recently that told him his stomach was less irritated than it was before. It sounds like the patient was placed on Carafate and PPI therapy and that has helped. He denies any stomach pain. He has not had any hematochezia or melena. His doctor is trying to arrange for him to have an outpatient colonoscopy. He reports that his been a couple of years since his last colonoscopy. He does eat iron rich foods. He has recently started on ferrous sulfate any initially thought that the for sulfate may have been causing his chest pain. Source of information: Patient report, family report, ER report, external medical records. Patient's case was discussed with his at bedside with the patient's permission. Review of Systems Review of Systems: 12 systems were reviewed with pertinent positives and negatives per HPI. Except as documented in the HPI, all other systems were reviewed and are negative. FORMERLY [facility] Past Medical History Medical History (Updated 08/13/23 @ 04:43 by Renate Navarro DO) Carotid stenosis Bilateral 50-69% noted on Doppler 12/2022 with CTA demonstrate 18% stenosis of the right internal carotid and 43% stenosis of the left Coronary artery disease Diverticulitis Diverticulosis Gastritis GERD (gastroesophageal reflux disease) Hyperlipidemia Hypertension NOE (iron deficiency anemia) Obstructive sleep apnea Skin cancer Type 2 diabetes mellitus Surgical History Surgical History History of cardiac catheterization History of colonoscopy with polypectomy History of coronary artery bypass graft
--- NOTE | 2023-08-13 02:31 | ADMGEN ---
This patient, Sergey Franks, was admitted to IMU Room 209-01. Patient/family oriented to hospital policies and general routines including ID bracelet, bed and alarms, visiting hours, pain management, procedures, bathroom and other care routines, personal items, smoking policy, room service/diet, and visiting hours. Information on how to activate the Rapid Response Team has been discussed. Patient/Family are encouraged to report perceived risks to care and to ask questions if they do not understand what they are told or what they should do.
[2023-08-13 05:16] LABS: Basophils Absolute Auto 0.1 K/mm3 (0.0-0.1); Basophils Percent Auto 0.7 % (0.2-1.2); Eosinophils Absolute Auto 0.4 K/mm3 (0-0.3); Eosinophils Percent Auto 4.4 % (0-4.4); Hematocrit 30.1 % (42.0-52.0); Hemoglobin 8.7 g/dL (14.0-18.0); Immature Granulocyte Absolute 0.03 K/mm3 (0.00-0.031); Immature Granulocyte Percent A 0.3 % (0-0.5); Lymphocytes Absolute Auto 3.39 K/mm3 (0.9-3.2); Lymphocytes Percent Auto 38.1 % (18.3-44.2); Mean Corpuscular HGB Conc 28.9 g/dl (32-36); Mean Corpuscular Volume 72.5 fl (80-100); Mean Platelet Volume 8.6 fl (7.4-10.4); Monocytes Absolute Auto 0.8 K/mm3 (0.1-0.6); Monocytes Percent Auto 9.2 % (2.6-8.5); Neutrophils Absolute Auto 4.2 K/mm3 (1.3-6.7); Neutrophils Percent Auto 47.3 % (45.5-73.1); Platelet Count Result 326 k/mm3 (150-375); Red Blood Count 4.15 M/mm3 (4.6-6.20); Red Cell Distribution Width 19.9 % (11.5-14.5); White Blood Count 8.9 K/mm3 (4.5-10.0)
[2023-08-13 05:28] LABS: Partial Thromboplastin Time 67.3 SECONDS (22.3-36.8)
[2023-08-13] MEDS: HEPARIN SODIUM 5,000 UNITS/ML VIAL 3000 UNITS IV PUSH ×2 (05:48→19:30)
[2023-08-13] MEDS: SUCRALFATE SUSP 100 MG/ML 10 ML UDC 500 MG PO ×2 (05:57→16:35)
[2023-08-13 06:39] LABS: Macrocytosis 2+ (NORMAL); Ovalocytes 1+ (NORMAL); Platelet Estimate Adequate (Adequate)
[2023-08-13 06:40] LABS: Anisocytosis 2+ (NORMAL); Poikilocytosis 1+ (NORMAL); Schistocytes None Seen (NORMAL)
[2023-08-13 08:11] LABS: Glucose Point of Care 130 mg/dl (65-105)
[2023-08-13] MEDS: PERFLUTREN LIPID MICROSPHERES 1.5 ML VIAL DILUTED TO 10 ML TOTAL VOLUME IV PUSH (09:30)
[2023-08-13] MEDS: lisinopriL 10 MG TABLET PO (09:32)
[2023-08-13] MEDS: METOPROLOL TARTRATE 50 MG TAB PO ×2 (09:32→20:10)
[2023-08-13] MEDS: CLOPIDOGREL BISULFATE 75 MG TABLET PO (09:32)
[2023-08-13] MEDS: PANTOPRAZOLE 40 MG TABLET PO (09:32)
[2023-08-13] MEDS: ASPIRIN 81 MG ENTERIC TABLET PO (09:32)
--- NOTE | 2023-08-13 09:48 | PM.IMPN ---
Progress Note: A&P Assessment and Plan (1) Acute non-ST elevation myocardial infarction (NSTEMI): Code(s): I21.4 - Non-ST elevation (NSTEMI) myocardial infarction Status: Acute (2) GERD (gastroesophageal reflux disease): Qualifiers: Esophagitis presence: esophagitis presence not specified Qualified Code(s): K21.9 - Gastro-esophageal reflux disease without esophagitis Code(s): K21.9 - Gastro-esophageal reflux disease without esophagitis Status: Acute (3) Obstructive sleep apnea: Code(s): G47.33 - Obstructive sleep apnea (adult) (pediatric) Status: Acute (4) Type 2 diabetes mellitus: Qualifiers: Diabetes mellitus complication status: without complication Diabetes mellitus halfway insulin use: without halfway use Qualified Code(s): E11.9 - Type 2 diabetes mellitus without complications Code(s): E11.9 - Type 2 diabetes mellitus without complications Status: Acute (5) Hypertension: Qualifiers: Hypertension type: primary hypertension Qualified Code(s): I10 - Essential (primary) hypertension Code(s): I10 - Essential (primary) hypertension Status: Acute (6) NOE (iron deficiency anemia): Qualifiers: Iron deficiency anemia type: chronic blood loss Qualified Code(s): D50.0 - Iron deficiency anemia secondary to blood loss (chronic) Code(s): D50.9 - Iron deficiency anemia, unspecified Status: Acute Plan Patient presents with non STEMI. Troponins are continuing to trend upward. Patient is on heparin drip. He received aspirin therapy prior to arrival. Will continue patient's home Imdur, Plavix metoprolol, lisinopril and lipid agents. Cardiology has been consulted. Patient will be NPO at midnight possible intervention. Currently patient is not having any further chest pain. Patient's blood pressures were upper limits of desired range in the ER. But improved after nitropaste. Will continue home metoprolol and AKBAR-inhibitor. Patient is reporting some new lower extremity swelling he is also reporting paroxysmal nocturnal dyspnea. He may also have component over thigh apnea because he mentions moving 2-3 pillows on the bed. This is likely exacerbated by his obstructive sleep apnea and the fact that he does not have a CPAP. Will obtain echocardiogram to further evaluate cardiac structure and function. Will order auto titrating CPAP/BiPAP. I encouraged the patient is to pursue obtaining a new CPAP from primary providers. Patient is on oral hypoglycemic agents at home. Glucoses are moderately elevated. Will place patient on moderate sliding scale insulin with Accu-Cheks and hypoglycemia protocol will will continue home oral hypoglycemic agents. Patient has a known history of iron deficiency anemia. He was recently started on iron supplements due to what sounds like chronic losses probably from gastritis. He already has follow-up scheduled for this and is in the process of obtaining a repeat out patient colonoscopy. Subjective Date/time seen: 08/13/23 09:48 Interval history: I saw and examined the patient in the morning. Patient denies chest pain, or short of breath. No new issue even overnight. Patient blood pressure stable Exam Narrative: GENERAL: Pleasant, in no acute distress. Well-nourished. - EYES: EOMI. Anicteric. - HENT: Moist mucous membranes. - LUNGS: Clear to auscultation bilaterally, no wheezing, rhonchi, or rales. - CARDIOVASCULAR: Regular rate and rhythm. No murmur. No JVD. - ABDOMEN: Soft, non-tender and non-distended. No palpable masses. - EXTREMITIES: No edema. Peripheral pulses 2+. Non-tender. - NEUROLOGIC: No focal neurological deficits. CN II-XII grossly intact. - PSYCHIATRIC: Awake, Alert and oriented x 3. Appropriate mood and affect. - SKIN: No rashes or lesions. Warm. - LYMPH: No cervical lymphadenopathy. Objective Data Vital Signs Vital Signs: Vital Sign
--- NOTE | 2023-08-13 10:13 | IVDEFINITY ---
Prior to administration of IV Definity the patient was educated on the risks and benefits of the imaging enhancing agent including potential adverse side effects. The patient verbalized understanding. Allergies were verified. No exclusion criteria were identified and at least one of the following inclusion criteria were met: 1) physician request, 2) patient technically difficult to image (per the [place] [employer] guidelines of two or more segments not discernable within the apical view), or 3) questionable left ventricular function. ?
[2023-08-13 11:25] LABS: Glucose Point of Care 130 mg/dl (65-105)
[2023-08-13 12:33] LABS: Anion Gap 6 mmol/L (8-16); Blood Urea Nitrogen 13 mg/dL (9-20); Calcium 8.6 mg/dL (8.4-10.2); Carbon Dioxide 26 mmol/L (22-30); Chloride 104 mmol/L (98-107); Estimated CRCL calculation 115 ml/min; Estimated Glomerular Filt Rate > 60; Glucose 114 mg/dL (65-110); Potassium 4.4 mmol/L (3.4-5.0); Sodium 136 mmol/L (137-145)
[2023-08-13 12:49] LABS: Partial Thromboplastin Time 94.8 SECONDS (22.3-36.8)
--- NOTE | 2023-08-13 15:17 | PM.CNCAR ---
Assessment and Plan Assessment and plan (1) Acute non-ST elevation myocardial infarction (NSTEMI): Code(s): I21.4 - Non-ST elevation (NSTEMI) myocardial infarction Status: Acute (2) Coronary artery disease: Qualifiers: Coronary Disease-Associated Artery/Lesion type: mo[place]gan artery [place] vs. transplanted heart: mohegan heart Associated angina: with stable angina Qualified Code(s): I25.118 - Atherosclerotic heart disease of mohegan coronary artery with other forms of angina pectoris Code(s): I25.10 - Atherosclerotic heart disease of mohegan coronary artery without angina pectoris Status: Acute (3) Hypertension: Qualifiers: Hypertension type: primary hypertension Qualified Code(s): I10 - Essential (primary) hypertension Code(s): I10 - Essential (primary) hypertension Status: Acute (4) Hyperlipidemia: Qualifiers: Hyperlipidemia type: other hyperlipidemia Qualified Code(s): E78.49 - Other hyperlipidemia Code(s): E78.5 - Hyperlipidemia, unspecified Status: Acute Plan Given NSTEMI, recommend cardiac catheterization. Discussed the procedure with the patient, including indication for procedure, procedure details, risks vs benefits. etc. Patient agreeable to cath. Will plan for cardiac catheterization 08/14. Patient to be NPO at midnight. In the meantime, continue Heparin drip, ASA, Plavix, high-intensity statin, beta nusrat. Imdur. I did discuss with the patient that we cannot perform complex coronary intervention here at [facility], therefore, if he did need high risk or complex PCI, it would have to be done at another institution. Please obtain records from his [facility]. Please obtain his last cath report from the [facility] as well. History of Present Illness History of Present Illness Consult date/time: 08/13/23 15:17 Requesting physician: Narendra Goldberg MD Consult reason: chest pain Reason For Visit: NSTEMI Narrative: We are consulted for NSTEMI. This is a 67 year old male with coronary artery disease s/p CABG and PCI who presented with chest pain. Patient was last seen by us in August 2022 where coronary angiography showed: Three-vessel coronary artery disease with right coronary dominant circulation. High-grade ostial left main disease followed by moderate disease in the shaft of the left main. Occlusion of the LAD after small septal and diagonal branch take the origin.? LAD is a small diffusely diseased vessel as well. Occlusion of the circumflex after 2 very tiny OM branches arise. Severe disease in the right coronary including proximal stenosis 80-90%, subtotal long area of stenosis in the 2nd portion of the artery and 80% stenosis in the 1st portion of the PDA. Occlusion of the saphenous vein graft to the RPDA. Patent saphenous vein graft to the circumflex distal to the occlusion. NUÑEZ graft to the LAD which is patent there is a high-grade 90% distal anastomotic lesion. After this cardiac catheterization, patient was referred to Dr. García for high risk PCI. Patient states he did undergo intervention at that time by Dr. García. He follows with [facility], and just saw his Otolaryngology Teacher last week. Patient states he had undergone repeat PCI on April at the [facility]. Patient states he has been having intermittent chest pain for some time now, for which he was working with his [facility] for further management. Patient states that he had severe chest pain last night / early this morning, for which he came to [place] [facility]. ER workup showed EKG with sinus rhythm, IRBBB, no ischemic changes. His Hgb was 8.6. He has developed anemia over the past year, for which he recently had an EGD done at the [facility]. His troponins are 4.540, 5.400, 5.570. He has been chest pain free since they placed a NTG patch on him. Heparin drip started. Review of Systems Review of Systems: All systems reviewed & are unremarkable except as noted in HPI and below (HP
[2023-08-13 15:46] LABS: Glucose Point of Care 145 mg/dl (65-105)
[2023-08-13] MEDS: FERROUS SULFATE 325 MG TABLET DR PO (16:36)
[2023-08-13] MEDS: ISOSORBIDE MONONITRATE 30 MG TAB.ER.24H PO (16:36)
--- NOTE | 2023-08-13 16:49 | PC.NURSE ---
On 08/13/23, the student, Claudia [facility]UNO [facility], provided care and completed [facility] documentation on this patient. I have reviewed the student's documentation and agree with the findings.
[2023-08-13 19:21] LABS: Partial Thromboplastin Time 69.1 SECONDS (22.3-36.8)
[2023-08-13] MEDS: ATORVASTATIN 40 MG TABLET 80 MG PO (20:11)
[2023-08-13 20:26] LABS: Glucose Point of Care 147 mg/dl (65-105)
[2023-08-13] MEDS: HEPARIN SOD/D5W 100 UNITS/ML 25,000 UNITS/250 ML BAG 13 UNITS IV CONT (23:10)
[2023-08-14] VITALS (33 sets, daily range): BP systolic 109–155; BP diastolic 42–87; PULSE 56–75; RESP 12–23; TEMP 36.2–36.6; O2SAT 94–100
[2023-08-14] MEDS: NITROGLYCERIN OINTMENT 1 INCH DOSE TRANSDERM ×5 (00:35→23:45)
[2023-08-14 01:44] LABS: Partial Thromboplastin Time 143.1 SECONDS (22.3-36.8)
[2023-08-14] MEDS: SUCRALFATE SUSP 100 MG/ML 10 ML UDC 500 MG PO ×2 (05:58→16:13)
[2023-08-14 07:26] LABS: Glucose Point of Care 156 mg/dl (65-105)
--- NOTE | 2023-08-14 07:38 | WPDMODSED ---
Moderate Sedation Note-Pt Data Patient Data Diagnosis: ACS Present Complaint: Chest pain Procedure to be performed/Plan: [facility] Allergies Allergy/AdvReac Type Severity Reaction Status Date / Time No Known Allergies Allergy Verified 08/06/23 14:01 Home Medications Medication Instructions Recorded Confirmed Type aspirin 81 mg tablet 81 mg PO DAILY 02/05/21 08/13/23 History lisinopril 20 mg tablet 10 mg PO DAILY 02/05/21 08/13/23 History multivit with minerals-iron 18 1 tablet PO DAILY 02/05/21 08/13/23 History mg-folic ac 400 mcg-vit K 25 mcg tablet (Adults Multivitamin) omeprazole 20 mg capsule,delayed 20 mg PO DAILY 02/05/21 08/13/23 History release acetaminophen 500 mg tablet 1,000 mg PO QID PRN Pain 08/22/22 08/13/23 History polyethylene glycol 3350 17 17 g PO DAILY 08/22/22 08/13/23 History gram/dose oral powder sucralfate 100 mg/mL oral 5 ml PO TID 08/22/22 08/13/23 History suspension clopidogrel 75 mg tablet 75 mg PO QAM 30 days #30 tabs 08/26/22 08/13/23 Rx cholecalciferol (vitamin D3) 50 50 mcg PO DAILY 12/24/22 08/13/23 History mcg (2,000 unit) capsule coenzyme Q10 75 mg capsule (Ultra 75 mg PO DAILY 12/24/22 08/13/23 History CoQ10) cranberry 500 mg capsule 500 mg PO DAILY 12/24/22 08/13/23 History mecobalamin (vitamin B12) 1,000 1,000 mcg sublingual DAILY 12/24/22 08/13/23 History mcg disintegrating tablet,sublingual vitamin B complex 1 tablet PO DAILY 12/24/22 08/13/23 History atorvastatin 80 mg tablet 80 mg PO HS 06/15/23 08/13/23 History empagliflozin 25 mg tablet 25 mg PO DAILY 06/15/23 08/13/23 History metoprolol tartrate 100 mg tablet 50 mg PO Q12H 06/15/23 08/13/23 History nitroglycerin 0.4 mg sublingual 0.4 mg sublingual Q5MIN PRN Chest 07/08/23 08/13/23 Rx tablet (Nitrostat) Pain #30 tabs ferrous sulfate 325 mg (65 mg 325 mg PO BID #60 tabs 08/06/23 08/13/23 Rx iron) tablet cinnamon bark 500 mg capsule 1,000 mg PO DAILY 08/13/23 08/13/23 History (Cinnamon) isosorbide mononitrate 30 mg 30 mg PO DAILY 08/13/23 08/13/23 History tablet,extended release 24 hr krill oil 500 mg capsule 500 mg PO DAILY 08/13/23 08/13/23 History metformin 1,000 mg tablet See Rx Instructions .Route .COMPLEX 08/13/23 08/13/23 History Current Medications: Active Medications Acetaminophen (Acetaminophen 500 Mg Tablet) 1,000 mg PO QID PRN PRN Reason: Pain 1-3 Aspirin (Aspirin 81 Mg Enteric Tablet) 81 mg PO DAILY [facility] Stop: 09/12/23 08:59 Last Admin: 08/13/23 09:32 Dose: 81 mg Atorvastatin Calcium (Atorvastatin 40 Mg Tablet) 80 mg PO HS [facility] Last Admin: 08/13/23 20:11 Dose: 80 mg Clopidogrel Bisulfate (Clopidogrel Bisulfate 75 Mg Tablet) [facility] Admin: 08/13/23 09:32 Dose: 75 mg Cyanocobalamin (Cyanocobalamin 1,000 Mcg Tablet) 1,000 mcg BY MOUTH DAILY [facility] Stop: 09/12/23 08:59 Last Admin: 08/13/23 09:10 Dose: Not Given Dextrose (Dextrose 50% 25 Gm/50 Ml Syringe) 12.5 gm IV PUSH PRN PRN; Protocol PRN Reason: Hypoglycemia Empagliflozin (Empagliflozin 25 Mg Tablet) 25 mg PO DAILY [facility] Last Admin: 08/13/23 09:11 Dose: Not Given Ferrous Sulfate (Ferrous Sulfate [address]) 325 mg PO BID [facility] Stop: 09/12/23 08:59 Last Admin: 08/13/23 16:36 Dose: 325 mg Glucagon (Glucagon For Inj 1 Mg Vial) 1 mg IM PRN PRN; Protocol PRN Reason: Hypoglycemia Glucose (Glucose Oral Gel 15 Gm Of Glucse In 37.5 Gm Tube) 15 gm PO PRN PRN; Protocol PRN Reason: Hypoglycemia Heparin Sodium (Porcine) (Heparin Sodium 5,000 Units/Ml Vial) 3,000 units IV PUSH PRN PRN PRN Reason: aPTT 55 - 70 seconds Last Admin: 08/13/23 19:30 Dose: 3,000 units Heparin Sodium (Porcine) (Heparin Sodium 5,000 Units/Ml Vial) 4,000 units IV PUSH PRN PRN PRN Reason: aPTT less than 55 seconds Heparin Sodium/Dextrose (Heparin Sodium/D5w 100 Units/Ml) 25,000 units in 250 mls @ 11 mls/hr IV CONT .[id number] [facility]; Protocol Last Titration: 08/14/23 03:17 Dose: 1,100 units/hr, 11 mls
[2023-08-14] MEDS: ISOSORBIDE MONONITRATE 30 MG TAB.ER.24H PO (07:44)
[2023-08-14] MEDS: ASPIRIN 81 MG ENTERIC TABLET PO (07:46)
[2023-08-14] MEDS: CLOPIDOGREL BISULFATE 75 MG TABLET PO (07:46)
[2023-08-14] MEDS: METOPROLOL TARTRATE 50 MG TAB PO ×2 (07:46→20:47)
[2023-08-14] MEDS: lisinopriL 10 MG TABLET PO (07:46)
[2023-08-14 09:09] LABS: Activated Clotting Time 137 SEC (74-137)
--- NOTE | 2023-08-14 09:10 | WPDCARDPROC ---
Cardiac Cath Procedure Note Date of procedure:: 08/14/23 Performing physician:: Jose D Harris MD Indication:: acute coronary syndrome/ non ST elevation OR Brief clinical history:: this is a 67-year-old man well known to have multivessel coronary disease with previous bypass grafting and previous complex PCI. [facility] He presented to this hospital with recurrent ischemic chest pain with a moderate rise in his troponin. For this reason he is being returned to the cardiac catheterization lab here for follow-up angiographic assessment. Procedure Procedure performed:: Left ventriculogram coronary angiogram saphenous vein graft angiogram internal mammary graft angiogram Sedation/Medication given:: fentanyl 50 mg Versed 2 mg case start time 8:33 a.m. case end time 8:58 a.m. sedation provided by Megan Ritter RN, trained observer Access site:: right femoral Estimated blood loss:: 25 cc Procedure note:: patient was brought to the cardiac catheterization lab in the postabsorptive state where the right femoral triangle was prepared in the usual fashion. Using the modified Seldinger technique the femoral artery was punctured and a 5 Trin[place] vascular sheath was placed. After this left heart catheterization was performed. I used a 5 [place] angled pigtail catheter to perform a left ventriculogram in the DEL REAL projection and to document left-sided hemodynamics. Following this I used a 5 [place] FL4 catheter to engage and inject inject the left coronary artery. Following this I used the 5 [place] JR4 catheter to engage and inject the [place] right coronary artery as well as the saphenous vein graft to the circumflex. The patient's saphenous vein graft to the right coronary is known to be totally occluded and was not reinjected at this time. Following that I used a 5 [place] BEN catheter to inject the left internal mammary artery graft to the LAD. The cineangiograms were then reviewed and the case was terminated. The sheath will be removed with direct manual compression. Patient was on heparin on the floor ACT was checked at the conclusion of the case and was 135 which is suitable for sheath removal. Procedure was uncomplicated and well tolerated there was no sign of groin hematoma upon him leaving the cardiac catheterization lab. Findings:: Hemodynamics: Central aortic pressure is 118 over 56 left ventricle 12/03/1979 end-diastolic 16 there is no gradient across the aortic valve upon pullback. Left ventricle: The LV is of normal size contractility overall well perfused. The anteroapical segment is slightly hypodynamic. The global ejection fraction is 60%. The left main coronary artery is medium in caliber and diffusely diseased there is about 70% stenosis in the mid shaft of the left main coronary artery. This is a chronic lesion that has been previously seen. left anterior descending is a medium-sized diffusely diseased artery. Proximally there are no high-grade lesions it gives rise to a medium-sized 1st diagonal branch and a septal perforating complex. Following this the LAD is 100% occluded. This is a chronic known total occlusion the circumflex system gives rise to a very small diminutive OM1 branch following this the circumflex is totally occluded. This is a known chronic total occlusion of right coronary artery is moderate caliber dominant to the posterior circulation. There is a long area of stent material from the proximal to the distal right coronary artery. This area remains nicely patent. There is no significant loss of lumen. There is about 80% stenosis in the proximal 3rd of the RPDA. This is a chronic known lesion that has been described previously saphenous vein graft to the circumflex is a large caliber segment of saphenous vein it is widely patent it anastomosis to the distal circumflex is nice and patent and fills the more distal marginal branches very mary
--- NOTE | 2023-08-14 09:51 | PM.IMPN ---
Progress Note: A&P Assessment and Plan (1) Acute non-ST elevation myocardial infarction (NSTEMI): Code(s): I21.4 - Non-ST elevation (NSTEMI) myocardial infarction Status: Acute (2) GERD (gastroesophageal reflux disease): Qualifiers: Esophagitis presence: esophagitis presence not specified Qualified Code(s): K21.9 - Gastro-esophageal reflux disease without esophagitis Code(s): K21.9 - Gastro-esophageal reflux disease without esophagitis Status: Acute (3) Obstructive sleep apnea: Code(s): G47.33 - Obstructive sleep apnea (adult) (pediatric) Status: Acute (4) Type 2 diabetes mellitus: Qualifiers: Diabetes mellitus complication status: without complication Diabetes mellitus fci insulin use: without fci use Qualified Code(s): E11.9 - Type 2 diabetes mellitus without complications Code(s): E11.9 - Type 2 diabetes mellitus without complications Status: Acute (5) Hypertension: Qualifiers: Hypertension type: primary hypertension Qualified Code(s): I10 - Essential (primary) hypertension Code(s): I10 - Essential (primary) hypertension Status: Acute (6) NOE (iron deficiency anemia): Qualifiers: Iron deficiency anemia type: chronic blood loss Qualified Code(s): D50.0 - Iron deficiency anemia secondary to blood loss (chronic) Code(s): D50.9 - Iron deficiency anemia, unspecified Status: Acute Plan Chest pain Patient has history of CAD status post CABG Patient presents with non STEMI. Troponins are continuing to trend upward. Started heparin drip. He received aspirin therapy prior to arrival. continue patient's home Imdur, Plavix metoprolol, lisinopril and lipid agents. Cardiology has been consulted. Patient underwent cardiac catheterization today, cardiac catheterization revealed multivessel disease Monotype Machinist has reach out to the [facility] for [facility] Currently patient is not having any chest pain. Essential hypertension continue home metoprolol and AKBAR-inhibitor. TIKA auto titrating CPAP/BiPAP. Glucoses are moderately elevated. place patient on moderate sliding scale insulin with Accu-Cheks and hypoglycemia protocol Chronic anemia Hemoglobin close to baseline Patient has a known history of iron deficiency anemia. He was recently started on iron supplements due to what sounds like chronic losses probably from gastritis. He already has follow-up scheduled for this and is in the process of obtaining a repeat out patient colonoscopy. Subjective Date/time seen: 08/14/23 09:51 Interval history: I saw and examined the patient however patient came back from cardiac catheterization. Patient denies chest pain, or short of breath. Denies focal weakness, vision change, abdomen pain. Patient afebrile blood pressure stable Exam Narrative: GENERAL: Pleasant, in no acute distress. Well-nourished. - EYES: EOMI. Anicteric. - HENT: Moist mucous membranes. - LUNGS: Clear to auscultation bilaterally, no wheezing, rhonchi, or rales. - CARDIOVASCULAR: Regular rate and rhythm. No murmur. No JVD. - ABDOMEN: Soft, non-tender and non-distended. No palpable masses. - EXTREMITIES: No edema. Peripheral pulses 2+. Non-tender. Needle inserting site in right groin, no hematoma or tenderness - NEUROLOGIC: No focal neurological deficits. CN II-XII grossly intact. - PSYCHIATRIC: Awake, Alert and oriented x 3. Appropriate mood and affect. - SKIN: No rashes or lesions. Warm. - LYMPH: No cervical lymphadenopathy. Objective Data Vital Signs Vital Signs: Vital Signs - 24 hr 08/13/23 11:15 08/13/23 10:00 08/13/23 12:00 Temperature 98.4 F Pulse Rate 57 L 58 L Respiratory Rate 19 Blood Pressure 144/56 H Pulse Oximetry 99 99 Oxygen Delivery Room Air 08/13/23 12:00 08/13/23 14:00 08/13/23 15:51 Temperature 98.1 F Pulse Rate 56 L 59 L 63 Respiratory Rate 19
[2023-08-14 11:51] LABS: Glucose Point of Care 117 mg/dl (65-105)
[2023-08-14] MEDS: CYANOCOBALAMIN 1,000 MCG TABLET 1000 MCG BY MOUTH (11:57)
[2023-08-14] MEDS: PANTOPRAZOLE 40 MG TABLET PO (11:57)
[2023-08-14] MEDS: EMPAGLIFLOZIN 25 MG TABLET PO (11:57)
[2023-08-14] MEDS: FERROUS SULFATE 325 MG TABLET DR PO ×2 (11:57→17:30)
[2023-08-14] MEDS: VITAMIN B COMPLEX CAPSULE 1 CAP PO (11:57)
[2023-08-14] MEDS: CHOLECALCIFEROL 1,000 UNITS TABLET 2000 UNITS PO (11:57)
[2023-08-14] MEDS: MULTIVITAMINS /C LUTEIN (CENTRUM SILVER) TABLET *BKC 1 TAB PO (11:57)
[2023-08-14] MEDS: SODIUM CHLORIDE 0.9% IV 1,000 ML 125 ML IV CONT (11:58)
[2023-08-14 12:35] LABS: Anion Gap 4 mmol/L (8-16); Blood Urea Nitrogen 15 mg/dL (9-20); Calcium 8.4 mg/dL (8.4-10.2); Carbon Dioxide 27 mmol/L (22-30); Chloride 102 mmol/L (98-107); Estimated CRCL calculation 99 ml/min; Estimated Glomerular Filt Rate > 60; Glucose 145 mg/dL (65-110); Sodium 133 mmol/L (137-145)
[2023-08-14] MEDS: HYDROcodone/acetaminophen (*CRX) 5-325 MG TABLET 1 TAB PO (16:12)
[2023-08-14 16:35] LABS: Glucose Point of Care 119 mg/dl (65-105)
[2023-08-14 16:37] LABS: Basophils Absolute Auto 0.1 K/mm3 (0.0-0.1); Eosinophils Absolute Auto 0.3 K/mm3 (0-0.3); Eosinophils Percent Auto 4.5 % (0-4.4); Hematocrit 31.8 % (42.0-52.0); Immature Granulocyte Absolute 0.02 K/mm3 (0.00-0.031); Immature Granulocyte Percent A 0.3 % (0-0.5); Lymphocytes Absolute Auto 2.02 K/mm3 (0.9-3.2); Lymphocytes Percent Auto 32.4 % (18.3-44.2); Mean Corpuscular HGB Conc 28.3 g/dl (32-36); Mean Corpuscular Volume 74.3 fl (80-100); Mean Platelet Volume 9.3 fl (7.4-10.4); Monocytes Absolute Auto 0.7 K/mm3 (0.1-0.6); Monocytes Percent Auto 11.6 % (2.6-8.5); Neutrophils Absolute Auto 3.1 K/mm3 (1.3-6.7); Neutrophils Percent Auto 50.2 % (45.5-73.1); Platelet Count Result 340 k/mm3 (150-375); Red Blood Count 4.28 M/mm3 (4.6-6.20); Red Cell Distribution Width 20.7 % (11.5-14.5); White Blood Count 6.2 K/mm3 (4.5-10.0)
[2023-08-14 17:10] LABS: Anisocytosis 1+ (NORMAL); Platelet Estimate Adequate (Adequate)
[2023-08-14 17:11] LABS: Hypochromasia 1+ (NORMAL); Macrocytosis 1+ (NORMAL); Ovalocytes 1+ (NORMAL); Schistocytes None Seen (NORMAL)
[2023-08-14 20:10] LABS: Glucose Point of Care 133 mg/dl (65-105)
[2023-08-14] MEDS: ATORVASTATIN 40 MG TABLET 80 MG PO (20:47)
[2023-08-14 22:23] LABS: Partial Thromboplastin Time 57.1 SECONDS (22.3-36.8)
[2023-08-14] MEDS: HEPARIN SODIUM 5,000 UNITS/ML VIAL 3000 UNITS IV PUSH (22:32)
[2023-08-15] VITALS (23 sets, daily range): BP systolic 98–147; BP diastolic 46–60; PULSE 57–75; RESP 12–21; TEMP 36.6–36.9; O2SAT 94–99
[2023-08-15 05:01] LABS: Anion Gap 6 mmol/L (8-16); Blood Urea Nitrogen 17 mg/dL (9-20); Calcium 9.1 mg/dL (8.4-10.2); Carbon Dioxide 27 mmol/L (22-30); Chloride 104 mmol/L (98-107); Estimated CRCL calculation 98 ml/min; Estimated Glomerular Filt Rate > 60; Glucose 117 mg/dL (65-110); Potassium 4.6 mmol/L (3.4-5.0); Sodium 137 mmol/L (137-145)
[2023-08-15 05:03] LABS: Partial Thromboplastin Time 106.8 SECONDS (22.3-36.8)
[2023-08-15] MEDS: NITROGLYCERIN OINTMENT 1 INCH DOSE TRANSDERM ×4 (05:20→23:26)
[2023-08-15] MEDS: SUCRALFATE SUSP 100 MG/ML 10 ML UDC 500 MG PO ×3 (05:21→16:18)
[2023-08-15 07:39] LABS: Glucose Point of Care 124 mg/dl (65-105)
[2023-08-15] MEDS: HEPARIN SOD/D5W 100 UNITS/ML 25,000 UNITS/250 ML BAG 11 UNITS IV CONT (08:04)
[2023-08-15] MEDS: ISOSORBIDE MONONITRATE 30 MG TAB.ER.24H PO (08:09)
[2023-08-15] MEDS: polyethylene glycoL 3350 17 GM POWD.PACK PO (08:09)
[2023-08-15] MEDS: FERROUS SULFATE 325 MG TABLET DR PO ×2 (08:09→17:54)
[2023-08-15] MEDS: CLOPIDOGREL BISULFATE 75 MG TABLET PO (08:09)
[2023-08-15] MEDS: ASPIRIN 81 MG ENTERIC TABLET PO (08:09)
[2023-08-15] MEDS: CHOLECALCIFEROL 1,000 UNITS TABLET 2000 UNITS PO (08:09)
[2023-08-15] MEDS: METOPROLOL TARTRATE 50 MG TAB PO ×2 (08:10→19:51)
[2023-08-15] MEDS: lisinopriL 10 MG TABLET PO (08:10)
[2023-08-15] MEDS: EMPAGLIFLOZIN 25 MG TABLET PO (08:10)
[2023-08-15] MEDS: CYANOCOBALAMIN 1,000 MCG TABLET 1000 MCG BY MOUTH (08:10)
[2023-08-15] MEDS: VITAMIN B COMPLEX CAPSULE 1 CAP PO (08:10)
[2023-08-15] MEDS: PANTOPRAZOLE 40 MG TABLET PO (08:10)
[2023-08-15] MEDS: MULTIVITAMINS /C LUTEIN (CENTRUM SILVER) TABLET *BKC 1 TAB PO (08:10)
[2023-08-15 11:23] LABS: Basophils Absolute Auto 0.1 K/mm3 (0.0-0.1); Basophils Percent Auto 0.8 % (0.2-1.2); Eosinophils Absolute Auto 0.2 K/mm3 (0-0.3); Eosinophils Percent Auto 2.9 % (0-4.4); Hemoglobin 9.9 g/dL (14.0-18.0); Immature Granulocyte Absolute 0.03 K/mm3 (0.00-0.031); Immature Granulocyte Percent A 0.4 % (0-0.5); Lymphocytes Absolute Auto 2.59 K/mm3 (0.9-3.2); Lymphocytes Percent Auto 34.5 % (18.3-44.2); Mean Corpuscular HGB Conc 28.3 g/dl (32-36); Mean Corpuscular Hemoglobin 20.7 pg (26-34); Mean Corpuscular Volume 73.2 fl (80-100); Mean Platelet Volume 8.7 fl (7.4-10.4); Monocytes Absolute Auto 0.8 K/mm3 (0.1-0.6); Monocytes Percent Auto 11.1 % (2.6-8.5); Neutrophils Absolute Auto 3.8 K/mm3 (1.3-6.7); Neutrophils Percent Auto 50.3 % (45.5-73.1); Platelet Count Result 361 k/mm3 (150-375); Red Blood Count 4.78 M/mm3 (4.6-6.20); Red Cell Distribution Width 20.9 % (11.5-14.5); White Blood Count 7.5 K/mm3 (4.5-10.0)
[2023-08-15 11:35] LABS: Partial Thromboplastin Time 70.8 SECONDS (22.3-36.8)
[2023-08-15 11:38] LABS: Glucose Point of Care 143 mg/dl (65-105)
[2023-08-15] MEDS: HEPARIN SODIUM 5,000 UNITS/ML VIAL 3000 UNITS IV PUSH (11:52)
--- NOTE | 2023-08-15 13:18 | PM.IMPN ---
Progress Note: A&P Assessment and Plan (1) Acute non-ST elevation myocardial infarction (NSTEMI): Code(s): I21.4 - Non-ST elevation (NSTEMI) myocardial infarction Status: Acute (2) GERD (gastroesophageal reflux disease): Qualifiers: Esophagitis presence: esophagitis presence not specified Qualified Code(s): K21.9 - Gastro-esophageal reflux disease without esophagitis Code(s): K21.9 - Gastro-esophageal reflux disease without esophagitis Status: Acute (3) Obstructive sleep apnea: Code(s): G47.33 - Obstructive sleep apnea (adult) (pediatric) Status: Acute (4) Type 2 diabetes mellitus: Qualifiers: Diabetes mellitus predatory animal exterminator insulin use: without predatory animal exterminator use Diabetes mellitus complication status: without complication Qualified Code(s): E11.9 - Type 2 diabetes mellitus without complications Code(s): E11.9 - Type 2 diabetes mellitus without complications Status: Acute (5) Hypertension: Qualifiers: Hypertension type: primary hypertension Qualified Code(s): I10 - Essential (primary) hypertension Code(s): I10 - Essential (primary) hypertension Status: Acute (6) NOE (iron deficiency anemia): Qualifiers: Iron deficiency anemia type: chronic blood loss Qualified Code(s): D50.0 - Iron deficiency anemia secondary to blood loss (chronic) Code(s): D50.9 - Iron deficiency anemia, unspecified Status: Acute Plan Chest pain Patient has history of CAD status post CABG Patient presents with non STEMI. Troponins are continuing to trend upward. Started heparin drip. He received aspirin therapy prior to arrival. continue patient's home Imdur, Plavix metoprolol, lisinopril and lipid agents. Cardiology has been consulted. Patient underwent cardiac catheterization08/14, cardiac catheterization revealed multivessel disease Computer Support Analyst has reach out to the [facility] and [place] for transfer Currently patient is not having any chest pain. pt is accepted by [facility] c/w current meds Essential hypertension continue home metoprolol and AKBAR-inhibitor. TIKA auto titrating CPAP/BiPAP. Glucoses are moderately elevated. place patient on moderate sliding scale insulin with Accu-Cheks and hypoglycemia protocol Chronic anemia Hemoglobin close to baseline Patient has a known history of iron deficiency anemia. He was recently started on iron supplements due to what sounds like chronic losses probably from gastritis. He already has follow-up scheduled for this and is in the process of obtaining a repeat out patient colonoscopy. Subjective Date/time seen: 08/15/23 13:18 Interval history: I saw and examined the patient. Patient denies chest pain, or short of breath. Denies focal weakness, vision change, abdomen pain. Patient afebrile blood pressure stable Exam Narrative: GENERAL: Pleasant, in no acute distress. Well-nourished. - EYES: EOMI. Anicteric. - HENT: Moist mucous membranes. - LUNGS: Clear to auscultation bilaterally, no wheezing, rhonchi, or rales. - CARDIOVASCULAR: Regular rate and rhythm. No murmur. No JVD. - ABDOMEN: Soft, non-tender and non-distended. No palpable masses. - EXTREMITIES: No edema. Peripheral pulses 2+. Non-tender. Needle inserting site in right groin, no hematoma or tenderness - NEUROLOGIC: No focal neurological deficits. CN II-XII grossly intact. - PSYCHIATRIC: Awake, Alert and oriented x 3. Appropriate mood and affect. - SKIN: No rashes or lesions. Warm. - LYMPH: No cervical lymphadenopathy. Objective Data Vital Signs Vital Signs: Vital Signs - 24 hr 08/14/23 14:00 08/14/23 15:00 08/14/23 14:00 Temperature 97.2 F L 97.1 F L Pulse Rate 61 60 64 Respiratory Rate 22 H 18 Blood Pressure 120/44 L 129/48 L Pulse Oximetry 97 97 Oxygen Delivery Fraction of Inspired Oxygen 08/14/23 16:00 08/14/23 16:00 08/14/23 18:00 Temperature 97.7 F Pulse
[2023-08-15 16:21] LABS: Glucose Point of Care 133 mg/dl (65-105)
[2023-08-15 18:24] LABS: Basophils Absolute Auto 0.1 K/mm3 (0.0-0.1); Basophils Percent Auto 0.7 % (0.2-1.2); Eosinophils Absolute Auto 0.3 K/mm3 (0-0.3); Eosinophils Percent Auto 3.5 % (0-4.4); Hematocrit 34.5 % (42.0-52.0); Hemoglobin 9.9 g/dL (14.0-18.0); Immature Granulocyte Absolute 0.02 K/mm3 (0.00-0.031); Immature Granulocyte Percent A 0.3 % (0-0.5); Lymphocytes Percent Auto 42.1 % (18.3-44.2); Mean Corpuscular HGB Conc 28.7 g/dl (32-36); Mean Corpuscular Hemoglobin 20.9 pg (26-34); Mean Corpuscular Volume 72.9 fl (80-100); Monocytes Absolute Auto 0.9 K/mm3 (0.1-0.6); Monocytes Percent Auto 12.2 % (2.6-8.5); Neutrophils Percent Auto 41.2 % (45.5-73.1); Platelet Count Result 370 k/mm3 (150-375); Red Blood Count 4.73 M/mm3 (4.6-6.20); Red Cell Distribution Width 20.9 % (11.5-14.5); White Blood Count 7.4 K/mm3 (4.5-10.0)
[2023-08-15 18:35] LABS: Partial Thromboplastin Time 104.5 SECONDS (22.3-36.8)
[2023-08-15 18:53] LABS: Platelet Estimate Adequate (Adequate)
[2023-08-15 18:54] LABS: Schistocytes Rare (NORMAL)
[2023-08-15 18:55] LABS: Anisocytosis 3+ (NORMAL); Hypochromasia 1+ (NORMAL)
[2023-08-15 19:43] LABS: Glucose Point of Care 169 mg/dl (65-105)
[2023-08-15] MEDS: ATORVASTATIN 40 MG TABLET 80 MG PO (19:51)
--- NOTE | 2023-08-15 22:19 | PC.NURSE ---
08/15/23 Spoke with JEFF White from the [facility] transfer center. States that no bed is available at this time.
[2023-08-16] VITALS (14 sets, daily range): BP systolic 117–143; BP diastolic 55–60; PULSE 58–72; RESP 16–19; TEMP 36.3–36.8; O2SAT 96–100
[2023-08-16 00:42] LABS: Partial Thromboplastin Time 100.9 SECONDS (22.3-36.8)
[2023-08-16] MEDS: NITROGLYCERIN OINTMENT 1 INCH DOSE TRANSDERM ×3 (05:17→17:21)
[2023-08-16] MEDS: HEPARIN SOD/D5W 100 UNITS/ML 25,000 UNITS/250 ML BAG 13 UNITS IV CONT (05:17)
[2023-08-16] MEDS: SUCRALFATE SUSP 100 MG/ML 10 ML UDC 500 MG PO ×3 (05:19→17:21)
[2023-08-16 07:50] LABS: Glucose Point of Care 132 mg/dl (65-105)
[2023-08-16] MEDS: METOPROLOL TARTRATE 50 MG TAB PO ×2 (08:51→20:27)
[2023-08-16] MEDS: VITAMIN B COMPLEX CAPSULE 1 CAP PO (08:51)
[2023-08-16] MEDS: PANTOPRAZOLE 40 MG TABLET PO (08:51)
[2023-08-16] MEDS: MULTIVITAMINS /C LUTEIN (CENTRUM SILVER) TABLET *BKC 1 TAB PO (08:51)
[2023-08-16] MEDS: polyethylene glycoL 3350 17 GM POWD.PACK PO (08:51)
[2023-08-16] MEDS: CLOPIDOGREL BISULFATE 75 MG TABLET PO (08:52)
[2023-08-16] MEDS: CYANOCOBALAMIN 1,000 MCG TABLET 1000 MCG BY MOUTH (08:52)
[2023-08-16] MEDS: ASPIRIN 81 MG ENTERIC TABLET PO (08:52)
[2023-08-16] MEDS: FERROUS SULFATE 325 MG TABLET DR PO ×2 (08:52→17:21)
[2023-08-16] MEDS: CHOLECALCIFEROL 1,000 UNITS TABLET 2000 UNITS PO (08:52)
[2023-08-16] MEDS: lisinopriL 10 MG TABLET PO (08:52)
[2023-08-16] MEDS: EMPAGLIFLOZIN 25 MG TABLET PO (08:52)
[2023-08-16] MEDS: ISOSORBIDE MONONITRATE 30 MG TAB.ER.24H PO (08:52)
[2023-08-16 10:00] LABS: Basophils Absolute Auto 0.1 K/mm3 (0.0-0.1); Basophils Percent Auto 0.8 % (0.2-1.2); Eosinophils Absolute Auto 0.3 K/mm3 (0-0.3); Eosinophils Percent Auto 3.9 % (0-4.4); Hematocrit 35.1 % (42.0-52.0); Hemoglobin 9.9 g/dL (14.0-18.0); Immature Granulocyte Absolute 0.01 K/mm3 (0.00-0.031); Immature Granulocyte Percent A 0.1 % (0-0.5); Lymphocytes Absolute Auto 2.45 K/mm3 (0.9-3.2); Lymphocytes Percent Auto 30.8 % (18.3-44.2); Mean Corpuscular HGB Conc 28.2 g/dl (32-36); Mean Corpuscular Hemoglobin 20.8 pg (26-34); Mean Corpuscular Volume 73.6 fl (80-100); Mean Platelet Volume 9.2 fl (7.4-10.4); Monocytes Absolute Auto 0.8 K/mm3 (0.1-0.6); Monocytes Percent Auto 10.2 % (2.6-8.5); Neutrophils Absolute Auto 4.3 K/mm3 (1.3-6.7); Neutrophils Percent Auto 54.2 % (45.5-73.1); Platelet Count Result 380 k/mm3 (150-375); Red Blood Count 4.77 M/mm3 (4.6-6.20); Red Cell Distribution Width 20.9 % (11.5-14.5)
[2023-08-16 10:40] LABS: Anisocytosis 2+ (NORMAL); Hypochromasia 1+ (NORMAL); Schistocytes None Seen (NORMAL)
[2023-08-16 11:21] LABS: Glucose Point of Care 158 mg/dl (65-105)
[2023-08-16 16:11] LABS: Basophils Absolute Auto 0.1 K/mm3 (0.0-0.1); Basophils Percent Auto 0.7 % (0.2-1.2); Eosinophils Absolute Auto 0.3 K/mm3 (0-0.3); Eosinophils Percent Auto 4.1 % (0-4.4); Hematocrit 34.2 % (42.0-52.0); Hemoglobin 9.7 g/dL (14.0-18.0); Immature Granulocyte Absolute 0.02 K/mm3 (0.00-0.031); Immature Granulocyte Percent A 0.3 % (0-0.5); Lymphocytes Absolute Auto 2.72 K/mm3 (0.9-3.2); Mean Corpuscular HGB Conc 28.4 g/dl (32-36); Mean Platelet Volume 8.7 fl (7.4-10.4); Monocytes Absolute Auto 0.8 K/mm3 (0.1-0.6); Monocytes Percent Auto 11.3 % (2.6-8.5); Neutrophils Absolute Auto 3.4 K/mm3 (1.3-6.7); Neutrophils Percent Auto 46.6 % (45.5-73.1); Platelet Count Result 368 k/mm3 (150-375); Red Blood Count 4.62 M/mm3 (4.6-6.20); Red Cell Distribution Width 21.2 % (11.5-14.5); White Blood Count 7.4 K/mm3 (4.5-10.0)
[2023-08-16 16:34] LABS: Glucose Point of Care 153 mg/dl (65-105)
[2023-08-16 16:39] LABS: Anisocytosis 2+ (NORMAL); Hypochromasia 1+ (NORMAL); Ovalocytes 1+ (NORMAL); Platelet Estimate Adequate (Adequate); Schistocytes None Seen (NORMAL)
--- NOTE | 2023-08-16 16:53 | PM.IMPN ---
Progress Note: A&P Assessment and Plan (1) Acute non-ST elevation myocardial infarction (NSTEMI): Code(s): I21.4 - Non-ST elevation (NSTEMI) myocardial infarction Status: Acute (2) GERD (gastroesophageal reflux disease): Qualifiers: Esophagitis presence: esophagitis presence not specified Qualified Code(s): K21.9 - Gastro-esophageal reflux disease without esophagitis Code(s): K21.9 - Gastro-esophageal reflux disease without esophagitis Status: Acute (3) Obstructive sleep apnea: Code(s): G47.33 - Obstructive sleep apnea (adult) (pediatric) Status: Acute (4) Type 2 diabetes mellitus: Qualifiers: Diabetes mellitus local 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 insulin use: without local 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 use Diabetes mellitus complication status: without complication Qualified Code(s): E11.9 - Type 2 diabetes mellitus without complications Code(s): E11.9 - Type 2 diabetes mellitus without complications Status: Acute (5) Hypertension: Qualifiers: Hypertension type: primary hypertension Qualified Code(s): I10 - Essential (primary) hypertension Code(s): I10 - Essential (primary) hypertension Status: Acute (6) NOE (iron deficiency anemia): Qualifiers: Iron deficiency anemia type: chronic blood loss Qualified Code(s): D50.0 - Iron deficiency anemia secondary to blood loss (chronic) Code(s): D50.9 - Iron deficiency anemia, unspecified Status: Acute Plan Chest pain Patient has history of CAD status post CABG Patient presents with non STEMI. Troponins are continuing to trend upward. Started heparin drip. He received aspirin therapy prior to arrival. continue patient's home Imdur, Plavix metoprolol, lisinopril and lipid agents. Cardiology has been consulted. Patient underwent cardiac catheterization08/14, cardiac catheterization revealed multivessel disease Visc[employer] Cellar Charge Hand has reach out to the [facility] and [place] for transfer Currently patient is not having any chest pain. Also denies shortness breath, abdomen pain, nausea vomiting pt is accepted by [facility] c/w current meds Essential hypertension continue home metoprolol and AKBAR-inhibitor. TIKA auto titrating CPAP/BiPAP. Glucoses are moderately elevated. place patient on moderate sliding scale insulin with Accu-Cheks and hypoglycemia protocol Chronic anemia Hemoglobin close to baseline Patient has a known history of iron deficiency anemia. He was recently started on iron supplements due to what sounds like chronic losses probably from gastritis. He already has follow-up scheduled for this and is in the process of obtaining a repeat out patient colonoscopy. Hemoglobin stable Subjective Date/time seen: 08/16/23 16:53 Interval history: I saw and examined the patient. Patient denies chest pain, or short of breath, palpitation, abdomen pain, nausea vomiting dysuria Exam Narrative: GENERAL: Pleasant, in no acute distress. Well-nourished. - EYES: EOMI. Anicteric. - HENT: Moist mucous membranes. - LUNGS: Clear to auscultation bilaterally, no wheezing, rhonchi, or rales. - CARDIOVASCULAR: Regular rate and rhythm. No murmur. No JVD. - ABDOMEN: Soft, non-tender and non-distended. No palpable masses. - EXTREMITIES: No edema. Peripheral pulses 2+. Non-tender. Needle inserting site in right groin, no hematoma or tenderness - NEUROLOGIC: No focal neurological deficits. CN II-XII grossly intact. - PSYCHIATRIC: Awake, Alert and oriented x 3. Appropriate mood and affect. - SKIN: No rashes or lesions. Warm. - LYMPH: No cervical lymphadenopathy. Objective Data Vital Signs Vital Signs: Vital Signs - 24 hr 08/15/23 18:00 08/15/23 19:43 08/15/23 19:51 Temperature 97.8 F Pulse Rate 66 63 65 Respiratory Rate 18 Blood Pressure 147/52 H Pulse Oximetry 94 Oxygen Delivery Fraction of Inspired Oxygen 08/15/23 19:55 08/15/23 20:00 08/15/23 21:16 Temperature
[2023-08-16] MEDS: ATORVASTATIN 40 MG TABLET 80 MG PO (20:27)
[2023-08-16 20:51] LABS: Glucose Point of Care 159 mg/dl (65-105)
--- NOTE | 2023-08-28 07:21 | PM.TDS ---
Transfer Discharge Sum: Prov Provider Date of admission: 08/13/23 00:16 Primary care physician: Nate Meier APRN Admitting clinician: Renate Navarro DO Consults: 08/13/23 00:17 Consult to Physician Routine Comment: Consulting Provider: Ovidio Villalobos Reason for consultation: NSTEMI Has provider been notified: Yes DS: Admitting Diagnosis Discharge Date 08/16/23 Admitting Diagnosis (1) Acute non-ST elevation myocardial infarction (NSTEMI): ?Code(s): I21.4 - Non-ST elevation (NSTEMI) myocardial infarction ?Status:?Acute (2) GERD (gastroesophageal reflux disease): ?Qualifiers: ?Esophagitis presence:?esophagitis presence not specified? Qualified Code(s):?K21.9 - Gastro-esophageal reflux disease without esophagitis ?Code(s): K21.9 - Gastro-esophageal reflux disease without esophagitis ?Status:?Acute (3) Obstructive sleep apnea: ?Code(s): G47.33 - Obstructive sleep apnea (adult) (pediatric) ?Status:?Acute (4) Type 2 diabetes mellitus: ?Qualifiers: ?Diabetes mellitus jail insulin use:?without intermediate card tender use??Diabetes mellitus complication status:?without complication? Qualified Code(s):?E11.9 - Type 2 diabetes mellitus without complications ?Code(s): E11.9 - Type 2 diabetes mellitus without complications ?Status:?Acute (5) Hypertension: ?Qualifiers: ?Hypertension type:?primary hypertension? Qualified Code(s):?I10 - Essential (primary) hypertension ?Code(s): I10 - Essential (primary) hypertension ?Status:?Acute (6) NOE (iron deficiency anemia): ?Qualifiers: ?Iron deficiency anemia type:?chronic blood loss? Qualified Code(s):?D50.0 - Iron deficiency anemia secondary to blood loss (chronic) ?Code(s): D50.9 - Iron deficiency anemia, unspecified ?Status:?Acute DS: Discharge Diagnosis Discharge Diagnosis (1) Acute non-ST elevation myocardial infarction (NSTEMI): Code(s): I21.4 - Non-ST elevation (NSTEMI) myocardial infarction Status: Acute (2) GERD (gastroesophageal reflux disease): Qualifiers: Esophagitis presence: esophagitis presence not specified Qualified Code(s): K21.9 - Gastro-esophageal reflux disease without esophagitis Code(s): K21.9 - Gastro-esophageal reflux disease without esophagitis Status: Acute (3) Obstructive sleep apnea: Code(s): G47.33 - Obstructive sleep apnea (adult) (pediatric) Status: Acute (4) Type 2 diabetes mellitus: Qualifiers: Diabetes mellitus jail insulin use: without jail use Diabetes mellitus complication status: without complication Qualified Code(s): E11.9 - Type 2 diabetes mellitus without complications Code(s): E11.9 - Type 2 diabetes mellitus without complications Status: Acute (5) Hypertension: Qualifiers: Hypertension type: primary hypertension Qualified Code(s): I10 - Essential (primary) hypertension Code(s): I10 - Essential (primary) hypertension Status: Acute (6) NOE (iron deficiency anemia): Qualifiers: Iron deficiency anemia type: chronic blood loss Qualified Code(s): D50.0 - Iron deficiency anemia secondary to blood loss (chronic) Code(s): D50.9 - Iron deficiency anemia, unspecified Status: Acute Transfer Discharge Sum: Med Medications Active and Home Medications: Home Medications aspirin 81 mg tablet 81 mg PO DAILY 02/05/21 [History Confirmed 08/13/23] lisinopril 20 mg tablet 10 mg PO DAILY 02/05/21 [History Confirmed 08/13/23] multivit with minerals-iron 18 mg-folic ac 400 mcg-vit K 25 mcg tablet (Adults Multivitamin) 1 tablet PO DAILY 02/05/21 [History Confirmed 08/13/23] omeprazole 20 mg capsule,delayed release 20 mg PO DAILY 02/05/21 [History Confirmed 08/13/23] acetaminophen 500 mg tablet 1,000 mg PO QID PRN Pain 08/22/22 [History Confirmed 08/13/23] polyethylene glycol 3350 17 gram/dose or
== END 2023-08-16 21:44 | disposition short-term general hospital (02) | DRG 282 ==
LOC: ANHED 08-13 00:19 → ANHIMU 08-13 01:23
PROVIDERS: Family Medicine; Internal Medicine Cardiovascular Disease; Specialist; Student in an Organized Health Care Education/Training Program; Admitting Provider Internal Medicine; Emergency Provider Emergency Medicine; PCP Nurse Practitioner; Visit Provider Hospitalist
PROC: 4A023N7 Measurement of Cardiac Sampling and Pressure, Left Heart, Percutaneous Approach (ICD-10-PCS; CPT 93459; principal; 2023-08-14 12:00)
DX: I21.4 Non-ST elevation (NSTEMI) myocardial infarction (principal); I24.9 Acute ischemic heart disease, unspecified; D50.9 Iron deficiency anemia, unspecified; E78.5 Hyperlipidemia, unspecified; E11.9 Type 2 diabetes mellitus without complications; G47.33 Obstructive sleep apnea (adult) (pediatric); I25.2 Old myocardial infarction; I25.10 Atherosclerotic heart disease of native coronary artery without angina pectoris; I10 Essential (primary) hypertension; K21.9 Gastro-esophageal reflux disease without esophagitis; K57.90 Diverticulosis of intestine, part unspecified, without perforation or abscess without bleeding; M79.89 Other specified soft tissue disorders; Z85.828 Personal history of other malignant neoplasm of skin; Z91.198 Patient's noncompliance with other medical treatment and regimen for other reason; Z95.5 Presence of coronary angioplasty implant and graft; Z95.1 Presence of aortocoronary bypass graft; Z79.82 Long term (current) use of aspirin; Z79.02 Long term (current) use of antithrombotics/antiplatelets; Z79.84 Long term (current) use of oral hypoglycemic drugs; Z87.891 Personal history of nicotine dependence
CPT/HCPCS: 36415; 71046; 80048; 80053; 82948; 83690; 83880; 84484; 85025; 85610; 85730; 93005; 93459; 96374; 96375; 99285; A9270; C1769; C1887; C1894; C8929; J0461; J1644; J2250; J2270; J3010; J7030; J7040; Q9957

== ENCOUNTER 2023-12-14 14:55 | Inpatient (IN) | payer MEDICARE, SELFPAY ==
[2023-12-14] VITALS (12 sets, daily range): BP systolic 136–166; BP diastolic 48–63; PULSE 76–93; RESP 14–20; TEMP 36.8–37.9; O2SAT 94–98
--- NOTE | ~2023-12-14 | XR_ITS ---
Portable chest x-ray Comparison: 12/14/2023 Clinical History: Pneumonia Findings: Lungs are clear, without focal consolidation or pleural effusion. Cardiomediastinal silho uette is stable. Bones and soft tissues are unremarkable. Impression: Clear lungs. Reviewed, dictated and finalized at location . DROMAT WORKER Impression: Clear lungs.
--- NOTE | ~2023-12-14 | CT_ITS ---
EXAMINATION: CT diagnostic chest wo con DATE: 12/14/2023 23:42 INDICATION: fever, productive cough TECHNIQUE: Computed tomography (CT) of the chest was performed with 100 mL Omnipaque-350 intravenous contrast. Automated exposure control and iterative reconstruction technique were employed. The dose-l ength product was 642.35 mGy-cm. COMPARISON: X-ray chest, same date. FINDINGS: CHEST: Thoracic aorta: No dilation. Moderate arch calcification. Lung parenchyma and airways: Left lower lobe tree-in-bud opacities. Scattered tree-in-bud opacities s een to much lesser extent in the right lower lobe. 4.1 cm left lower lobe air cyst. Scattered sub-6 m m pulmonary nodules. Thoracic inlet, axillae and chest wall: Status post CABG. No thyroid or soft tissue mass. No axillary lymphadenopathy. Mediastinum: Mediastinal and bilateral hilar lymphadenopathy. Heart and pericardium: Normal heart size. No pericardial effusion. Coronary artery calcifications: Moderate. Pleura: No effusion or mass. Upper abdomen: No significant finding. Thoracic bones: No acute osseous finding in the chest. IMPRESSION: Tree-in-bud opacities, predominantly in the left lower lobe, as can be seen with atypical infection ( MAC, TB, fungal), ABPA, airways disease and aspiration. Mediastinal and bilateral hilar lymphadenopathy. Multiple sub-6 mm pulmonary nodules, which require no additional evaluation unless the patient has a history of cancer, in which case consider an optional follow-up low-dose noncontrast CT of the chest in 12 months. Reviewed, dictated and finalized at location K. ZEL PACKER IMPRESSION: Tree-in-bud opacities, predominantly in the left lower lobe, as can be seen wit h atypical infection (MAC, TB, fungal), ABPA, airways disease and aspiration. Mediastinal and bilateral hilar lymphadenopathy. Multiple sub-6 mm pulmonary nodules, which require no additional evaluation unl ess the patient has a history of cancer, in which case consider an optional fol low-up low-dose noncontrast CT of the chest in 12 months.
--- NOTE | ~2023-12-14 | XR_ITS ---
EXAMINATION: XR chest 2V DATE: 12/14/2023 16:47 INDICATION: Cough. Shortness of breath. Chest pain. TECHNIQUE: Frontal and lateral views of the chest were obtained. COMPARISON: Chest 2 views 08/12/2023, CT abdomen and pelvis 06/15/2022 FINDINGS: There is mild atelectasis in left lower lung zone. No pleural effusion or pneumothorax. The heart size is normal. Median sternotomy wires and mediastinal surgical clips are seen, likely from p rior coronary artery bypass grafting. IMPRESSION: 1. Mild atelectasis in left lower lung zone. Reviewed, dictated and finalized at location A. ING BALL MOLDER
--- NOTE | 2023-12-14 15:20 | ECG_ITS ---
Measurements Intervals [place] Rate: 78 P: 43 CA: 156 QRS: -17 QRSD: 86 T: 23 QT: 369 QTc: 423 Interpretive Statements SINUS RHYTHM INCOMPLETE RIGHT BUNDLE BRANCH BLOCK CONSIDER ANTERIOR INFARCT, AGE INDETERMINATE CONSIDER INFERIOR INFARCT, AGE INDETERMINATE BORDERLINE ST-T WAVE ABNORMALITY- HIGH LATERAL LEADS BASELINE ARTIFACT- I, III, AVR, AVL, AVF, V4-V5 ABNORMAL ECG COMPARED TO ECG 08/12/2023 22:19:47 NO SIGNIFICANT CHANGES Electronically Signed On 12-14-2023 17:01:39 OFFICE ASSISTANT by Michele Pardo D.O.
--- NOTE | 2023-12-14 16:03 | ED.GENADULT ---
HPI - General Adult General Chief complaint: Upper Respiratory Infection <Peyton Roberts, MANAGEMENT TRAINEE PROGRAM [employer]ORES - Last Filed: 12/14/23 16:07> Stated complaint: coughing <Peyton Roberts, MANAGEMENT TRAINEE PROGRAM STORES - Last Filed: 12/14/23 16:07> Time Seen by Provider: 12/14/23 22:31 <Peyton Roberts, MANAGEMENT TRAINEE PROGRAM STORES - Last Filed: 12/14/23 16:07> History of Present Illness HPI narrative: Focused HPI: 1603 Sergey Franks is a 68 y/o male who presents with complaints of productive green sputum for almost two weeks, he states that the the cough is starting to make his chest hurt unsure about fevers but he takes Tylenol regularly for a broken tooth. He is also on Plavix due to being S/P 5 cardiac stents. He states that he is concerned that he might have pneumonia- reports SOB with the cough. GENERAL: Well-appearing, well-nourished, and in no acute distress. HEAD: Normocephalic, atraumatic. CHEST: Clear to auscultation. ?No respiratory distress. HEART: Regular rate and rhythm.? NEURO: ?Alert and oriented x3. Patient screened in triage and initial orders placed.? ?Additional care and disposition to be based upon?diagnostic testing and treatment. <Peyton Roberts, MANAGEMENT TRAINEE PROGRAM [employer]ORES - Last Filed: 12/14/23 16:07> Related Data Home medications: Home Medications Medication Instructions Recorded Confirmed aspirin 81 mg tablet 81 mg PO DAILY 02/05/21 08/13/23 lisinopril 20 mg tablet 10 mg PO DAILY 02/05/21 08/13/23 multivit with minerals-iron 18 1 tablet PO DAILY 02/05/21 08/13/23 mg-folic ac 400 mcg-vit K 25 mcg tablet (Adults Multivitamin) omeprazole 20 mg capsule,delayed 20 mg PO DAILY 02/05/21 08/13/23 release acetaminophen 500 mg tablet 1,000 mg PO QID PRN Pain 08/22/22 08/13/23 polyethylene glycol 3350 17 17 g PO DAILY 08/22/22 08/13/23 gram/dose oral powder cholecalciferol (vitamin D3) 50 50 mcg PO DAILY 12/24/22 08/13/23 mcg (2,000 unit) capsule coenzyme Q10 75 mg capsule (Ultra 75 mg PO DAILY 12/24/22 08/13/23 CoQ10) cranberry 500 mg capsule 500 mg PO DAILY 12/24/22 08/13/23 mecobalamin (vitamin B12) 1,000 1,000 mcg sublingual DAILY 12/24/22 08/13/23 mcg disintegrating tablet,sublingual vitamin B complex 1 tablet PO DAILY 12/24/22 08/13/23 atorvastatin 80 mg tablet 80 mg PO HS 06/15/23 08/13/23 empagliflozin 25 mg tablet 25 mg PO DAILY 06/15/23 08/13/23 metoprolol tartrate 100 mg tablet 50 mg PO Q12H 06/15/23 08/13/23 cinnamon bark 500 mg capsule 1,000 mg PO DAILY 08/13/23 08/13/23 (Cinnamon) isosorbide mononitrate 30 mg 30 mg PO DAILY 08/13/23 08/13/23 tablet,extended release 24 hr krill oil 500 mg capsule 500 mg PO DAILY 08/13/23 08/13/23 metformin 1,000 mg tablet See Rx Instructions .Route .COMPLEX 08/13/23 08/13/23 <Peyton Roberts, MANAGEMENT TRAINEE [employer]GRAM [employer]ORES - Last Filed: 12/14/23 16:07> Allergies/adverse reactions: Allergies Allergy/AdvReac Type Severity Reaction Status Date / Time No Known Allergies Allergy Verified 12/14/23 14:55 <Peyton Thompson March, MANAGEMENT TRAINEE [employer]ES - Last Filed: 12/14/23 16:07> Review of Systems Review of Systems: CONSTITUTIONAL: Reports fever ENT: Reports rhinorrhea, congestion CARDIOVASCULAR: Reports chest pain. Denies edema. RESPIRATORY: Reports cough and dyspnea. <Claudia Downey PA-C - Last Filed: 12/15/23 02:25> All systems reviewed & are unremarkable except as noted in HPI and below <Claudia Downey PA-C - Last Filed: 12/15/23 02:25> [facility] Past Medical History Medical History: Medical History Carotid stenosis Bilateral 50-69% noted on Doppler 12/2022 with CTA demonstrate 18% stenosis of the right internal carotid and 43% stenosis of the left Coronary artery disease Diverticulitis Diverticulosis Gastritis GERD (gastroesophageal reflux disease) Hyperlipidemia Hypertension NOE (iron deficiency anemia) Obstructive sleep apnea Skin cancer Type 2 diabetes mellitus <Peyton Thompson March, MANAGEMENT TRAINEE PROGRAM STORES - Last Filed: 12/14/23 16:07> Surgical History Surgical History: Surgic
[2023-12-14 17:29] LABS: Basophils Absolute Auto 0.1 K/mm3 (0.0-0.1); Basophils Percent Auto 0.6 % (0.2-1.2); Eosinophils Absolute Auto 0.3 K/mm3 (0-0.3); Eosinophils Percent Auto 2.3 % (0-4.4); Hematocrit 35.9 % (42.0-52.0); Hemoglobin 10.7 g/dL (14.0-18.0); Immature Granulocyte Absolute 0.03 K/mm3 (0.00-0.031); Immature Granulocyte Percent A 0.2 % (0-0.5); Lymphocytes Absolute Auto 2.36 K/mm3 (0.9-3.2); Lymphocytes Percent Auto 19.2 % (18.3-44.2); Mean Corpuscular HGB Conc 29.8 g/dl (32-36); Mean Corpuscular Hemoglobin 22.6 pg (26-34); Mean Corpuscular Volume 75.7 fl (80-100); Mean Platelet Volume 8.6 fl (7.4-10.4); Monocytes Absolute Auto 1.2 K/mm3 (0.1-0.6); Monocytes Percent Auto 9.7 % (2.6-8.5); Neutrophils Absolute Auto 8.4 K/mm3 (1.3-6.7); Platelet Count Result 360 k/mm3 (150-375); Red Blood Count 4.74 M/mm3 (4.6-6.20); Red Cell Distribution Width 23.3 % (11.5-14.5); White Blood Count 12.3 K/mm3 (4.5-10.0)
[2023-12-14 17:41] LABS: Alanine Aminotransferase 19 U/L (6-50); Albumin Level 4.3 g/dL (3.5-5.1); Alkaline Phosphatase 52 U/L (38-126); Anion Gap 11 mmol/L (8-16); Aspartate Amino Transferase 30 U/L (17-59); Bilirubin,Total 0.6 mg/dL (0.2-1.3); Blood Urea Nitrogen 16 mg/dL (9-20); Calcium 9.2 mg/dL (8.4-10.2); Carbon Dioxide 22 mmol/L (22-30); Chloride 106 mmol/L (98-107); Estimated CRCL calculation 109 ml/min; Estimated Glomerular Filt Rate > 60; Glucose 146 mg/dL (65-110); Magnesium 2.1 mg/dL (1.6-2.3); Potassium 4.3 mmol/L (3.4-5.0); Sodium 139 mmol/L (137-145)
[2023-12-14 17:44] LABS: Anisocytosis 1+ (NORMAL); Hypochromasia 1+ (NORMAL); Ovalocytes 1+ (NORMAL); Platelet Estimate Adequate (Adequate); Schistocytes None Seen (NORMAL)
[2023-12-14 17:52] LABS: Troponin I 0.024 ng/mL (0.000-0.034)
[2023-12-14 18:05] LABS: Influenza A QL RT-PCR Negative (Negative); Influenza B QL RT-PCR Negative (Negative); RSV RNA, RT-PCR Negative (Negative); SARS-CoV-2 RNA PCR Negative (Negative)
[2023-12-14] MEDS: ACETAMINOPHEN 500 MG TABLET 1000 MG PO (22:42)
[2023-12-14 23:25] LABS: Lactic Acid Reflex 1.1 mmol/L (0.7-2.0)
[2023-12-14 23:29] LABS: D Dimer 0.32 ug/mL (<0.48)
[2023-12-14 23:49] LABS: Troponin I 0.079 ng/mL (0.000-0.034)
[2023-12-15] VITALS (24 sets, daily range): BP systolic 92–142; BP diastolic 46–68; PULSE 49–89; RESP 13–24; TEMP 36.4–37.1; O2SAT 93–99; BMI 35.8
[2023-12-15] MEDS: ONDANSETRON INJ 4 MG/2 ML VIAL IV PUSH (00:21)
[2023-12-15] MEDS: MORPHINE SULFATE (*CRX) 4 MG/ML INJ IV PUSH (00:22)
[2023-12-15] MEDS: AZITHROMYCIN 500 MG/NS 250 ML 500 MG/250 ML BAG 250 MG IVPB (01:10)
--- NOTE | 2023-12-15 02:03 | ADMGEN ---
This patient, Sergey Franks, was admitted to Intensive Care Unit-2. Patient/family oriented to hospital policies and general routines including ID bracelet, bed and alarms, visiting hours, pain management, procedures, bathroom and other care routines, personal items, smoking policy, room service/diet, and visiting hours. Information on how to activate the Rapid Response Team has been discussed. Patient/Family are encouraged to report perceived risks to care and to ask questions if they do not understand what they are told or what they should do.
[2023-12-15 02:32] LABS: Troponin I 0.123 ng/mL (0.000-0.034)
[2023-12-15 03:17] LABS: Cholesterol 133 mg/dL (0-200)
[2023-12-15 04:31] LABS: LDL Cholesterol Direct 66 mg/dL
[2023-12-15 04:57] LABS: Triglycerides 164 mg/dL (<150)
--- NOTE | 2023-12-15 09:48 | PM.IMHP ---
H&P: HPI History of Present Illness Date/Time: 12/15/23 09:48 Chief Complaint: Patient came to the ER for evaluation of his cough with greenish sputum Narrative: He is a pleasant 68 years old white male with known CAD status post 5 cardiac stents at [facility] in August 2023. He is complaining of cough for the last 10 days which is slowly worsening. He started having greenish sputum 3 days ago as well. He did not see any medical doctor and waited in hope that his medical condition would get better. Finally he got weak, tired and fatigued and came to the ER for evaluation. Workup was done which showed left lower lobe pneumonia. He also had some borderline at to cardiac enzymes. He denies any chest pain, palpitations sweating her or abdominal pain. He was started on IV antibiotics and given his the significant medical history for CAD, being admitted to IMU for medical management, tele monitoring, Cardiology evaluation and further workup. Review of Systems Review of Systems: 14 systems were reviewed with pertinent positives and negatives per HPI. Except as documented in the HPI/progress notes, all other systems were reviewed and are negative. All systems reviewed & are unremarkable except as noted in HPI and below PMFSH Past Medical History Medical History Carotid stenosis Bilateral 50-69% noted on Doppler 12/2022 with CTA demonstrate 18% stenosis of the right internal carotid and 43% stenosis of the left Coronary artery disease Diverticulitis Diverticulosis Gastritis GERD (gastroesophageal reflux disease) Hyperlipidemia Hypertension NOE (iron deficiency anemia) Obstructive sleep apnea Skin cancer Type 2 diabetes mellitus Surgical History Surgical History History of cardiac catheterization History of colonoscopy with polypectomy History of coronary artery bypass graft (12/2010) Family History Family History Father Family history of congestive heart failure Diabetes mellitus Mother Diabetes mellitus Sibling Hypothyroidism Social History Social History Social History: Patient lives with his . They were in 1990. They have 3 small dogs and 2 cats. He does not have any biologic children. He used to smoke up to 1.5 packs of cigarettes per day from the time was a teenager until 2000. He used to drink heavily drinking 6-8 beers 3 times a week but quit drinking alcohol in 1991. He denies illicit substance use. He served in the [employer] for 10 years. 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 Surrogate medical decision maker: Cristy Mace, spouse. Code status: Full code. 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
[2023-12-15] MEDS: ASPIRIN 81 MG CHEWABLE TABLET PO (10:58)
[2023-12-15] MEDS: ACETAMINOPHEN 500 MG TABLET 1000 MG PO ×2 (10:58→16:50)
[2023-12-15] MEDS: EZETIMIBE 10 MG TABLET PO (10:58)
[2023-12-15 11:01] LABS: Magnesium 2.1 mg/dL (1.6-2.3); Phosphorus 3.4 mg/dL (2.5-4.5)
[2023-12-15] MEDS: CHOLECALCIFEROL 1,000 UNITS TABLET 2000 UNITS PO (11:01)
[2023-12-15] MEDS: METOPROLOL TARTRATE 50 MG TAB PO ×2 (11:01→20:09)
[2023-12-15] MEDS: CYANOCOBALAMIN 1,000 MCG TABLET 1000 MCG PO (11:01)
[2023-12-15] MEDS: ISOSORBIDE MONONITRATE 30 MG TAB.ER.24H PO (11:01)
[2023-12-15] MEDS: lisinopriL 10 MG TABLET PO (11:01)
[2023-12-15] MEDS: EMPAGLIFLOZIN 25 MG TABLET PO (11:02)
[2023-12-15 11:15] LABS: Glucose Point of Care 161 mg/dl (65-105)
[2023-12-15 11:15] LABS: Troponin I 0.361 ng/mL (0.000-0.034)
[2023-12-15 11:42] LABS: HDL Direct 35 mg/dL
[2023-12-15 16:57] LABS: Glucose Point of Care 130 mg/dl (65-105)
[2023-12-15] MEDS: ATORVASTATIN 40 MG TABLET 80 MG PO (20:09)
[2023-12-15 20:22] LABS: Glucose Point of Care 154 mg/dl (65-105)
[2023-12-16] VITALS (16 sets, daily range): BP systolic 122–156; BP diastolic 53–100; PULSE 51–71; RESP 15–22; TEMP 36.6–36.9; O2SAT 91–98
[2023-12-16] MEDS: ACETAMINOPHEN 500 MG TABLET 1000 MG PO ×3 (00:13→20:14)
[2023-12-16 03:58] LABS: Basophils Absolute Auto 0.1 K/mm3 (0.0-0.1); Basophils Percent Auto 0.7 % (0.2-1.2); Eosinophils Absolute Auto 0.4 K/mm3 (0-0.3); Eosinophils Percent Auto 4.5 % (0-4.4); Hematocrit 34.1 % (42.0-52.0); Hemoglobin 9.8 g/dL (14.0-18.0); Immature Granulocyte Absolute 0.03 K/mm3 (0.00-0.031); Immature Granulocyte Percent A 0.4 % (0-0.5); Lymphocytes Percent Auto 29.1 % (18.3-44.2); Mean Corpuscular HGB Conc 28.7 g/dl (32-36); Mean Corpuscular Hemoglobin 22.7 pg (26-34); Mean Corpuscular Volume 78.9 fl (80-100); Mean Platelet Volume 8.9 fl (7.4-10.4); Monocytes Absolute Auto 0.9 K/mm3 (0.1-0.6); Monocytes Percent Auto 11.2 % (2.6-8.5); Neutrophils Absolute Auto 4.5 K/mm3 (1.3-6.7); Neutrophils Percent Auto 54.1 % (45.5-73.1); Platelet Count Result 316 k/mm3 (150-375); Red Blood Count 4.32 M/mm3 (4.6-6.20); Red Cell Distribution Width 24.1 % (11.5-14.5); White Blood Count 8.2 K/mm3 (4.5-10.0)
[2023-12-16 04:14] LABS: Anion Gap 7 mmol/L (8-16); Blood Urea Nitrogen 18 mg/dL (9-20); Calcium 8.8 mg/dL (8.4-10.2); Carbon Dioxide 25 mmol/L (22-30); Chloride 104 mmol/L (98-107); Estimated CRCL calculation 111 ml/min; Estimated Glomerular Filt Rate > 60; Glucose 111 mg/dL (65-110); Potassium 4.3 mmol/L (3.4-5.0); Sodium 136 mmol/L (137-145)
[2023-12-16 04:50] LABS: Hypochromasia 1+ (NORMAL); Platelet Estimate Adequate (Adequate)
[2023-12-16 04:51] LABS: Anisocytosis 1+ (NORMAL); Ovalocytes 1+ (NORMAL); Schistocytes None Seen (NORMAL)
[2023-12-16 07:30] LABS: Glucose Point of Care 96 mg/dl (65-105)
[2023-12-16] MEDS: ISOSORBIDE MONONITRATE 30 MG TAB.ER.24H PO (08:53)
[2023-12-16] MEDS: polyethylene glycoL 3350 17 GM POWD.PACK PO (08:53)
[2023-12-16] MEDS: ENOXAPARIN 40 MG/0.4 ML SYRINGE SUB-Q (08:53)
[2023-12-16] MEDS: VITAMIN B COMPLEX CAPSULE 1 CAP PO (08:53)
[2023-12-16] MEDS: ASPIRIN 81 MG CHEWABLE TABLET PO (08:53)
[2023-12-16] MEDS: MULTIVITAMINS /C LUTEIN (CENTRUM SILVER) TABLET *BKC 1 TAB PO (08:53)
[2023-12-16] MEDS: lisinopriL 10 MG TABLET PO (08:53)
[2023-12-16] MEDS: METOPROLOL TARTRATE 50 MG TAB PO ×2 (08:53→20:14)
[2023-12-16] MEDS: CHOLECALCIFEROL 1,000 UNITS TABLET 2000 UNITS PO (08:53)
[2023-12-16] MEDS: EMPAGLIFLOZIN 25 MG TABLET PO (08:53)
[2023-12-16] MEDS: CYANOCOBALAMIN 1,000 MCG TABLET 1000 MCG PO (08:53)
[2023-12-16] MEDS: CLOPIDOGREL BISULFATE 75 MG TABLET PO (08:53)
[2023-12-16] MEDS: PANTOPRAZOLE 40 MG TABLET PO (08:53)
[2023-12-16] MEDS: EZETIMIBE 10 MG TABLET PO (08:53)
[2023-12-16 09:30] LABS: Iron 43 ug/dL (49-181)
[2023-12-16 09:39] LABS: Percent Iron Saturation 11 % (20-50)
--- NOTE | 2023-12-16 11:19 | PM.CNPUL ---
Assessment and Plan Assessment and plan (1) Pneumonia: Qualifiers: Laterality: left Lung location: lower lobe of lung Pneumonia type: due to unspecified organism Qualified Code(s): J18.9 - Pneumonia, unspecified organism Code(s): J18.9 - Pneumonia, unspecified organism Status: Acute Assessment and Plan: Patient presents with a 10 day history of respiratory illness. His had the same illness. He had a leukocytosis, fever and a CT scan with tree-in-bud infiltrates left lower lobe greater than right (new since CT abdomen 06/15/2022). He was treated with ceftriaxone and azithromycin and has clinically improved. 12/16/23: Patient tells me he is much improved. Currently the patient tells me that his pain is resolved 100% better. Wheezes are resolved, 100% better. His cough is not 50% better. He is actually making more phlegm but it is thinner and now light yellow, he is afebrile. His white blood cell count is 8.2, his creatinine is 0.6. Currently the patient is on 1.5 L nasal cannula oxygen with saturations 98%. I turned the oxygen off and 10 minutes later saturations were 94%. Blood cultures are negative. Sputum culture is pending. I do not believe this is tuberculosis or atypical mycobacterial disease. Plan: His antibiotics were not continued from the ED to in the hospital and I have written for ceftriaxone and azithromycin. I will repeat a chest x-ray to reassess his left lower lobe infiltrate to document stability. I will send a mycoplasma IgM, urine Legionella, urine pneumococcal and extended respiratory pathogen panel to try to identify a etiology. I suspect this is a viral infection with a viral bronchiolitis resulting in tree-in-bud infiltrates. He does not need respiratory precautions for tuberculosis or atypical mycobacterial disease. I will send a QuantiFERON gold test. If he remains stable overnight anticipate discharge from a pulmonary perspective on 12/17/2023. Discussed with Dr. Leung, will follow with you. (2) Obstructive sleep apnea: Code(s): G47.33 - Obstructive sleep apnea (adult) (pediatric) Status: Acute Assessment and Plan: The patient tells me is diagnosed with obstructive sleep apnea in 2012 and wore CPAP machine religiously and this gave him improvement up until about 3 years ago when his machine broke and then it was recalled. He never got a new machine. He the in the room tells me [facility]. This was never performed. The patient has lost weight at his peak he was 260 he lost weight to 200 and now weighs 220. The sleeps in a separate room and states she is unaware of any witnessed sleep apneas. His snoring is better and he has no daytime hypersomnia. Plan: I will perform an overnight oximetry on room air to assess his oxygen at night. The patient will need an outpatient sleep study to determine if he still has sleep apnea and what his optimal CPAP pressures would be. History of Present Illness History of Present Illness Consult date: 12/16/23 Chief complaint: Pneumonia, Chest Pain Narrative: 12/16/2023: This is a new pulmonary consult for pneumonia. 68-year-old with a history of hypertension, hyperlipidemia, coronary artery disease status post CABG in 2010 and 5 stents in August of 2023, obstructive sleep apnea diagnosed in 2012 his machine broke 3 years ago and he has not been on the machine. Patient was in his usual state of health with no respiratory limitations in his activities of daily living. States he can walk an unlimited distance. 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 On approximately 12/05/2023 the patient developed dry cough, shortness of breath. His also had the same dry cough and they both felt they had the flu. They did not do any testing. Symptoms progressed and he developed green sputum, wheezing, and shortness of breath. Patient patient had paroxysmal coughing spells that produced some mark
[2023-12-16 11:55] LABS: Glucose Point of Care 141 mg/dl (65-105)
[2023-12-16] MEDS: AZITHROMYCIN 500 MG/NS 250 ML 500 MG/250 ML BAG 250 MG IVPB (12:05)
[2023-12-16 16:08] LABS: Glucose Point of Care 96 mg/dl (65-105)
--- NOTE | 2023-12-16 16:14 | PM.CNCAR ---
Assessment and Plan Assessment and plan (1) Elevated troponin: Code(s): R79.89 - Other specified abnormal findings of blood chemistry Status: Acute Assessment and Plan: Has known complex coronary artery disease s/p CABG and multiple subsequent PCIs. EKGs are without ischemic changes. No anginal symptoms (gets chest pain only with coughing). Likely demand ischemia from his pneumonia rather than an acute coronary syndrome. Recommend to continue home ASA, Plavix, statin, antianginal therapy regimen. No additional cardiac evaluation at this time. Patient to follow up with his primary reimbursement manager at the [place] after hospital discharge. (2) Pneumonia: Qualifiers: Laterality: left Lung location: lower lobe of lung Pneumonia type: due to unspecified organism Qualified Code(s): J18.9 - Pneumonia, unspecified organism Code(s): J18.9 - Pneumonia, unspecified organism Status: Acute Assessment and Plan: Treatment as per Pulmonary and primary team. (3) Coronary artery disease: Qualifiers: Coronary Disease-Associated Artery/Lesion type: [place] artery [place] vs. transplanted heart: [place] heart Associated angina: with stable angina Qualified Code(s): I25.118 - Atherosclerotic heart disease of [place] coronary artery with other forms of angina pectoris Code(s): I25.10 - Atherosclerotic heart disease of [place] coronary artery without angina pectoris Status: Acute Assessment and Plan: Recommend to continue home ASA, Plavix, statin, antianginal therapy regimen. (4) Hyperlipidemia: Qualifiers: Hyperlipidemia type: other hyperlipidemia Qualified Code(s): E78.49 - Other hyperlipidemia Code(s): E78.5 - Hyperlipidemia, unspecified Status: Acute Assessment and Plan: Continue statin. (5) Hypertension: Qualifiers: Hypertension type: primary hypertension Qualified Code(s): I10 - Essential (primary) hypertension Code(s): I10 - Essential (primary) hypertension Status: Acute Assessment and Plan: Continue home antihypertensive regimen. Plan Cardiology will sign off at this time. Please call us back if needed. History of Present Illness History of Present Illness Consult date/time: 12/16/23 16:14 Requesting physician: Jovani Leung MD Consult reason: Other (Elevated troponin) Reason For Visit: Pneumonia, Chest Pain Narrative: We are consulted for elevated troponin. This is a 68 year old male with complex coronary artery disease s/p CABG with subsequent PCIs, hypertension, hyperlipidemia, type 2 diabetes mellitus, TIKA. In August 2023, patient underwent complex PCI with Dr. García at [facility] -- underwent successful restenting of diffuse restenosis of NUÑEZ to LAD site including anastomotic stent fracture with 2.5mm x 38mm, 2.75mm x 26mm and 2.75mm x 12mm JETT. Patient reports that overall he has been doing well since his PCI. Did have some angina afterwards which subsequently resolved after some time. Patient states that he developed a productive cough with green sputum. His had similar flu-like symptoms. He gets chest pain only with coughing but otherwise no pain. Workup shows CT with tree-in-bud opacities, predominantly in left lower lobe, mediastinal and bilateral hilar lymphadenopathy. He is being treated for pneumonia. Since treatment, he states he is feeling much better today. Troponins were checked and were found to be: 0.024, 0.079, 0.123, 0.361, 0.750. EKGs are unchanged compared to prior ones. Tele without any significant arrhythmias. Review of Systems Review of Systems: All systems reviewed & are unremarkable except as noted in HPI and below (HPI) [facility] Past Medical History Medical History Carotid stenosis Bilateral 50-69% noted on Doppler 12/2022 with CTA demonstrate 18% stenosis of the right internal carotid and 43% stenosis of the left Coronary tiffanie
--- NOTE | 2023-12-16 18:41 | PM.IMPN ---
Progress Note: A&P Assessment and Plan (1) Pneumonia: Qualifiers: Laterality: left Lung location: lower lobe of lung Pneumonia type: due to unspecified organism Qualified Code(s): J18.9 - Pneumonia, unspecified organism Code(s): J18.9 - Pneumonia, unspecified organism Status: Acute (2) Elevated troponin: Code(s): R79.89 - Other specified abnormal findings of blood chemistry Status: Acute (3) GERD (gastroesophageal reflux disease): Qualifiers: Esophagitis presence: esophagitis presence not specified Qualified Code(s): K21.9 - Gastro-esophageal reflux disease without esophagitis Code(s): K21.9 - Gastro-esophageal reflux disease without esophagitis Status: Acute (4) Diverticulosis: Code(s): K57.90 - Diverticulosis of intestine, part unspecified, without perforation or abscess without bleeding Status: Acute (5) NOE (iron deficiency anemia): Qualifiers: Iron deficiency anemia type: chronic blood loss Qualified Code(s): D50.0 - Iron deficiency anemia secondary to blood loss (chronic) Code(s): D50.9 - Iron deficiency anemia, unspecified Status: Acute (6) Hypertension: Qualifiers: Hypertension type: primary hypertension Qualified Code(s): I10 - Essential (primary) hypertension Code(s): I10 - Essential (primary) hypertension Status: Acute (7) Hyperlipidemia: Qualifiers: Hyperlipidemia type: other hyperlipidemia Qualified Code(s): E78.49 - Other hyperlipidemia Code(s): E78.5 - Hyperlipidemia, unspecified Status: Acute (8) Obstructive sleep apnea: Code(s): G47.33 - Obstructive sleep apnea (adult) (pediatric) Status: Acute (9) Coronary artery disease: Qualifiers: Coronary Disease-Associated Artery/Lesion type: [place] artery [place] vs. transplanted heart: [place] heart Associated angina: with stable angina Qualified Code(s): I25.118 - Atherosclerotic heart disease of [place] coronary artery with other forms of angina pectoris Code(s): I25.10 - Atherosclerotic heart disease of [place] coronary artery without angina pectoris Status: Acute (10) Type 2 diabetes mellitus: Qualifiers: Diabetes mellitus alf insulin use: without alf use Diabetes mellitus complication status: without complication Qualified Code(s): E11.9 - Type 2 diabetes mellitus without complications Code(s): E11.9 - Type 2 diabetes mellitus without complications Status: Acute Plan Admit patient to medical unit under full inpatient status Patient has X-ray and clinical findings consistent with bilateral pneumonia Chest CT scan was done which showed tree-in-bud opacities predominantly in the left lower lobe with possible atypical infection Pulmonary evaluation ordered to address abnormal chest CT scan findings Spoke with bone patient likely has viral bronchiolitis with atypical pneumonia with very unlikely possibility for tuberculosis Continue with IV antibiotics in the form of Rocephin and Zithromax which we'll continue on the floor Follow-up on blood cultures sent from ER Sputum cultures ordered as well which will be followed Oxygen via nasal cannula to keep O2 sats around 94% ... Wean off as tolerated Continue with the DuoNeb breathing treatments on the floor as needed Patient has elevated troponins 0.079, 0.123, 0.361 and 0.75 Given his significant history of CAD, Cardiology evaluation ordered from evaluation and further treatment recommendations Cardiology evaluated patient at bedside and believes he has myocardial to monitor due to his pneumonia. No further intervention as per cardiology Continue with his home cardiac meds DC patient home likely in am on oral antibiotics when patient is clinically stable, breathing is back to baseline and patient is cleared by Cardiology for discharge Strictly advised patient to take his health seriously and follow-
[2023-12-16] MEDS: IRON SUCROSE COMPLEX 500 MG in SODIUM CHLORIDE 0.9% IV 250 ML 79 MG IVPB (20:10)
[2023-12-16] MEDS: ATORVASTATIN 40 MG TABLET 80 MG PO (20:14)
[2023-12-17] VITALS (15 sets, daily range): BP systolic 115–149; BP diastolic 52–67; PULSE 52–90; RESP 13–24; TEMP 36.6–36.9; O2SAT 90–98
[2023-12-17 00:43] LABS: Glucose Point of Care 123 mg/dl (65-105)
[2023-12-17 05:41] LABS: Basophils Absolute Auto 0.1 K/mm3 (0.0-0.1); Basophils Percent Auto 0.9 % (0.2-1.2); Eosinophils Absolute Auto 0.3 K/mm3 (0-0.3); Eosinophils Percent Auto 5.4 % (0-4.4); Hematocrit 36.8 % (42.0-52.0); Hemoglobin 10.5 g/dL (14.0-18.0); Immature Granulocyte Absolute 0.02 K/mm3 (0.00-0.031); Immature Granulocyte Percent A 0.3 % (0-0.5); Lymphocytes Absolute Auto 2.36 K/mm3 (0.9-3.2); Lymphocytes Percent Auto 37.3 % (18.3-44.2); Mean Corpuscular HGB Conc 28.5 g/dl (32-36); Mean Corpuscular Volume 77.1 fl (80-100); Mean Platelet Volume 8.5 fl (7.4-10.4); Monocytes Absolute Auto 0.7 K/mm3 (0.1-0.6); Monocytes Percent Auto 10.7 % (2.6-8.5); Neutrophils Absolute Auto 2.9 K/mm3 (1.3-6.7); Neutrophils Percent Auto 45.4 % (45.5-73.1); Platelet Count Result 346 k/mm3 (150-375); Red Blood Count 4.77 M/mm3 (4.6-6.20); Red Cell Distribution Width 23.9 % (11.5-14.5); White Blood Count 6.3 K/mm3 (4.5-10.0)
[2023-12-17 05:51] LABS: Anion Gap 7 mmol/L (8-16); Blood Urea Nitrogen 16 mg/dL (9-20); Carbon Dioxide 26 mmol/L (22-30); Chloride 104 mmol/L (98-107); Estimated CRCL calculation 96 ml/min; Estimated Glomerular Filt Rate > 60; Glucose 115 mg/dL (65-110); Potassium 4.5 mmol/L (3.4-5.0); Sodium 137 mmol/L (137-145)
[2023-12-17 06:50] LABS: Anisocytosis 1+ (NORMAL); Hypochromasia 1+ (NORMAL); Platelet Estimate Adequate (Adequate); Poikilocytosis 1+ (NORMAL); Schistocytes Rare (NORMAL)
[2023-12-17 07:35] LABS: Glucose Point of Care 111 mg/dl (65-105)
--- NOTE | 2023-12-17 07:47 | PM.PNPUL ---
Progress Note: A&P Assessment and Plan (1) Pneumonia: Qualifiers: Laterality: left Lung location: lower lobe of lung Pneumonia type: due to unspecified organism Qualified Code(s): J18.9 - Pneumonia, unspecified organism Code(s): J18.9 - Pneumonia, unspecified organism Status: Acute Assessment and Plan: Patient presents with a 10 day history of respiratory illness. His had the same illness. He had a leukocytosis, fever and a CT scan with tree-in-bud infiltrates left lower lobe greater than right (new since CT abdomen 06/15/2022). He was treated with ceftriaxone and azithromycin and has clinically improved. 12/16/23: Patient tells me he is much improved. Currently the patient tells me that his pain is resolved 100% better. Wheezes are resolved, 100% better. His cough is not 50% better. He is actually making more phlegm but it is thinner and now light yellow, he is afebrile. His white blood cell count is 8.2, his creatinine is 0.6. Currently the patient is on 1.5 L nasal cannula oxygen with saturations 98%. I turned the oxygen off and 10 minutes later saturations were 94%. Blood cultures are negative. Sputum culture is pending. I do not believe this is tuberculosis or atypical mycobacterial disease. Plan: His antibiotics were not continued from the ED to in the hospital and I have written for ceftriaxone and azithromycin. I will repeat a chest x-ray to reassess his left lower lobe infiltrate to document stability. I will send a mycoplasma IgM, urine Legionella, urine pneumococcal and extended respiratory pathogen panel to try to identify a etiology. I suspect this is a viral infection with a viral bronchiolitis resulting in tree-in-bud infiltrates. He does not need respiratory precautions for tuberculosis or atypical mycobacterial disease. I will send a QuantiFERON gold test. If he remains stable overnight anticipate discharge from a pulmonary perspective on 12/17/2023. 12/17/23: Patient tells me he is breathing back to his normal. He continues to improve and his cough is 70% better. He has minimal phlegm that is pale yellow. He is afebrile. White blood cell count 6.3, creatinine 0.7. Patient is on room air with saturations 96%. Urine Legionella, urine pneumococcal, respiratory pathogen panel, QuantiFERON gold are pending. Plan: From a Pulmonary perspective patient is ready to be discharged on these pulmonary medications Levaquin 750 mg PO Q day X 7 days Oxygen 2 L when sleeps. Oxygen at rest and with activity per formal home O2 assessment which I have ordered. Follow-up in the Pulmonary Clinic in 4 weeks. I have given him our business card and informed our care team coordinator scheduler. Discussed with Dr. Leung, will sign off, call with questions. (2) Obstructive sleep apnea: Code(s): G47.33 - Obstructive sleep apnea (adult) (pediatric) Status: Acute Assessment and Plan: The patient tells me is diagnosed with obstructive sleep apnea in 2012 and wore CPAP machine religiously and this gave him improvement up until about 3 years ago when his machine broke and then it was recalled. He never got a new machine. He the in the [facility] tells me [facility]. This was never performed. The patient has lost weight at his peak he was 260 he lost weight to 200 and now weighs 220. The sleeps in a separate room and states she is unaware of any witnessed sleep apneas. His snoring is better and he has no daytime hypersomnia. Plan: I will perform an overnight oximetry on room air to assess his oxygen at night. The patient will need an outpatient sleep study to determine if he still has sleep apnea and what his optimal CPAP pressures would be. 11/17/23: Patient had an overnight oximetry on room air with recording duration of 7 hours. Average saturation 90%. Low saturation 66%. Time with saturation less than or equal to 88% was 52 minutes or 15% of the monitored
[2023-12-17] MEDS: EZETIMIBE 10 MG TABLET PO (08:40)
[2023-12-17] MEDS: polyethylene glycoL 3350 17 GM POWD.PACK PO (08:40)
[2023-12-17] MEDS: ISOSORBIDE MONONITRATE 30 MG TAB.ER.24H PO (08:40)
[2023-12-17] MEDS: ENOXAPARIN 40 MG/0.4 ML SYRINGE SUB-Q (08:40)
[2023-12-17] MEDS: EMPAGLIFLOZIN 25 MG TABLET PO (08:41)
[2023-12-17] MEDS: ASPIRIN 81 MG CHEWABLE TABLET PO (08:41)
[2023-12-17] MEDS: CHOLECALCIFEROL 1,000 UNITS TABLET 2000 UNITS PO (08:41)
[2023-12-17] MEDS: MULTIVITAMINS /C LUTEIN (CENTRUM SILVER) TABLET *BKC 1 TAB PO (08:41)
[2023-12-17] MEDS: VITAMIN B COMPLEX CAPSULE 1 CAP PO (08:41)
[2023-12-17] MEDS: CLOPIDOGREL BISULFATE 75 MG TABLET PO (08:41)
[2023-12-17] MEDS: METOPROLOL TARTRATE 50 MG TAB PO (08:41)
[2023-12-17] MEDS: PANTOPRAZOLE 40 MG TABLET PO (08:42)
[2023-12-17] MEDS: CYANOCOBALAMIN 1,000 MCG TABLET 1000 MCG PO (08:42)
[2023-12-17] MEDS: lisinopriL 10 MG TABLET PO (08:42)
[2023-12-17] MEDS: ACETAMINOPHEN 500 MG TABLET 1000 MG PO (08:43)
[2023-12-17] MEDS: IRON SUCROSE COMPLEX 500 MG in SODIUM CHLORIDE 0.9% IV 250 ML 79 MG IVPB (10:48)
[2023-12-17] MEDS: AZITHROMYCIN 500 MG/NS 250 ML 500 MG/250 ML BAG 250 MG IVPB (10:48)
[2023-12-17 11:37] LABS: Free T4 Free Thyroxine 1.19 ng/mL (0.78-2.19)
[2023-12-17 11:45] LABS: Glucose Point of Care 126 mg/dl (65-105)
--- NOTE | 2023-12-17 12:12 | HOMEO2EVAL ---
Evaluation was performed at [facility] Home Oxygen Evaluation RC: Home Oxygen (O2) Evaluation Start: 12/17/23 07:49 Freq: ONCE Status: Active Protocol: RPE Activity Type Activity Date Activity User E-sign Co-sign Detail Recorded Client Recorded Date Recorded By Document 12/17/23 11:35 [email or web address] [email or web address] 12/17/23 12:12 DJO Document 12/17/23 11:40 [email or web address] [email or web address] 12/17/23 12:12 DJO Document 12/17/23 11:50 [email or web address] [email or web address] 12/17/23 12:12 DJO 12/17/23 12/17/23 12/17/23 11:35 11:40 11:50 Home O2 Evaluation [Oxygen] -Test Phase Resting Exercise Resting -Oxygen Delivery Room Air Room Air Room Air [Pulse Oximetry] -Pulse Oximetry (90-100 %) 95 94 95 [Pulse Rate] -Pulse Rate (60-100 beats/min) 75 90 78 [Charges] -Evaluation Charges O2 Evaluation by Pulmonary
--- NOTE | 2023-12-17 12:14 | PCRCNOTE ---
HOME O2 EVAL COMPLETE, NO REQUIREMENTS
--- NOTE | 2023-12-17 13:53 | PCRTNOTE ---
NOCTURNAL HOME O2 SET UP WITH [facility]. PHONE NUMBER [phone]
--- NOTE | 2023-12-17 15:46 | PM.DS ---
DS: Admitting Diagnosis Discharge Date 12/17/2023: Admitting Diagnosis Community-acquired pneumonia Elevated troponins Coronary artery disease DS: Discharge Diagnosis Discharge Diagnosis (1) Pneumonia: Qualifiers: Laterality: left Lung location: lower lobe of lung Pneumonia type: due to unspecified organism Qualified Code(s): J18.9 - Pneumonia, unspecified organism Code(s): J18.9 - Pneumonia, unspecified organism Status: Acute (2) Chest pain: Qualifiers: Chest pain type: unspecified Qualified Code(s): R07.9 - Chest pain, unspecified Code(s): R07.9 - Chest pain, unspecified Status: Acute (3) Elevated troponin: Code(s): R79.89 - Other specified abnormal findings of blood chemistry Status: Acute (4) GERD (gastroesophageal reflux disease): Qualifiers: Esophagitis presence: esophagitis presence not specified Qualified Code(s): K21.9 - Gastro-esophageal reflux disease without esophagitis Code(s): K21.9 - Gastro-esophageal reflux disease without esophagitis Status: Acute (5) Diverticulosis: Code(s): K57.90 - Diverticulosis of intestine, part unspecified, without perforation or abscess without bleeding Status: Acute (6) NOE (iron deficiency anemia): Qualifiers: Iron deficiency anemia type: chronic blood loss Qualified Code(s): D50.0 - Iron deficiency anemia secondary to blood loss (chronic) Code(s): D50.9 - Iron deficiency anemia, unspecified Status: Acute (7) Anemia: Qualifiers: Anemia type: unspecified type Qualified Code(s): D64.9 - Anemia, unspecified Code(s): D64.9 - Anemia, unspecified Status: Acute (8) Hypertension: Qualifiers: Hypertension type: primary hypertension Qualified Code(s): I10 - Essential (primary) hypertension Code(s): I10 - Essential (primary) hypertension Status: Acute (9) Hyperlipidemia: Qualifiers: Hyperlipidemia type: other hyperlipidemia Qualified Code(s): E78.49 - Other hyperlipidemia Code(s): E78.5 - Hyperlipidemia, unspecified Status: Acute (10) Obstructive sleep apnea: Code(s): G47.33 - Obstructive sleep apnea (adult) (pediatric) Status: Acute (11) Coronary artery disease: Qualifiers: Associated angina: with stable angina Coronary Disease-Associated Artery/Lesion type: [place] artery [place] vs. transplanted heart: [place] heart Qualified Code(s): I25.118 - Atherosclerotic heart disease of [place] coronary artery with other forms of angina pectoris Code(s): I25.10 - Atherosclerotic heart disease of [place] coronary artery without angina pectoris Status: Acute (12) Type 2 diabetes mellitus: Qualifiers: Diabetes mellitus complication status: without complication Diabetes mellitus mcc insulin use: without intermediate card tender use Qualified Code(s): E11.9 - Type 2 diabetes mellitus without complications Code(s): E11.9 - Type 2 diabetes mellitus without complications Status: Acute DS: Summary Hospital Course Reason for hospitalization: Patient came to the ER for evaluation of his cough with greenish sputum Hospital Course: H&P: HPI History of Present Illness Date/Time: 12/15/23? 09:48 Chief Complaint: Patient came to the ER for evaluation of his cough with greenish sputum Narrative: He is a pleasant 68 years old white male with known CAD status post 5 cardiac stents at [facility] in August 2023.? He is complaining of cough for the last 10 days which is slowly worsening.? He started having greenish sputum 3 days ago as well.? He did not see any medical doctor and waited in hope that his medical condition would get better.? Finally he got weak, tired and fatigued and came to the ER for evaluation. Workup was done which showed left lower lobe pneumonia.? He also had some borderline at to cardiac enzymes.? He denies any chest pain, pal
[2023-12-17 16:17] LABS: Glucose Point of Care 94 mg/dl (65-105)
[2023-12-18 11:18] LABS: NIL 0.03 IU/mL; Quantiferon TB Plus, 1T NEGATIVE (NEGATIVE); TB1-NIL <0.00 IU/mL; TB2-NIL <0.00 IU/mL
[2023-12-18 16:15] LABS: Mycoplasma IgM Antibody Titer 55 U/mL (<770)
[2023-12-19 15:08] LABS: Adenovirus DNA Not Detected (Not Detected); Chlamydophila pneumoniae Not Detected (Not Detected); Coronavirus 229E Detected (Not Detected); Coronavirus HKU1 Not Detected (Not Detected); Coronavirus NL63 Not Detected (Not Detected); Coronavirus OC43 Not Detected (Not Detected); Human Metapneumovirus Not Detected (Not Detected); Human Parainfluenza Virus 1 Not Detected (Not Detected); Human Parainfluenza Virus 2 Not Detected (Not Detected); Human Parainfluenza Virus 3 Not Detected (Not Detected); Human Parainfluenza Virus 4 Not Detected (Not Detected); Human RSV B Not Detected (Not Detected); Influenza A Not Detected (Not Detected); Influenza B Not Detected (Not Detected); Mycoplasma pneumoniae Not Detected (Not Detected); Rhinovirus/Enterovirus Not Detected (Not Detected)
[2023-12-20 06:52] LABS: Legionella pneumophila Ag Ur Not Detected (Not Detected)
[2023-12-20 11:57] LABS: Pneumococcal Antigen Urine Not Detected (Not Detected)
== END 2023-12-17 16:59 | disposition home or self-care (01) | DRG 194 ==
LOC: ANHED 22:31 → ANHICU 12-15 01:29
PROVIDERS: Internal Medicine Pulmonary Disease; Nurse Practitioner Family; Admitting Provider Internal Medicine; Emergency Provider Physician Assistant; PCP Nurse Practitioner; Visit Provider Family Medicine
DX: J18.9 Pneumonia, unspecified organism (principal); I24.89 Other forms of acute ischemic heart disease; R79.89 Other specified abnormal findings of blood chemistry; D50.9 Iron deficiency anemia, unspecified; E78.5 Hyperlipidemia, unspecified; E11.9 Type 2 diabetes mellitus without complications; G47.33 Obstructive sleep apnea (adult) (pediatric); I25.10 Atherosclerotic heart disease of native coronary artery without angina pectoris; I10 Essential (primary) hypertension; K21.9 Gastro-esophageal reflux disease without esophagitis; K57.90 Diverticulosis of intestine, part unspecified, without perforation or abscess without bleeding; Z11.52 Encounter for screening for COVID-19; Z79.02 Long term (current) use of antithrombotics/antiplatelets; Z95.5 Presence of coronary angioplasty implant and graft; Z79.82 Long term (current) use of aspirin; Z79.84 Long term (current) use of oral hypoglycemic drugs; Z85.828 Personal history of other malignant neoplasm of skin; Z95.1 Presence of aortocoronary bypass graft; Z87.891 Personal history of nicotine dependence
CPT/HCPCS: 36415; 71045; 71046; 71250; 80048; 80053; 82465; 82728; 82948; 83540; 83550; 83605; 83718; 83721; 83735; 84100; 84439; 84443; 84478; 84484; 85025; 85380; 86480; 86738; 87040; 87070; 87205; 87449; 87633; 87637; 87899; 93005; 94618; 94762; 96365; 96367; 96375; 99285; A9270; G0378; J0456; J0696; J1650; J1756; J2270; J2405; J7050

== ENCOUNTER 2024-01-19 08:21 | Outpatient (CLI) | payer MEDICARE, SELFPAY ==
--- NOTE | 2024-02-05 20:01 | WPDSLEEPSTUD ---
Sleep Study Date of Study: 01/19/24 Ordering Provider: Jose D Nolan MD Interpreting Physician: Debbie Velazquez MD Sleep Study Type: Split Polysomnogram Height: 1.68 m Weight: 100.698 kg Body Mass Index: 35.8 Neck Circumference (inches): 18 [place]: 6 Reason for Sleep Study Known obstructive sleep apnea diagnosed in 2012, used CPAP until 3 years ago. His machine broke, and he never got another one. [facility], and never had it. Sleep History Sergey Franks is a 68-year-old man with obstructive sleep apnea, was treated through the [facility]. His machine broke about 3 years ago, and he was told that he had to have another sleep study to get a new machine. He was in the hospital in November 2023 with coronavirus. He never awakens from sleep feeling short of breath. He never wakes at night with heartburn, belching or coughing.??He rarely snores loudly enough that others complain. He occasionally has trouble sleeping when he has a cold. He never wakes up gasping for breath during the night. He never has breathing problems at night. He occasionally sweats excessively at night. He never notices his heart pounding or beating irregularly during the night. He occasionally falls asleep during the day. He occasionally falls asleep involuntarily, however never falls asleep while driving. He never experiences loss of muscle tone with strong emotion. He never has daytime difficulty at work due to excessive sleepiness. He never feels paralyzed on waking or falling asleep. He never experiences vivid dreams upon waking or falling asleep. He never feels afraid of going to sleep. He never has nightmares. He rarely recalls his dreams. He never has thoughts racing through his mind. He never feels sad or depressed. He never feels anxiety. He rarely notices parts of his body jerk. He never kicks during the night. He never feels crawling or aching feelings in his legs. He rarely feels leg pain at night. He never has morning jaw pain, rarely grinds his teeth at night. He occasionally feels bothered by pain during the day, occasionally is awakened by pain during the night. He occasionally wakes up feeling stiff in the morning, and he occasionally wakes feeling sore or achy. He occasionally awakens with pain in his neck, spine, or joints. Normal bedtime is between 8:30 p.m. and 9:00 p.m., falling asleep within 5-10 minutes, waking between 2-3 times at night, uses the bathroom, returns to sleep within 10 minutes. Wake time is 5:30 a.m.. On weekends, he goes to bed at 10:00 p.m., wakes at 7:00 am or 8:00 a.m. He takes naps in the afternoon or evening, however a short nap lasting 10-15 minutes is not refreshing. Habits:??Tobacco: former smoker, 1.5 ppd x 29 years Caffeine: i cup of coffee a day. Alcohol: none Recreational substances: none PMFSH Past Medical History Medical History Carotid stenosis Bilateral 50-69% noted on Doppler 12/2022 with CTA demonstrate 18% stenosis of the right internal carotid and 43% stenosis of the left Coronary artery disease Diverticulitis Diverticulosis Gastritis GERD (gastroesophageal reflux disease) Hyperlipidemia Hypertension NOE (iron deficiency anemia) Obstructive sleep apnea Skin cancer Type 2 diabetes mellitus Surgical History Surgical History History of cardiac catheterization History of colonoscopy with polypectomy History of coronary artery bypass graft (12/2010) Family History Family History Father Family history of congestive heart failure Diabetes mellitus Mother Diabetes mellitus Sibling Hypothyroidism Social History Social History Social History: Patient lives with his . They were in 1990. They have 3 small dogs and 2 cats. He does no
[2024-02-05 20:08] VITALS: BMI 35.8
== END 2024-01-20 05:50 | disposition home or self-care (01) ==
LOC: ANHCSM 08:22
PROVIDERS: PCP Nurse Practitioner; Visit Provider Internal Medicine Pulmonary Disease
DX: G47.33 Obstructive sleep apnea (adult) (pediatric) (principal)
CPT/HCPCS: 95811

== ENCOUNTER 2024-02-12 10:25 | Outpatient (CLI) | payer MEDICARE, SELFPAY ==
--- NOTE | ~2024-02-12 | CT_ITS ---
EXAMINATION:CT diagnostic chest wo con DATE: 02/12/2024 12:13 INDICATION: Coronavirus infection, unspecified. Pneumonia. TECHNIQUE: Computed tomography (CT) of the chest was performed without intravenous contrast. Automate d exposure control and iterative reconstruction technique were employed. The dose-length product (DLP ) was 718.16 mGy-cm. COMPARISON: Chest CT 12/14/2023, neck CT 02/19/2023, CT abdomen and pelvis 06/15/2022 FINDINGS: There is mild atelectasis bilaterally. There are a few chronic nodules in the lungs measuri ng up to 4 mm, likely benign. There is been interval resolution of the left lower lobe pneumonia. The re is mild emphysema. No pleural effusion. The heart size is normal. There are changes of coronary ar maribell bypass grafting. No pericardial effusion. Aortic atherosclerosis is noted. There is severe cervi yanira spondylosis and mild thoracic spondylosis. IMPRESSION: 1. Interval resolution of the left lower lobe pneumonia. 2. Mild emphysema. Reviewed, dictated and finalized at location E.
== END 2024-02-12 10:26 | disposition home or self-care (01) ==
PROVIDERS: PCP Nurse Practitioner; Visit Provider Internal Medicine Pulmonary Disease
DX: B34.2 Coronavirus infection, unspecified (principal); J18.9 Pneumonia, unspecified organism; J43.9 Emphysema, unspecified
CPT/HCPCS: 71250

== ENCOUNTER 2024-06-24 08:37 | Outpatient (CLI) | payer MEDICARE, SELFPAY ==
[2024-06-24 12:10] LABS: Alanine Aminotransferase 20 U/L (6-50); Albumin Level 3.9 g/dL (3.5-5.1); Alkaline Phosphatase 53 U/L (38-126); Anion Gap 13 mmol/L (4-12); Aspartate Amino Transferase 23 U/L (17-59); Bilirubin,Total 0.6 mg/dL (0.2-1.3); Blood Urea Nitrogen 17 mg/dL (9-20); Calcium 9.1 mg/dL (8.4-10.2); Carbon Dioxide 22 mmol/L (22-30); Chloride 102 mmol/L (98-107); Cholesterol 117 mg/dL (0-200); Estimated Glomerular Filt Rate > 60; Glucose 134 mg/dL (65-110); HDL Direct 41 mg/dL; Potassium 4.3 mmol/L (3.4-5.0); Sodium 137 mmol/L (137-145); Triglycerides 154 mg/dL (<150)
[2024-06-24 12:21] LABS: LDL Cholesterol Direct 56 mg/dL
[2024-06-24 12:41] LABS: Prostate Specific Antigen 0.7 ng/mL (< OR = 4.0)
[2024-06-24 13:31] LABS: MALB Creatinine Ratio < 9.0 mg/g (0-30); Microalbumin Urine Random < 6.0 mg/L (0-16.7)
== END 2024-06-24 08:38 | disposition home or self-care (01) ==
LOC: ANHLAB 08:42
PROVIDERS: PCP Nurse Practitioner; Visit Provider Nurse Practitioner
DX: Z12.5 Encounter for screening for malignant neoplasm of prostate (principal); I25.118 Atherosclerotic heart disease of native coronary artery with other forms of angina pectoris; E78.5 Hyperlipidemia, unspecified; E11.9 Type 2 diabetes mellitus without complications; Z79.899 Other long term (current) drug therapy
CPT/HCPCS: 36415; 80053; 80061; 82043; 84153; 84443; G0103

== ENCOUNTER 2024-06-27 09:29 | Outpatient (CLI) | payer MEDICARE, SELFPAY ==
[2024-06-27 12:43] LABS: Hemoglobin A1C 6.8 % (<5.7)
== END 2024-06-27 09:30 | disposition home or self-care (01) ==
PROVIDERS: PCP Nurse Practitioner; Visit Provider Nurse Practitioner
DX: E11.9 Type 2 diabetes mellitus without complications (principal)
CPT/HCPCS: 36415; 83036

== ENCOUNTER 2025-06-22 07:32 | Outpatient (CLI) | payer MEDICARE, SELFPAY ==
--- OUTSIDE RECORDS SUMMARY | 2025-06-22 07:36 | XMS_ITS | Continuity of Care Document ---
Author Name [facility] Organization [facility] Care Team Providers Care Computer Animator Name Role Phone [facility] Unavailable Unavailable Problems Combined list of problems from Department of Defense and Veterans Affairs facilities. It does not include entries that were removed or entered in error. Problem Status Onset Date Problem Type Date of Resolution Comments Source GERD - Gastro-esophageal reflux disease Active 07/15/20 17 Condition Unknown Organization Sleep apnea syndrome Active 11/23/19 16 Condition Unknown Organization Diverticulitis Active 03/21/20 15 Condition Unknown Organization Dyspnea (SNOMED CT 577812398) Active 04/20/20 14 Condition Unknown Organization Morbid obesity (SNOMED CT 601193955) Active 02/19/20 13 Condition Unknown Organization DM - Diabetes mellitus (SNOMED CT 99107990) Active 02/13/20 12 Condition Unknown Organization HTN - Hypertension (SNOMED CT 30272701) Active 02/13/20 12 Condition Unknown Organization CAD - Coronary artery disease (SNOMED CT 69409234)1 Active 01/15/20 12 Condition 01/15/2012 - IRMA VIGIL
Dec at [facility] - 3 vessel bypass Unknown Organization HLD - Hyperlipidemia (SNOMED CT 48842521) Active 01/15/20 12 Condition Unknown Organization CAD - Coronary artery disease (SNOMED CT 95972107) Active Condition Jan 15, 2012 Entered By: IRMA VIGIL Comment: Dec at [facility] - 3 vessel bypass [facility] Coronary Artery Disease Active Condition [facility] Diverticulitis Active Condition [facility] DM - Diabetes mellitus (SNOMED CT 33711461) Active Condition [facility] Dyspnea (SNOMED CT 391248827) Active Condition [facility] GERD - Gastro-esophageal reflux disease Active Condition [facility] HLD - Hyperlipidemia (SNOMED CT 30374301) Active Condition [facility] HTN - Hypertension (SNOMED CT 46954243) Active Condition [facility] Morbid obesity (SNOMED CT 366394161) Active Condition [facility] Sleep apnea syndrome Active Condition [facility] Medications Combined list of outpatient medications from [facility] and [facility] facilities.Medications provided include 1) outpatient medications from the last 15 months, and 2) patient-reported medications. Medication Details Route Status Patient Instructions Prescription Expires Prescription Number Last Dispense Date Ordering Provider Order Date Order Qty Source ASPIRIN 81MG TAB,EC TAKE ONE TABLET BY MOUTH ONCE A DAY ORAL ACTIVE VANESSA,BRAYDEN N 2011 [facility] CINNAMON CAP/TAB TAKE 2 CAP/TAB BY MOUTH ONCE A DAY ORAL ACTIVE NYASIAELLEN ICA L 2016 [facility] COENZYME Q10 CAP/TAB TAKE 200MG BY MOUTH ONCE A DAY ORAL ACTIVE ELLEN MURRELL ICA L 2018 [facility] CRANBERRY EXTRACT CAP/TAB TAKE 1 CAP/TAB BY MOUTH ONCE A DAY ORAL ACTIVE MURRELL,ELLEN ICA L 2018 [facility] CYANOCOBALA MIN 500MCG TAB TAKE ONE TABLET BY MOUTH ONCE A DAY ORAL ACTIVE NYASIAELLEN ICA L 2018 [facility] MULTIVITAMI N/MINERAL ANTIOXIDANT CAP/TAB TAKE BY MOUTH ONCE A DAY ORAL ACTIVE NYASIAELLEN ICA L 2016 [facility] Immunizations Combined list of available immunizations from the Department of [facility] and [facility] facilities. Immunization Series Date Given Administered By Site Reaction Lot Number CVX Code Drug Surgical Specialist Status Comments Source INFLUENZA VACCINE, QUADRIVALENT, ADJUVANTED 2021 205 complet ed [facility] PNEUMOCOCCAL CONJUGATE PCV20, POLYSACCHARID E [id number] CONJUGATE, ADJUVANT, PF 2021 216 complet ed [facility] ZOSTER RECOMBINANT 1 2021 187 complet ed [facility] zoster vaccine, inactivated 2021 187 complet ed zoster vaccine, inactivat ed 06/02/22 Recorded Ambulat ory Pharmac y pneumococcal 20-valent conjugate vaccine 2021 216 complet ed pneumococ yanira 20-valent conjugate vaccine 06/02/22 Recorded Ambulat ory Pharmac y COVID-19 (MODERNA), MRNA, LNP-S, PF, 100 MCG/0.5ML DOSE OR 50 MCG/0.25ML DOSE 3 2021 207 complet ed [facility] COVID Vaccine Moderna 2021 207 complet ed COVID Vaccine Moderna 04/16/22 Recorded Ambulat ory Pharmac y COVID-19 (MODERNA), MRNA, LNP-S, PF, 100 MCG/0.5ML DOSE OR 50 MCG/0.25ML DOSE 3 2020 207 complet ed [facility] COVID Vaccine Moderna 2020 207 complet ed COVID Vaccine Moderna 09/11/21 Recorded Ambulat ory Pharmac y COVID-19 (MODERNA), MRNA, LNP-S, PF, 100 MCG/0.5 ML DOSE 2 2020 207 complet ed [facility] COVID Vaccine Moderna 2020 207 complet ed COVID Vaccine Moderna 02/02/21 Recorded Ambulat ory Pharmac y COVID-19 (MODERNA), MRNA, LNP-S, PF, 100 MCG/0.5 ML DOSE 1 2020 207 complet ed [facility] COVID Vaccine Moderna 2020 207 complet ed COVID Vaccine Moderna 01/05/21 Recorded Ambulat ory Pharmac y INFLUENZA, INJECTABLE, QUADRIVALENT, PRESERVATIVE FREE 2018 150 complet ed [facility] influenza, injectable, quadrivalent- pf 2018 150 complet ed influenza , injectabl e, quadrival ent-pf 08/23/19 Recorded Ambulat ory Pharmac y INFLUENZA, UNSPECIFIED FORMULATION 2017 88 complet ed [facility] influenza virus vaccine, unspecified 2017 88 complet ed influenza virus vaccine, unspecifi ed 10/16/18 Recorded Ambulat ory Pharmac y INFLUENZA, INJECTABLE, QUADRIVALENT, PRESERVATIVE FREE 2017 150 complet ed [facility] influenza, injectable, quadrivalent- pf 2017 150 complet ed influenza , injectabl e, quadrival ent-pf 01/13/18 Recorded Ambulat ory Pharmac y INFLUENZA, SEASONAL, INJECTABLE 2015 141 complet ed [facility] INFLUENZA, SEASONAL, INJECTABLE, PRESERVATIVE FREE 2015 140 complet ed [facility] influenza, seasonal, injectable 2015 141 complet ed influenza , seasonal, injectabl e 09/29/16 Recorded Ambulat ory Pharmac y influenza, seasonal, injectable-pf 2015 140 complet ed influenza , seasonal, injectabl e-pf 09/29/16 Recorded Ambulat ory Pharmac y ZOSTER LIVE 2015 121 complet ed [facility] zoster vaccine live 2015 121 complet ed zoster vaccine live 01/24/16 Recorded Ambulat ory Pharmac y INFLUENZA, UNSPECIFIED FORMULATION 2011 88 complet ed [facility] influenza virus vaccine, unspecified 2011 88 complet ed influenza virus vaccine, unspecifi ed 01/15/12 Recorded Ambulat ory Pharmac y TDAP 2010 115 complet ed [facility] tetanus, diphtheria, acellular pertu is 2010 115 complet ed tetanus, diphtheri a, acellular pertussis 01/14/11 Recorded Ambulat ory Pharmac y PNEUMOCOCCAL POLYSACCHARID E PPV23 2010 33 complet ed unsure on exact date, told to bring in record for us. He was certain he received it [facility] pneumococcal polysaccharid e, 23 valent 2010 33 complet ed Result Comment: unsure on exact date, told to bring in record for us. He was certain he received it Ambulat ory Pharmac y Vital Signs Combined list of inpatient and outpatient Vital Signs from Department of Defense and Veterans Affairs, ranging from 12 months to all on record, depending upon the facility. Vital Sign Value Date Comments Source Systolic Blood Pressure 132 mm[Hg] 05/16/20 23 09:05:00 One or More [facility] Facilities GEOLOGY SCIENTIST Diastolic Blood Pressure 67 mm[Hg] 05/16/2023 09:05:00 One or More [facility] Facilities GEOLOGY SCIENTIST Systolic Blood Pressure 148 mm[Hg] 05/16/20 02:45:00 One or More [facility] Facilities GEOLOGY SCIENTIST Diastolic Blood Pressure 72 mm[Hg] 05/16/2023 02:45:00 One or More [facility] Facilities GEOLOGY SCIENTIST Systolic Blood Pressure 156 mm[Hg] 05/16/20 13:59:21 One or More [facility] Facilities GEOLOGY SCIENTIST Diastolic Blood Pressure 70 mm[Hg] 05/16/2023 13:59:21 One or More [facility] Facilities GEOLOGY SCIENTIST Systolic Blood Pressure 126 mm[Hg] 04/22/20 14:33:17 One or More [facility] Facilities GEOLOGY SCIENTIST Diastolic Blood Pressure 70 mm[Hg] 04/22/2023 14:33:17 One or More [facility] Facilities GEOLOGY SCIENTIST Systolic Blood Pressure 122 mm[Hg] 05/01/20 19:23:31 One or More [facility] Facilities GEOLOGY SCIENTIST Diastolic Blood Pressure 69 mm[Hg] 05/01/2023 19:23:31 One or More [facility] Facilities GEOLOGY SCIENTIST Systolic Blood Pressure 123 mm[Hg] 08/05/20 14:09:34 One or More [facility] Facilities GEOLOGY SCIENTIST Diastolic Blood Pressure 67 mm[Hg] 08/05/2023 14:09:34 One or More [facility] Facilities GEOLOGY SCIENTIST Systolic Blood Pressure 134 mm[Hg] 10/07/20 17:51:41 One or More [facility] Facilities GEOLOGY SCIENTIST Diastolic Blood Pressure 55 mm[Hg] 10/07/2023 17:51:41 One or More [facility] Facilities GEOLOGY SCIENTIST Systolic Blood Pressure 145 mm[Hg] 05/15/20 12:10:05 One or More [facility] Facilities GEOLOGY SCIENTIST Diastolic Blood Pressure 78 mm[Hg] 05/15/2023 12:10:05 One or More [facility] Facilities GEOLOGY SCIENTIST Systolic Blood Pressure 156 mm[Hg] 05/16/20 01:15:00 One or More [facility] Facilities GEOLOGY SCIENTIST Diastolic Blood Pressure 71 mm[Hg] 05/16/2023 01:15:00 One or More [facility] Facilities GEOLOGY SCIENTIST Systolic Blood Pressure 159 mm[Hg] 05/16/20 11:44:05 One or More [facility] Facilities GEOLOGY SCIENTIST Diastolic Blood Pressure 82 mm[Hg] 05/16/2023 11:44:05 One or More [facility] Facilities GEOLOGY SCIENTIST Encounters Combined list of: 1) Encounters from Department of Veterans Affairs facilities going backup to the last 18 months, not all [place] inpatient encounters are included; 2) Encounters from the Department of [facility] facilities going backup to 280 months. Location Location Details Encounter Type Encounter Number Reason For Visit Attending Provider ADM Date DC Date Status Disposition Source [facility] Outpatient Encounter [id number] 1 01/04 [facility] Procedures Combined list of: 1) Procedures from [facility] facilities going back up to thelast 18 months, not all [place] non-surgical procedures are included; 2) All procedures from the Department of [facility] facilities. Procedure Procedure Type Code Date Perfomer Comments Sourc e ESOPHAGOGASTRODUODENO SCOPY, FLEXIBLE, TRANSORAL; WITH BIOPSY, SINGLE OR MULTIPLE Upper gastrointestinal endoscopy including esophagus, stomach, and either the duodenum and/or jejunum as appropriate; with biopsy, single or multiple [id number] Ambulatory Pharmacy CATHETER PLACEMENT IN CORONARY ARTERY(S) FOR CORONARY ANGIOGRAPHY, INCLUDING INTRAPROCEDURAL INJECTION(S) FOR CORONARY ANGIOGRAPHY, IMAGING SUPERVISION AND INTERPRETATION; WITH LEFT HEART CATHETERIZATION INCLUDING INTRAPROCEDURAL INJECTION(S) FOR Catheter placement in coronary artery(s) for coronary angiography, including intraprocedural injection(s) for coronary angiography, imaging supervision and interpretation; with left heart catheterization including intraprocedural injection(s) for left ventriculography, when performed, catheter placement(s) in bypass graft(s) (internal mammary, free arterial, venous grafts) with bypass graft angiography [id number] Ambulatory Pharmacy PERCUTANEOUS TRANSLUMINAL REVASCULARIZATION OF OR THROUGH CORONARY ARTERY BYPASS GRAFT (INTERNAL MAMMARY, FREE ARTERIAL, VENOUS), ANY COMBINATION OF INTRACORONARY STENT, ATHERECTOMY AND ANGIOPLASTY, INCLUDING DISTAL PROTECTION WHEN PERFORMED; Percutaneous transluminal revascularization of or through coronary artery bypass graft (internal mammary, free arterial, venous), any combination of intracoronary stent, atherectomy and angioplasty, including distal protection when performed; single vessel 17774 Ambulatory Pharmacy PERCUTANEOUS TRANSLUMINAL REVASCULARIZATION OF OR THROUGH CORONARY ARTERY BYPASS GRAFT (INTERNAL MAMMARY, FREE ARTERIAL, VENOUS), ANY COMBINATION OF DRUG-ELUTING INTRACORONARY STENT, ATHERECTOMY AND ANGIOPLASTY, INCLUDING DISTAL PROTECTION WHEN Ambulatory Pharmacy CATHETER PLACEMENT IN CORONARY ARTERY(S) FOR CORONARY ANGIOGRAPHY, INCLUDING INTRAPROCEDURAL INJECTION(S) FOR CORONARY ANGIOGRAPHY, IMAGING SUPERVISION AND INTERPRETATION; WITH LEFT HEART CATHETERIZATION INCLUDING INTRAPROCEDURAL INJECTION(S) FOR Catheter placement in coronary artery(s) for coronary angiography, including intraprocedural injection(s) for coronary angiography, imaging supervision and interpretation; with left heart catheterization including intraprocedural injection(s) for left ventriculography, when performed, catheter placement(s) in bypass graft(s) (internal mammary, free arterial, venous grafts) with bypass graft angiography [id number] Ambulatory Pharmacy PERCUTANEOUS TRANSLUMINAL REVASCULARIZATION OF ACUTE TOTAL/SUBTOTAL OCCLUSION DURING ACUTE MYOCARDIAL INFARCTION, CORONARY ARTERY OR CORONARY ARTERY BYPASS GRAFT, ANY COMBINATION OF INTRACORONARY STENT, ATHERECTOMY AND ANGIOPLASTY, INCLUDING A Percutaneous transluminal revascularization of acute total/subtotal occlusion during acute myocardial infarction, coronary artery or coronary artery bypass graft, any combination of intracoronary stent, atherectomy and angioplasty, including aspiration thrombectomy when performed, single vessel [id number] Ambulatory Pharmacy PERCUTANEOUS TRANSLUMINAL REVASCULARIZATION OF ACUTE TOTAL/SUBTOTAL OCCLUSION DURING ACUTE MYOCARDIAL INFARCTION, CORONARY ARTERY OR CORONARY ARTERY BYPASS GRAFT, ANY COMBINATION OF DRUG-ELUTING INTRACORONARY STENT, ATHERECTOMY AND ANGIOPLASTY, I Ambulatory Pharmacy ESOPHAGOGASTRODUODENO SCOPY, FLEXIBLE, TRANSORAL; WITH BIOPSY, SINGLE OR MULTIPLE Upper gastrointestinal endoscopy including esophagus, stomach, and either the duodenum and/or jejunum as appropriate; with biopsy, single or multiple [id number] Ambulatory Pharmacy COLONOSCOPY, FLEXIBLE; DIAGNOSTIC, INCLUDING COLLECTION OF SPECIMEN(S) BY BRUSHING OR WASHING, WHEN PERFORMED (SEPARATE PROCEDURE) Colonoscopy, flexible, proximal to splenic flexure; diagnostic, with or without collection of specimen(s) by brushing or washing, with or without colon decompression (separate procedure) 60045 Ambulatory Pharmacy COLONOSCOPY, FLEXIBLE; WITH REMOVAL OF TUMOR(S), POLYP(S), OR OTHER LESION(S) BY HOT BIOPSY FORCEPS Colonoscopy, flexible, proximal to splenic flexure; with removal of tumor(s), polyp(s), or other lesion(s) by hot biopsy forceps or bipolar cautery 66280 Ambulatory Pharmacy BIOPSY EXTERNAL EAR Biopsy external ear [phone] Ambulatory Pharmacy ESOPHAGOGASTRODUODENO SCOPY, FLEXIBLE, TRANSORAL; DIAGNOSTIC, INCLUDING COLLECTION OF SPECIMEN(S) BY BRUSHING OR WASHING, WHEN PERFORMED (SEPARATE PROCEDURE) Upper gastrointestinal endoscopy including esophagus, stomach, and either the duodenum and/or jejunum as appropriate; diagnostic, with or without collection of specimen(s) by brushing or washing (separate procedure) [id number] 016 Ambulatory Pharmacy ESOPHAGOGASTRODUODENO SCOPY, FLEXIBLE, TRANSORAL; WITH BIOPSY, SINGLE OR MULTIPLE Upper gastrointestinal endoscopy including esophagus, stomach, and either the duodenum and/or jejunum as appropriate; with biopsy, single or multiple [id number] [phone] Ambulatory Pharmacy COLONOSCOPY, FLEXIBLE; WITH REMOVAL OF TUMOR(S), POLYP(S), OR OTHER LESION(S) BY HOT BIOPSY FORCEPS Colonoscopy, flexible, proximal to splenic flexure; with removal of tumor(s), polyp(s), or other lesion(s) by hot biopsy forceps or bipolar cautery [id number] Ambulatory Pharmacy Social History Combined list of available smoking, tobacco, and other social history from Department of Defense and Veterans Affairs facilities. Social History Type Response Date Comment Sourc e Sex Representation Male (finding) 12/15/2023 Un known Organization Tobacco smoking status NHIS VA-TOBACCO FORMER USER 08/28/2023 [facility] History of tobacco use VA-TOBACCO QUIT 1 5 YRS OR MORE 08/28/2023 [facility] History of tobacco use VA-TOBACCO FORMER USER 06/02/2022 [facility] History of tobacco use VA-TOBACCO FORMER USER 04/05/2021 [facility] History of tobacco use VA-TOBACCO FORMER USER 06/23/2019 [facility] History of tobacco use VA-TOBACCO FORMER USER 11/15/2018 [facility] History of tobacco use QUIT TOBACCO >7 YEARS AGO 01/13/2018 [facility] History of tobacco use QUIT TOBACCO >7 YEARS AGO 07/13/2017 [facility] History of tobacco use QUIT TOBACCO >7 YEARS AGO 09/29/2016 [facility] History of tobacco use QUIT TOBACCO >7 YEARS AGO 11/23/2015 [facility] History of tobacco use QUIT TOBACCO >7 YEARS AGO 02/12/2015 [facility] History of tobacco use QUIT TOBACCO >7 YEARS AGO 03/20/2014 [facility] History of tobacco use QUIT TOBACCO >7 YEARS AGO 01/15/2012 [facility] Sexual Orientation Ambula tory Pharmacy Gender identity Ambulator y Pharmacy Assessment and Plan Combined list of future care activities from Department of Defense and Veterans Affairs facilities (e.g., assessment and plan notes, appointments, orders, and referrals). Additional future care activities may be listed in the Plan of Care section. Result Assessment and Plan Date Source Assessment and Plan No data available for this section 06/22/2025 Ambulatory Pharmacy Functional Status Combined list of recent functional and cognitive assessments recorded at Department of Defense and [facility] Affairs ([place] Functional [place] Measurement (FIM) Scale: 1 = Total Assistance (Subject = 0% +), 2 = Maximal Assistance (Subject = 25% +), 3 = Moderate Assistance (Subject = 50% +), 4 = Minimal Assistance (Subject = 75% +), 5 = Supervision, 6 = Modified [place] (Device), 7 = Complete [place] (Timely, Safely). Assessment Date/Time Source Assessment Type Assessment Skill Assessment Score Assessment Details No data available for this section
--- OUTSIDE RECORDS SUMMARY | 2025-06-22 07:36 | XMS_ITS | Encounter Summary ---
Author Organization [facility] Address [facility] [facility] [place] [address] Care Team Providers Care B2B Appointment Setter Name Role Phone Tiffanie Earl MD Primary Care Provider Olinda maddox Encounter Details Date Type Department Care Team (Late st Contact Info) Description 02/13/2025 Lab Requisition [facility] - DermPath Lab [address] [place] [id number] Aric Son MD [facility] DER[facility] [address] [place] [phone] Social History Tobacco Use Types Packs/Day Years Used Date Smoking Tobacco: Former Smokeless Tobacco: Never Alcohol Use Standard Drinks/Week Comments Never 0 (1 standard drink = 0.6 oz pur e alcohol) AUDIT-C Answer Date Recorded Frequency of Alcohol Consumption Never 08/04/2019 Average Number of Drinks Not on file 019 Frequency of Binge Drinking Not on file 07/17 Sex and Gender Information Value Date Recorded Sex Assigned at Not on file Legal Sex Male 2:44 PM CDT Gender Identity Not on file Sexual Orientation Not on file documented as of this encounter Plan of Treatment Not on file documented as of this encounter Procedures Procedure Name Priority Date/Time Associated Diagnosis Comments DERMATOPATHOLOGY Routine 02/07/2025 12:0 0 AM CDT documented in this encounter Results * DERMATOPATHOLOGY (02/07/2025 12:00 AM CDT) Case Report Dermatopathology Report Case: [id number] Authorizing Provider: Aric Son MD Collected: 02/07/2025 12:00 AM Ordering Location: [facility] - Received: 02/13/2025 07:19 AM DermPath Lab Pathologist: Shantanu Pandya MD Specimen: Skin, right cheek 4:23 PM CDT DERMATOPATHOLOGY LABORATORY Final Diagnosis Specimen A. SKIN, right cheek: BASAL CELL CARCINOMA, NODULAR TYPE (C44.319) 4:23 PM CDT DERMATOPATHOLOGY LABORATORY at 1623 CDT Clinical History BCC 4:23 PM CDT DERMATOPATHOLOGY LABORATORY Gross Description Specimen A: Received is one formalin filled container labeled with the patient's name and designated right cheek. The specimen consists of a shave biopsy measuring 8x7x1 mm. Jar 0. 4:23 PM CDT DERMATOPATHOLOGY LABORATORY Microscopic Description Specimen A. SKIN, right cheek: Within the dermis there are aggregates of basaloid cells with a high nuclear to cytoplasmic ratio and peripheral palisading. 4:23 PM CDT DERMATOPATHOLOGY LABORATORY Disclaimer An external and internal positive and negative controls are appropriate for the histochemical, immunohistochemical and immunofluorescence stain(s) in this case (if any), except where stated explicitly. The performance characteristics of the stain(s) cited in this report were developed and its performance characteristic determined by the Dermatopathology Laboratory at [facility], directed by Dr. Rohit Pandya. These tests need not be, and therefore are not, approved by the [place] Food and Drug Administration. The tests are used for clinical purposes. Billing Codes Specimen Charges Stain Charges 93863 1 4:23 PM CDT DERMATOPATHOLOGY LABORATORY Embedded Images 4:23 PM CDT DERMATOPATHOLOGY LABORATORY Pathology/Cytolog y TISSUE SPECIMEN FROM SKIN / Unknown 02/07/2025 02/13/2025 7:19 AM CDT Aric Son MD LAB - PATHOLOGY/CYTOLOGY ORDE MERLINE Final Result DERMATOPATHOLOGY LABORATORY [facility] - Department of Dermatology [facility] [address] [facility] [phone] documented in this encounter Visit Diagnoses Not on filedocumented in this encounter Care Teams B2B Appointment Setter Relationship Specialty Start Date End Date Tiffanie Earl MD PCP - General 08/04/19 documented as of this encounter
--- OUTSIDE RECORDS SUMMARY | 2025-06-22 07:36 | XMS_ITS | Clinical Summary ---
Author Organization [facility] Address [address] [place] [address] Care Team Providers Care Water Softener Servicer Name Role Phone Tiffanie Earl MD Primary Care Provider Olinda maddox Source Comments [facility],non-owned Affiliates and Associated Physician Practices is amultiple site organization consisting of ambulatory clinics and hospital sitesin [place], [place], [place] and [place]. This disclosure is being madepursuant to the Care Everywhere program and may not contain all information available regarding this patient. Last updated 18.[facility] Allergies No known active allergies Medications * Be aware that medications may not be up to date on this document. Alwaysverify current medications with the patient. albuterol HFA (PROVENTIL;VENT HI;PROAIR) 108 (90 Base) MCG/ACT inhaler INL 2 PFS PO Q 4 TO 6 H PRF SOB 0 04/18/2019 Active empagliflozin (JARDIANCE) 25 MG tablet Take 25 mg by mouth once daily Active lisinopril (PRINIVIL; ZESTRIL) 10 MG tablet Take 10 mg by mouth once daily Active METFORMIN HCL PO Active METOPROLOL SUCCINATE PO Active atorvastatin (LIPITOR) 80 MG tablet Take 80 mg by mouth at bedtime Active OMEPRAZOLE PO Active aspirin (ASPIRIN) 81 MG tablet Take 81 mg by mouth once daily Active CINNAMON PO Active Multiple Vitamins-Minera ls (MULTIVITAL PO) Active Social History Tobacco Use Types Packs/Day Years [...] on file Sexual Orientation Not on file Last Filed Vital Signs Vital Sign Reading Time Taken Comments Blood Pressure 117/85 10/20/2019 3:16 PM GASKET NOTCHER Pulse 85 10/20/2019 3:16 PM GASKET NOTCHER Temperature - - Respiratory Rate - - Oxygen Saturation 95% 10/20/2019 3:16 PM GASKET NOTCHER Inhaled Oxygen Concentration - - Weight 117.9 kg (260 lb) 09/29/2019 10:05 AM GASKET NOTCHER Height 167.6 cm (5' 6) 09/29/2019 10:05 AM GASKET NOTCHER Body Mass Index 41.97 09/29/2019 10:05 AM GASKET NOTCHER Plan of Treatment Health Maintenance Due Date Last Done Comments COLOGUARD (AGES 45-75) - COL ON CA SCREENING 1955 COLON MONITORING 1955 COLONOSCOPY - COLON CA SCREENING 1955 CT COLONOGRAPHY - COLON CA SCREENING 1955 Colorectal Cancer Screening 1955 FIT - COLON CA SCREENING 1955 FLEX SIG - COLON CA SCREENING 1955 HEPATITIS C SCREENING 11/09/1973 DTAP/TDAP/TD VACCINES (1 - Tdap) 1974 PNEUMOCOCCAL VACCINE 50+ (1 of 1 - PCV) 2005 ZOSTER VACCINE (1 of 2) 2005 Respiratory Syncytial Virus (RSV) Vaccine Pt: or over 60 yrs (1 - Risk 60-74 years 1-dose series) 2015 SCREENING FOR DIABETES 10/06/2019 AAA SCREENING 2020 COVID-19 VACCINE (1 - 2023-2 5 season) 2024 DEPRESSION SCREENING 11/16/2024 MEDICARE AWV CALENDAR YEAR 2024 INFLUENZA VACCINE (#1) 2025 HEPATITIS B VACCINE Aged Out No longe r eligible based on patient's age to complete this topic HIB VACCINE Aged Out No longer eligi ble based on patient's age to complete this topic HPV VACCINE Aged Out No longer eligi ble based on patient's age to complete this topic MENINGOCOCCAL (Group B) VACC INE SHARED DECISION-MAKING Aged Out No longer eligibl e based on patient's age to complete this topic MENINGOCOCCAL GROUPS A/C/Y/W VACCINE Aged Out No longer eligible b ased on patient's age to complete this topic Insurance HUMANA MEDICARE ADV HMO & PPO Care Teams Water Softener Servicer Relationship Specialty Start Date End Date Tiffanie Earl MD PCP - General 08/04/19
--- OUTSIDE RECORDS SUMMARY | 2025-06-22 07:36 | XMS_ITS | Clinical Summary ---
Author Organization [facility] Address [address] [place] [address] Care Team Providers Care Manager Risk Management Name Role Phone Unavailable Primary Care Provider Unavailabl e Social History Tobacco Use Types Packs/Day Years Used Date Smoking Tobacco: Never Assessed Sex and Gender Information Value Date Recorded Sex Assigned at Not on file Legal Sex Male 9:15 PM CDT Gender Identity Not on file Sexual Orientation Not on file Plan of Treatment Health Maintenance Due Date Last Done Comments Colorectal Cancer Screening Colonoscopy (10 Years) 1955 Hepatitis C 1973 DTaP, Tdap and Td Vaccines ( 1 - Tdap) 1974 Pneumococcal Vaccine: 50+ Ye ars (1 of 1 - PCV) 2005 Zoster Vaccines (1 of 2) 2005 COVID-19 Vaccine ( - 2023-2 5 season) 2024 RSV Immunization or 60+ Years (1 - 1-dose 75+ series) 2030 Meningococcal B Vaccine Aged Out No l onger eligible based on patient's age to complete this topic Meningococcal Vaccine Aged Out No daniel scott eligible based on patient's age to complete this topic RSV Immunizations Under 20 Months Aged Out No longer eligible based on patient's age to complete this topic
--- OUTSIDE RECORDS SUMMARY | 2025-06-22 07:36 | XMS_ITS | Clinical Summary ---
Author Organization [facility] [address] Address [address] [place] [address] Care Team Providers Care Painter Supervisor Name Role Phone Jose D Harris MD Unavailable [phone] Nate Meier NP Primary Care Provider [phone] Allergies No known active allergies Medications aspirin 81 mg chewable tablet Take 1 tablet (81 mg total) by mouth daily Active lisinopriL (PRINIVIL,ZESTRIL) 20 mg tablet Take 1 tablet (20 mg total) by mouth daily Active metFORMIN (GLUCOPHAGE) 1,000 mg tablet Take 1 tablet (1,000 mg total) by mouth 3 (three) times a day Active multivitamin tabletIndications: Vitamin Deficiency Prevention Take 1 tablet by mouth Active acetaminophen (TYLENOL) 500 mg tablet Take 2 tablets (1,000 mg total) by mouth every 6 (six) hours as needed for pain Active polyethylene glycol (MIRALAX) 17 gram packetIndications: constipation Take 1 packet (17 g total) by mouth daily Active clopidogreL (PLAVIX) 75 mg tablet Take 1 tablet (75 mg total) by mouth daily Active cholecalciferol (VITAMIN D-3) 2000 unit tablet Take 1 tablet (2,000 Units total) by mouth daily Active cinnamon bark 500 mg capsule Take 1 capsule (500 mg total) by mouth daily Active coenzyme Q10 75 mg capsule Take 1 capsule (75 mg total) by mouth daily Active cranberry 500 mg capsule Take 1 capsule by mouth daily Active krill oil 500 mg capsule Take by mouth Active cyanocobalamin (Vitamin B-12) 1,000 mcg sublingual tablet Take 1 tablet (1,000 mcg total) by mouth daily Active vitamin B complex capsule Take 1 capsule by mouth daily Active atorvastatin (LIPITOR) 80 mg tablet Take 1 tablet (80 mg total) by mouth nightly Active empagliflozin (JARDIANCE) 25 mg tablet Take 1 tablet (25 mg total) by mouth daily Active nitroglycerin (NITROSTAT) 0.[address] 1 tablet (0.4 mg total) under the tongue every 5 (five) minutes as needed for chest pain 90 tablet [address] (PROTONIX) 40 mg EC tablet Take 1 tablet (40 mg total) by mouth every morning 4 Active metoprolol tartrate (LOPRESSOR) 50 mg immediate release tablet TAKE 1 TABLET TWICE DAILY 180 tablet 2 5 Active ranolazine ER (RANEXA) 500 mg 12 hr tabletIndications: Coronary artery disease of [place] artery of [place] heart with stable angina pectoris TAKE 1 TABLET TWICE DAILY 180 tablet 2 5 Active isosorbide mononitrate ER (IMDUR) 120 mg 24 hr tabletIndications: Coronary artery disease of [place] artery of [place] heart with stable angina pectoris Take 1 tablet (120 mg total) by mouth daily 90 tablet 3 5 06/19/20 26 Active evolocumab (REPATHA) syringe syringeIndications :atherosclerotic cardiovascular disease Inject 1 mL (140 mg total) under the skin every 14 (fourteen) days 6 mL 3 5 Active evolocumab (REPATHA) syringe syringeIndications :atherosclerotic cardiovascular disease Inject 1 mL (140 mg total) under the skin every 14 (fourteen) days 6 mL 3 5 06/19/20 25 Discontin ued(Reord er) isosorbide mononitrate ER (IMDUR) 60 mg 24 hr tabletIndications: Coronary artery disease of [place] artery of [place] heart with stable angina pectoris TAKE 1 TABLET EVERY DAY 90 tablet 3 5 06/19/20 25 Discontin ued(Alter randal therapy) Active Problems Problem Noted Date Diagnosed Date Peripheral vascular disease 11/18/2024 Morbid (severe) obesity due to excess calories 0 01/14/2024 Carotid stenosis 08/17/2023 Assessment & Plan (08/19/2023 10:54 AM CDT): Carotids 12/2022 - bilateral 50-69% stenosis CTA - 18% KELLY stenosis, 43% LICA stenosis Repeat carotids here 50-69% LICA, < 50% KELLY Pt denies any neuro symptoms or field cuts TIKA (obstructive sleep apnea) 08/17/2023 Assessment & Plan (08/17/2023 12:27 AM CDT): History of TKIA with CPAP use Hasn't used CPAP in ~ 3 years as machine is broken and there has been difficulty getting it replaced Will utilize hospital machine CAD, multiple vessel 08/16/2023 Assessment & Plan (08/19/2023 10:53 AM CDT): S/p CABG x 3 in 2010, complex PCI 08/2022, and balloon angioplasty of NUÑEZ stent OSH EKG without ischemic changes but elevated troponin Cardiac cath 08/14 - EF 60%, recurrent 95-99% stenosis of the anastomotic site between the BEN and LAD as well as distal significant disease in the LAD itself (appears to be the culprit for clinical presentation and has been stented less than 1 year ago and re-dilated approximately 2 months ago), chronic 70-80% stenosis of LM, POULTRY TENDER of LAD after 1st diag and septal perforating complexes, chronic 70-80% stenosis of mid LM, POULTRY TENDER of circumflex after very small OM1, patent SVG to distal circumflex, dominant RCA that has been stented and remains patent, chronic 80% in RPDA, known occlusion of SVG to RCA Admission EKG, trend troponin Continue aspirin, atorvastatin, metoprolol, Imdur, and nitro ointment Continue heparin gtt Today without pain or complaints Hold Plavix - last dose 08/16 Monitor on telemetry Work up for CABG but due to complexity, decision made to proceed with PCI per Dr García on Tuesday 08/21 TTE: 08/18 - Mild concentric LV hypertrophy. Low normal LV systolic function. Hypokineis of septal apex and anterior apex. Reduced global LV myocardial longitudinal function and strain pattern. Normal RV fucntion, Miildly LAE. Mild MR. No significant abnormalty seen in other valves. Normal aortic root in TTE windows. Trace pericardial effusion Type 2 diabetes mellitus 08/16/2023 Assessment & Plan (08/20/2023 1:05 PM CDT): A1C on admission - 6.9 Glucoses 138-179 Hold home metformin and Jardiance in solo-operative period SSI, consistent carb diet GERD (gastroesophageal reflux disease) Assessment & Plan (08/19/2023 10:54 AM CDT): GERD with history of gastritis Recent EGD from [place] - stomach less irritated than it was before Continue Carafate and PPI States he has GI upset with the iron, added Maalox Class 2 obesity in adult 08/16/2023 Assessment & Plan (08/16/2023 11:47 PM CDT): Admission BMI 37.97 Fall precautions Bariatric equipment as necessary Atherosclerosis of autologou s vein coronary artery bypass graft 05/30/2014 Overview (02/20/2017): CRN ATH ATLG VN BPS GRFT Hypertension 04/01/2014 Overview (02/20/2017): HYPERTENSION NOS Assessment & Plan (08/16/2023 11:45 PM CDT): Takes metoprolol and lisinopril at home Continue metoprolol and titrate as tolerated Hold lisinopril for renal protection in solo-operative period Impaired glucose tolerance 04/01/2014 Overview (02/20/2017): Glucose intolerance (impaired glucose tolerance) Hyperlipidemia 04/01/2014 Overview (02/20/2017): MIXED HYPERLIPIDEMIA Assessment & Plan (08/16/2023 11:45 PM CDT): Lipid panel on admission Continue home atorvastatin History of coronary artery bypass surgery 2013 Overview (02/20/2017): AORTOCORONARY BYPASS Resolved Problems Problem Noted Date Diagnosed Date Resolved Date Acute coronary syndrome 04/01/201401/2025 Overview (02/20/2017): Acute coronary syndrome Encounters Date Type Department Care Team Description 06/19/2025 1:00 PM CDT Office Visit [facility] [address] [place] [address] Chasity Dickerson NP Coronary artery disease of [place] artery of [place] heart with stable angina pectoris (Primary Dx); Obesity, class 3 (E66.813); Body mass index [BMI] 40.0-44.9, adult (Z68.41); Mixed hyperlipidemia; Primary hypertension 05/12/2025 Telephone [facility] [address] [place] [address] Chasity Dickerson NP cardiac clearance from Last 3 Months Surgical History Surgery Date Site/Laterality Comments [place] CORONARY ARTERY BYPASS 1 CORONARY VENOUS GRAFT CABG - (Added by TW Conv) CORONARY ARTERY BYPASS GRAFT CARDIAC CATHETERIZATION COLONOSCOPY Medical History Medical History Date Comments Coronary artery disease Hyperlipidemia Hypertension GERD (gastroesophageal reflux disease) TIKA (obstructive sleep apnea) Carotid stenosis Diabetes mellitus (HCC) Cancer (HCC) skin cancer Iron deficiency anemia Family History Medical History Relation Name Comments Diabetes type II Father Heart failure Father Diabetes type II Mother Relation Name Status Comments Father Mother Social History Tobacco Use Types Packs/Day Years Used Date Smoking Tobacco: Former Cigarettes 1 0.5 Q uit: 12/28/2000 Tobacco Cessation:Counseling Given: Not Answered AUDIT-C Answer Date Recorded Q1: How often do you have a drink containing alcohol? Never 08/21/2023 Q2: How many drinks containi ng alcohol do you have on a typical day when you are drinking? Patient does not drink Q3: How often do you have si x or more drinks on one occasion? Never 08/21/2023 Personal Safety Answer Date Recorded Have you ever been in or are you currently in a harmful physical or emotional relationship or is someone making you feel afraid or unsafe? Denies 08/16/2023 Sex and Gender Information Value Date Recorded Sex Assigned at Not on file Legal Sex Male 3:29 AM ENGINEERING TECHNICIAN PARKING Gender Identity Not on file Sexual Orientation Not on file Obstetrics History Last Filed Vital Signs Vital Sign Reading Time Taken Comments Blood Pressure 140/72 06/19/2025 1:08 PM CDT Pulse 63 06/19/2025 1:08 PM CDT Temperature 37 C (98.6 F) 08/22/2023 8:17 AM CDT Respiratory Rate 18 08/22/2023 6:30 AM CDT Oxygen Saturation 96% 06/19/2025 1:08 PM CDT Inhaled Oxygen Concentration - - Weight 109.3 kg (241 lb) 06/19/2025 1:08 PM CDT Height 165.1 cm (5' 5) 06/19/2025 1:08 PM CDT Body Mass Index 40.1 06/19/2025 1:08 PM CDT Plan of Treatment Health Maintenance Due Date Last Done Comments Albumin Creatinine Ratio, Urine 1955 Colon Cancer Screening-Colonoscopy 1955 Depression Screening 1955 Hepatitis C Screening 1955 Prostate Cancer Screening-PSA 1955 Dilated Eye Exam 1955 Foot Exam 1955 Hepatitis B Screening 1973 Abdominal Aortic Aneurysm (A AA) Screen 2020 Well Visit 65+ 2020 DTaP/Tdap/Td Vaccine (2 - Td or Tdap) 01/14/2021 01/14/2011 Zoster Vaccine (3 of 3) 07/28/2022 06/02/2022, 01/23 Hemoglobin A1C 02/15/2024 08/16/2023 eGFR 08/21/2024 08/21/2023, 04/2023, 08/21/2023, Additional history exists Fall Risk Assessment 08/22/2024 08/22/2023 Covid-19 Vaccine (2023-2 5 season) 2025 07/19/2024, 01/14/2024, 02/17/2023, Additional history exists Influenza Vaccine (#1) 2025 , 01/14/2024, 08/23/2019, Additional history exists Lipid Panel 11/18/2025 11/18/2024, 08/16/2023 Pneumococcal vaccine 65+ Completed 07/09/2024, 11/2010 Medical Devices Implanted Type Area Machinist Helper Device Identifier Shelf Expiration Date Model / Serial / Lot Aethlon Medical Rohit Angio-Seal Vip 6fr Closere Device [id number] - [id number] - [id number] Implanted:Qty : 1 on 08/21/2023 by Jatin García MD PhD at [facility] Collagen Right: Common Femoral Artery Terumo [id number] Rohit 02/14/2024 [id number] / [id number] / [id number] Medtronic Card Vasc Surgery 2.50 X 38mm [employer] [place] Rx Coronary Stent [id number] - [id number] - [id number] Implanted:Qty : 1 on 08/21/2023 by Jatin García MD PhD at [facility] Stent N/A: Internal Mamary Artery Graft Medtronic Card Vasc Surgery 03/16/2026 [id number] / [id number] / [id number] Description:NUÑEZ to LAD Medtronic Card Vasc Surgery 2.75 X 26mm [employer] [place] Rx Coronary Stent [id number] - [id number] - [id number] Implanted:Qty : 1 on 08/21/2023 by Jatin García MD PhD at [facility] Stent N/A: Internal Mamary Artery Graft Medtronic Card Vasc Surgery 03/30/2024 [id number] / [id number] Description:NUÑEZ to LAD Medtronic Card Vasc Surgery 2.75 X 12mm [employer] [place] Rx Coronary Stent [id number] - [id number] - [id number] Implanted:Qty : 1 on 08/21/2023 by Jatin García MD PhD at [facility] Stent N/A: Internal Mamary Artery Graft Medtronic Card Vasc Surgery 01/25/2026 [id number] / [id number] / [id number] Description:NUÑEZ to LAD Procedures Procedure Name Priority Date/Time Associated Diagnosis Comments POCT LIPID PANEL Routine 11/18/2024 10:0 1 AM ENGINEERING TECHNICIAN PARKING Mixed hyperlipidemia EGFR Routine 08/21/2023 9:05 PM CDT HEMOGLOBIN A1C STAT 08/16/2023 10:51 PM CDT from Last 3 Months or Most Recently Relevant to Health Maintenance Results * POCT lipid panel (11/18/2024 10:01 AM ENGINEERING TECHNICIAN PARKING) Cholesterol, POC 148 mg/dL Comment:YBV=426 HDL, POC 43 mg/dL Triglycerides, POC 148 mg/dL LDL Cholesterol POC 70 mg/dL Chol/HDL Ratio, POC 1.6 Non-HDL Cholesterol, POC 105 mg/dL Cholesterol Total, POC 148 mg/dL Capillary blood 11/18/2024 1 0:01 AM ENGINEERING TECHNICIAN PARKING us Sandy Hernández MD POINT OF CARE TEST ORDE RABLES Final Result * eGFR (08/21/2023 9:05 PM CDT) eGFR >90 90 - 130 mL/min/1. 73 m2 [facility] Comment: Interpretive Data Reference Interval Normal >/= 90 mL/min/1.73m2 Mildly decreased* 60 - 89 mL/min/1.73m2 Mildly to moderately decreased 45 - 59 mL/min/1.73m2 Moderately to severely decreased 30 - 44 mL/min/1.73m2 Severely decreased 15 - 29 mL/min/1.73m2 Kidney Failure < 15 mL/min/1.73m2 *Relative to young adult level Estimated glomerular filtration rate is determined by the 2020 CKD-EPI equation recommended by the National Kidney Foundation (A Unifying Approach to GFR Estimation: Recommendations of the NKF-ASK Task Force on Reassessing the Inclusion of Race in Diagnosing Kidney Disease, JASN 2020). The CKD-EPI equation should not be used for patients with unstable renal function and has not been validated in children and those over 70. Current interpretive data was last reviewed 2021. Blood 08/21/2023 9:05 PM CDT 08/21/2023 10:20 PM CDT us Milagro Cabrera NP LAB BLOOD ORDERABLES Final Result [facility] Department [place] [address] * (ABNORMAL) Hemoglobin A1c (08/16/2023 10:51 PM CDT) Hgb A1C 6.9(H) 4.0 - 5.6 % [facility] Estimated Average Glucose 151 mg/dL [facility] Comment: The ADA recommends reporting an estimated Average Glucose (eAG) with all Hemoglobin A1c results using the equation derived from a study of 507 normal and diabetic adults. Minority populations were underrepresented and children were not included. (Diabetes Care 2020; 43(S1): S66-S76). The eAG is not equivalent to a fasting glucose. Blood 08/16/2023 10:5 1 PM CDT 08/16/2023 11:20 PM CDT Milagro Cabrera NP LAB BLOOD ORDERABLES Final Result [facility] Department [place] [address] from Last 3 Months or Most Recently Relevant to Health Maintenance Insurance [employer] CHOICE MEDICARE PPO HU[employer] CHOICE MEDICARE PPO Advance Directives For more information, please contact: [phone] Documents on File Type Date Recorded Patient Rn Spine Expl anation ADVANCE DIRECTIVE 08/25/2023 6:37 PM JOSEPH NG WILL ADVANCE DIRECTIVE 08/25/2023 6:37 PM HAYDEE R OF [place] PRESS OPERATOR-MEDICAL * Full Code (Latest Code Status on File) Date Activated Date Inactivated Comments 08/16/2023 10:22 PM 08/22/2023 3:07 PM Care Teams Painter Supervisor Relationship Specialty Start Date End Date Nate Meier NP [address] [place] [address] PCP - General Nurse Practitioner 08/17/23 Jose D Harris MD [address] [place] [address] Consulting Physician Cardiology 08/29/22
[2025-06-22 09:06] LABS: Hemoglobin A1C 7.1 % (<5.7)
[2025-06-22 09:13] LABS: Alanine Aminotransferase 20 U/L (6-50); Albumin Level 4.0 g/dL (3.5-5.1); Alkaline Phosphatase 48 U/L (38-126); Anion Gap 9 mmol/L (4-12); Aspartate Amino Transferase 26 U/L (17-59); Bilirubin,Total 0.6 mg/dL (0.2-1.3); Blood Urea Nitrogen 19 mg/dL (9-20); Calcium 9.3 mg/dL (8.4-10.2); Carbon Dioxide 24 mmol/L (22-30); Chloride 104 mmol/L (98-107); Cholesterol 143 mg/dL (0-200); Estimated Glomerular Filt Rate > 60; Glucose 123 mg/dL (65-110); HDL Direct 45 mg/dL; Potassium 4.3 mmol/L (3.4-5.0); Sodium 137 mmol/L (137-145); Total Protein 6.6 g/dL (6.3-8.2); Triglycerides 271 mg/dL (<150)
== END 2025-06-22 07:33 | disposition home or self-care (01) ==
PROVIDERS: PCP Nurse Practitioner; Visit Provider Nurse Practitioner
DX: E78.5 Hyperlipidemia, unspecified (principal); E11.9 Type 2 diabetes mellitus without complications
CPT/HCPCS: 36415; 80053; 80061; 83036

== ENCOUNTER 2025-09-08 10:00 | Outpatient (RCR) | payer MEDICARE, SELFPAY ==
--- NOTE | 2025-08-08 15:28 | OPREHPOC ---
Outpatient Therapy Plan of Care This is a Multidisciplinary Plan of Care that may contain components documented by all disciplines (PT, OT, and ST.) PT Problem 1 PT Problem #1 Knowledge Deficit PT Goal 1 Goal / Goal Update * independent with HEP Target Visit 10 PT Problem 2 PT Problem #2 Pain PT Goal 1 Goal / Goal Update 1* pt report pain rating at worst of 4/10 2* pt report no issues with getting shoulder comfortable for sleeping Target Visit 10 PT Problem 3 PT Problem #3 Impaired Flexibility PT Goal 1 Goal / Goal Update increase ROM of L shoulder, to improve use of L arm: active in standin* flexion 140' 2* abduction 120' 3* IR- reaching behind back, palm to waist 4* ER- reaching to back of head, palm to back of head Target Visit 10 PT Problem 4 PT Problem #4 Impaired Strength PT Goal 1 Goal / Goal Update increase strength of L shoulder, to improve reaching and lifting tasks in standing, 5 reps with hand weight 1* flexion to ~ 90' with 2# 2* abduction to ~ 90' with 2# Target Visit 10
--- NOTE | 2025-08-08 15:28 | PTOPEVAL1 ---
Assessment and note entered by Francia Reddy, PT Evaluation Information Assessment Status Evaluation ICD-10 Condition Codes (PT) Pain in left shoulder M25.512,Weakness R53.1 Other ICD-10 Condition Codes ( M75.02 R shoulder adhesive capsulitis PT) Onset December 2024 Subjective Information in December, fell and landed forward on elbows; shoulder was sore afterwards, then gradually more pain and tightness; sleep is disrupted; problems getting comfortable with sleeping, quick motions and lifting arm up. had MRI- A-C joint OA, adhesive capsulitis; had 2 injections into shoulder and prednisone- helped the pain, but it returned; is R hand dominant; activity: retired; is doing home and self care; home with ; Reported Pain Level Pain Score Self Report Additional Pain Score Comments pain range in the past week 1-10; anterior and top of shoulder, sore & tight increase pain: trying to get comfortable to sleep, quick motions decrease pain: rest, tylenol, muscle cream ice or heat-instruct on PRN use, 10-15 minutes, is not using not Assessment PT Clinical Summary Tone has the diagnosis of L shoulder adhesive capsulitis. Onset of gradual increase in pain after falling forward and landing on both hands. MRI report states A-C joint OA, adhesive capsulitis, rotator cuff intact. He has had 2 injections and they helped, but pain returned. Quick DASH rating of 34% limitation in activity level. He is R hand dominant. Sleeping and overhead reaching activity level are disrupted due to shoulder pain. With the evaluation: decreased ROM and strength of L shoulder with all motions, with IR most painful; standing posture with rounded shoulders; tenderness over anterior GH joint and upper traps; Skilled PT services are indicated for modalities to decrease pain, therapeutic exercises to increase shoulder ROM and strength with education for HEP, posture and body mechanics. Plan of Care Interventions Electrical Stimulation,Hot Pack/Cold Pack,Manual Therapy,Neuro Re-education,Patient/Caregiver Education,Therapeutic Activities,Therapeutic Exercise,Ultrasound,Other Other Interventions taping PT Services Indicated Yes Treatment Frequency and 1-2x/wk for 10 visits Duration These treatments will address the objective and functional deficits as defined above. The patient will be advanced safely and appropriately in order for the patient to progress towards his/her prior level of function. Additional exercises will be introduced and as well as a comprehensive home exercise program upon discharge, if needed, ?to ensure carryover of functional gains achieved in the clinic. This treatment plan has been reviewed and agreement upon by the patient.
--- NOTE | 2025-09-08 11:00 | OPREHPOC ---
Outpatient Therapy Plan of Care This is a Multidisciplinary Plan of Care that may contain components documented by all disciplines (PT, OT, and ST.) PT Problem 1 PT Problem #1 Knowledge Deficit PT Goal 1 Goal / Goal Update * independent with HEP 09-08-25 d/c goal met Target Visit 10 Progress Met PT Problem 2 PT Problem #2 Pain PT Goal 1 Goal / Goal Update 1* pt report pain rating at worst of 4/10 2* pt report no issues with getting shoulder comfortable for sleeping 09-08-25 d/c goals met Target Visit 10 Progress Met PT Problem 3 PT Problem #3 Impaired Flexibility PT Goal 1 Goal / Goal Update increase ROM of L shoulder, to improve use of L arm: active in standin* flexion 140' 2* abduction 120' 3* IR- reaching behind back, palm to waist 4* ER- reaching to back of head, palm to back of head 09-08-25 d/c goals met, except #3- palm to L SIJ Target Visit 10 Progress Partially Met PT Problem 4 PT Problem #4 Impaired Strength PT Goal 1 Goal / Goal Update increase strength of L shoulder, to improve reaching and lifting tasks in standing, 5 reps with hand weight 1* flexion to ~ 90' with 2# 2* abduction to ~ 90' with 2# 09-08-25 d/c goals met Target Visit 10 Progress Met
--- NOTE | 2025-09-08 11:00 | PTOPDC ---
Assessment and note entered by Francia Reddy, PT Assessment Status Discharge ICD-10 Condition Codes (PT) Pain in left shoulder M25.512,Weakness R53.1 Other ICD-10 Condition Codes ( M75.02 R shoulder adhesive capsulitis PT) Onset December 2024 Subjective Information shoulder is doing better; have been doing the exercises at home; still have problems reaching behind me to the back seat of the car; little pain with reaching up to refill the bird feeder and snap it back in place--lifting arm up higher; at home, can do everything OK; Reported Pain Level Pain Score 0: Self Report Additional Pain Score Comments pain range in the past week 0-3/10; increase pain: reaching behind my back and overhead decrease pain: take tylenol at bed time with sleeping, shoulder sometimes wakes me up, roll over and go back to sleep without any trouble Assessment PT Clinical Summary Tone has received 10 PT sessions for L shoulder. He has improved in all areas, compared to the initial evaluation: pain rating of 0-3/10; self assessment with Quick DASH rating of 16% limitation in activity level; pain increases with IR; education for HEP and posture completed. L shoulder ROM: active in standing/passive stretch: flexion 140/150'; abduction 140/150'; IR- reach behind back, palm to L SIJ/palm to sacrum; IR- palm to back of head. The goals were achieved, except IR ROM. Discharge PT. He is to continue with his HEP and stretching his shoulder 1-2x/day. Plan of Care PT Services Indicated No
== END 2025-09-08 12:17 | disposition home or self-care (01) ==
LOC: ANHPT 10:00
PROVIDERS: PCP Nurse Practitioner; Visit Provider Orthopaedic Surgery
DX: M75.02 Adhesive capsulitis of left shoulder (principal)
CPT/HCPCS: 97014; 97035; 97110; 97112; 97140; 97161; 97530; G0283